=== PATIENT | male | born 1960 | race Caucasian/White ===

== ENCOUNTER 2018-01-05 22:35 | Inpatient (IN) | payer OTHER ==
[~2018-01-05] VITALS: Ht 175.3 cm; Wt 115.0 kg
[~2018-01-05 22:35] MED LIST: ACIP20TA19 PO; ALBU6.7H INH; CLON.2 PO; LOSA25TA31 PO
[2018-01-05 22:38] VITALS: BP 119/67; PULSE 86; RESP 18; TEMP 98.5; O2SAT 97
[2018-01-05] MEDS ORDERED: LOSA25TA PO (23:27)
[2018-01-05] MEDS ORDERED: CLON0.1T PO (23:27)
[2018-01-05] MEDS ORDERED: METF500T PO (23:27)
[2018-01-05] MEDS ORDERED: CYAN1TAB24 PO (23:27)
[2018-01-05] MEDS ORDERED: OMEP10CA PO (23:27)
[2018-01-05] MEDS ORDERED: TRIA1CAP6 PO (23:27)
[2018-01-05] MEDS ORDERED: MULTTAB67 PO (23:27)
--- NOTE | 2018-01-05 23:51 | PD ---
HPI Chief Complaint: Musculoskeletal Complaint Time Seen by Provider: 23:42 Travel History International Travel<30 days: No Contact w/Intl Traveler<30days: No Traveled to known affect area: No History of Present Illness HPI The patient is a 57-year-old male that has been complaining of right hip pain for 4-5 weeks. At 9 PM tonight he flexed his hip slightly and felt a "pop" followed by excruciating pain around the greater trochanter. He comes in tonight with the pain of 8/10, sharp pain and throbbing pain. He denies any fever. PFSH Past Medical History Arthritis: No Asthma: No Autoimmune Disease: No Blood Disorders: No Anxiety: No Depression: No Heart Rhythm Problems: No Cancer: No Cardiovascular Problems: Yes (MURMUR) High Cholesterol: No Chemotherapy: No Chest Pain: No Congestive Heart Failure: No COPD: Yes Cerebrovascular Accident: No Diabetes: Yes (Type 2) Patient Takes Glucophage: Yes (Metformin 01/05/18 at 1200) Endocrine: No Gastrointestinal Disorders: Yes GERD: Yes Glaucoma: No Genitourinary: Yes Headaches: Yes Hepatitis: No Hiatal Hernia: Yes Hypertension: Yes Immune Disorder: No Kidney Stones: Yes Medical other: Yes (GERD, Bryant's syndrome) Musculoskeletal: No Neurologic: Yes Psychiatric: No Reproductive: No Respiratory: Yes (COPD) Migraines: Yes Myocardial Infarction: No Radiation Therapy: No Renal Failure: No Seizures: No Sleep Apnea: No Thyroid Disease: No Ulcer: No ?: Not Past Surgical History Abdominal Surgery: No AICD: No Appendectomy: No Arteriovenous Shunt: No Cardiac Surgery: No Cholecystectomy: No Ear Surgery: No Endocrine Surgery: No Eye Surgery: No Genitourinary Surgery: No Gynecologic Surgery: No Insulin Pump: No Joint Replacement: No Oral Surgery: Yes (ABCESS TOOTH REMOVAL 2002) Pacemaker: No Thoracic Surgery: No Other Surgery: Yes (KIDNEY STONE SX 1989) Social History Alcohol Use: No Tobacco Use: No (QUIT IN OCT) Substance Use: No Allergies-Medications (Allergen,Severity, Reaction): Coded Allergies: meperidine (Verified Allergy, Severe, 01/05/18) Reported Meds & Prescriptions Reported Meds & Active Scripts Active Reported B12 (Cyanocobalamin) 1,000 Mcg Tab 1 Tab PO DAILY Multiple Vitamin 1 Tab 1 Tab PO DAILY Omeprazole 10 Mg Cap 10 Mg PO DAILY Dyrenium (Triamterene) 50 Mg Cap 50 Mg PO DAILY Clonidine (Clonidine HCl) 0.1 Mg Tab 0.1 Mg PO DAILY Losartan (Losartan Potassium) 25 Mg Tab 25 Mg PO DAILY Metformin (Metformin HCl) 500 Mg Tab 500 Mg PO TIDPC Review of Systems Except as stated in HPI: all other systems reviewed are Neg Physical Exam Narrative GENERAL: The patient is alert, oriented 3 in moderate apparent distress with his right hip discomfort. His vital signs are normal. SKIN: Focused skin assessment warm/dry. HEAD: Atraumatic. Normocephalic. EYES: Pupils equal and round. No scleral icterus. No injection or drainage. ENT: No nasal bleeding or discharge. Mucous membranes pink and moist. NECK: Trachea midline. No JVD. CARDIOVASCULAR: Regular rate and rhythm. No murmur appreciated. RESPIRATORY: No accessory muscle use. Clear to auscultation. Breath sounds equal bilaterally. GASTROINTESTINAL: Abdomen soft, non-tender, nondistended. Hepatic and splenic margins not palpable. MUSCULOSKELETAL: No obvious deformities. No clubbing. No cyanosis. No edema. NEUROLOGICAL: Awake and alert. No obvious cranial nerve deficits. Motor grossly within normal limits. Normal speech. PSYCHIATRIC: Appropriate mood and affect; insight and judgment normal. Data Data Last Documented VS Vital Signs Date Time Temp Pulse Resp B/P (MAP) Pulse Ox O2 Delivery O2 Flow Rate FiO2 01/06/18 00:44 92 18 141/68 (92) 94 Room Air 01/05/18 22:[address] Hip W/O Contrast (01/05/18 ) Ketorolac Inj (Toradol Inj) (01/06/18 01:00) Bedside Glucose EDWARD.CSUGAR (01/06/18 01:50) Blood Glucose Goal (Criteria) (01/06/18 01:50) Hypoglycemia 70 Mg/Dl Or < (01/06/18 01:50) Notify Dr: Other (01/06/18 01:50) Dextrose 50% In Keven (Vial) Inj (D50w (Vi (01/06/18 02:00) Glucagon Inj (Glucagon Inj) (01/06/18 02:00) Insulin Aspart Supplemtl Scale (Novolog (01/06/18 08:00) Admit To Inpatient (01/06/18 ) Vital Signs (Adult) Q4H (01/06/18 01:50) Activity Oob With Assistance (01/06/18 01:50) Diet Regular Basic (01/06/18 Breakfast) Sodium Chlor 0.9% 1000 Ml Inj (Ns 1000 M (01/06/18 01:50) Sodium Chloride 0.9% Flush (Ns Flush) (01/06/18 02:00) Sodium Chloride 0.9% Flush (Ns Flush) (01/06/18 09:00) Ondansetron Inj (Zofran Inj) (01/06/18 02:00) Comprehensive Metabolic Panel (01/07/18 06:00) Complete Blood Count With Diff (01/07/18 06:00) Pt Request For Service (01/06/18 01:50) Case Management Consult (01/06/18 01:50) Scd Bilateral/Knee High EDWARD.BID (01/06/18 01:50) Misael Bilateral/Knee High EDWARD.QSHIFT (01/06/18 01:52) Acetaminophen (Tylenol) (01/06/18 02:00) Acetamin-Hydrocod 325-5 Mg (Hudson 5-325 (01/06/18 02:00) Docusate Sodium-Senna (Connie-Colace) (01/06/18 09:00) Magnesium Hydroxide Liq (Milk Of Magnesi (01/06/18 02:00) Sennosides (Senokot) (01/06/18 02:00) Bisacodyl Supp (Dulcolax Supp) (01/06/18 02:00) Lactulose Liq (Lactulose Liq) (01/06/18 02:00) Inpatient Certification (01/06/18 ) Consult Orthopedic (01/06/18 ) Clonidine (Catapres) (01/06/18 09:00) Losartan (Cozaar) (01/06/18 09:00) Multivitamin (Theragran) (01/06/18 09:00) Admit Order (Ed Use Only) (01/06/18 01:52) Morphine Inj (Morphine Inj) (01/06/18 02:00) MDM Medical Decision Making Medical Screen Exam Complete: Yes Emergency Medical Condition: Yes Medical Record Reviewed: Yes Differential Diagnosis avulsion fracture, hip fracture, strain right hip, contusion hip Narrative Course The patient has a pathologic fracture of the right hip. It is painful and he cannot walk. He will be admitted to [facility]. I discussed the patient with Dr. Kat. Arnaud Zavala MD Jan 05, 2018 23:51
[2018-01-06] VITALS (8 sets, daily range): BP systolic 109–144; BP diastolic 58–87; PULSE 81–96; RESP 16–22; TEMP 96.3–98.5; O2SAT 94–98
[2018-01-06] MEDS ORDERED: KETOROLAC TROMETHAMINE 60 MG/2 ML (IM) VIAL IM ONE (01:00)
--- NOTE | 2018-01-06 01:38 | RADRPT ---
EXAM DATE/TIME: 01/06/2018 00:47 [place] COMPARISON: No previous studies available for comparison. INDICATIONS : Trauma. Right hip pain x 1 month. Tonight he felt and heard a "pop" and had excruciating pain since . RADIATION DOSE: 21.54 CTDIvol (mGy) MEDICAL HISTORY : Chronic obstructive pulmonary disease. Gastroesophageal reflux disease. Renal calculi.Hypertension. Hiatal hernia. Diabetes. SURGICAL HISTORY : None. ENCOUNTER: Initial ACUITY: 1 month PAIN SCALE: 8/10 LOCATION: Right hip TECHNIQUE: Volumetric scanning of the hip was performed. Using automated exposure control and adjustment of the mA and/or kV according to patient size, radiation dose was kept as low as reasonably achievable to o btain optimal diagnostic quality images. DICOM format image data is available electronically for rev iew and comparison. FINDINGS: Abnormal appearance to the right iliac wing where there is a pathologic fracture through a dominant l ytic lesion measuring 4.9 x 3.1 cm destroying anterior and posterior cortex of the iliac wing. There is angulation at the inferior fracture line. There is also asymmetric soft tissue thickening of the iliac as an gluteus minimus muscles. The right acetabulum and proximal femur is intact. No fracture or significant degenerative change is seen. The sacrum is grossly intact. No lytic lesions seen in survey images of the left hemipelvis. CONCLUSION: 1. No hip fracture seen. 2. Pathologic fracture of the right iliac wing with associated 4.9 cm lytic lesion involving the late ral iliac wing and with associated adjacent soft tissue swelling. Differential considerations for th e lytic lesion include a metastasis, giant cell tumor, and brown tumor. Lucas Tyler MD on January 06, 2018 at 1:26 Board Certified Radiologist. This report was verified electronically.
[2018-01-06] MEDS ORDERED: SODIUM CHLOR 0.9% 1000 ML INJ 1,000 ML IV SCH (01:50)
[2018-01-06] MEDS ORDERED: ONDANSETRON HCL 4 MG/2 ML VIAL IVP PRN (02:00)
[2018-01-06] MEDS ORDERED: GLUCAGON 1 MG/ML VIAL OTHER PRN (02:00)
[2018-01-06] MEDS ORDERED: LACTULOSE SYRUP 20 GM/30 ML CUP PO PRN (02:00)
[2018-01-06] MEDS ORDERED: ACETAMINOPHEN 325 MG TAB PO PRN (02:00)
[2018-01-06] MEDS ORDERED: DEXTROSE 50% IN WATER 50 ML VIAL(D50) IV PUSH PRN (02:00)
[2018-01-06] MEDS ORDERED: MORPHINE SULFATE 4 MG/ML INJ IV PUSH PRN (02:00)
[2018-01-06] MEDS ORDERED: MAGNESIUM HYDROXIDE SUSP 30 ML CUP PO PRN (02:00)
[2018-01-06] MEDS ORDERED: SENNOSIDES 8.6 MG TAB PO PRN (02:00)
[2018-01-06] MEDS ORDERED: SODIUM CHLORIDE 0.9% FLUSH 10 ML FLUSH IV FLUSH PRN (02:00)
[2018-01-06] MEDS ORDERED: BISACODYL 10 MG SUPP RECTAL PRN (02:00)
[2018-01-06 03:13] LABS: ALBUMIN 2.4 GM/DL (3.4-5.0)
[2018-01-06 03:15] LABS: DIRECT BILIRUBIN ADULT 0.1 MG/DL (0.0-0.2)
[2018-01-06 03:17] LABS: INDIRECT BILIRUBIN 0.1 MG/DL (0.0-0.8); TOTAL BILIRUBIN ADULT 0.2 MG/DL (0.2-1.0); TOTAL PROTEIN 7.7 GM/DL (6.4-8.2)
[2018-01-06] MEDS: INSULIN ASPART SUPPLEMENTAL SCALE SQ SCH ×3 (08:00→21:11)
--- NOTE | 2018-01-06 08:55 | MB ---
cc: Naresh Barker MD DATE: 01/06/2018 REASON FOR CONSULTATION: Right iliac wing fracture. HISTORY OF PRESENT ILLNESS: Brielle is a 57-year-old male who has been complaining of right-sided hip pain for over a month. He states that he has been trying to be more active. He has a history of hypertension and diabetes. He has been walking more. He also took a job recently where he was walking more. He has noticed increasing right-sided hip pain. He has been limping for a few weeks. Last night he was sitting up from bed when he felt immediate pop in the right hip. He had severe pain. He presented to the Emergency Room where x-rays revealed a fracture of the right iliac wing. CT scan revealed probable pathologic fracture. He has known history of cancer. He states that his sister did have ovarian cancer with metastatic disease to her pelvis. He is currently awake and alert on the orthopedic floor. Pain is worse with movement. He has minimal pain at rest. PAST MEDICAL HISTORY: Illnesses: Diabetes, hypertension, history of heart murmur, reflux, COPD. PAST SURGICAL HISTORY: Abscessed tooth removal, kidney stone removal. ALLERGIES: MEPERIDINE. MEDICATIONS: B12 vitamin, omeprazole, clonidine, losartan, metformin. SOCIAL HISTORY: The patient denies alcohol, tobacco or drug use. REVIEW OF SYSTEMS: The patient denies headache, visual changes, neck pain, chest pain, shortness of breath, abdominal pain, nausea, vomiting or recent weight loss, fever, chills, numbness or tingling of extremities or recent weight loss. He complains of right-sided hip pain. The pain is worse with movement. LABORATORY DATA: Patient has an AST of 18 and ALT of 32, alkaline phosphatase of 140, albumin of 2.4. IMAGING STUDIES: A CT scan of the pelvis was reviewed. The patient has a fracture of the anterior iliac wing. There appears to be associated mass with it. PHYSICAL EXAMINATION: GENERAL: The patient is a well-developed, well-nourished, 57-year-old male. He is awake and alert. He is in no acute distress. He is moderately overweight. VITAL SIGNS: Temperature 98.1, pulse 87, respirations 22, blood pressure 120/58, O2 saturation is 96% on room air. HEENT: Head: The patient is normocephalic. Pupils are equal. NECK: Soft, nontender. The trachea is in the midline. ABDOMEN: Soft, nontender, nondistended. EXTREMITIES: Examination of bilateral upper extremities reveals no pain with shoulder, elbow and wrist motion. He has good cap refill in all fingers. Skin is intact. Radial pulses are palpable. Sensation is intact. Examination of left leg reveals no pain with hip, knee or ankle motion. Skin is intact. Dorsalis pedis pulses palpable. Sensation is intact. Straight leg raise is negative. Examination of right leg reveals minimal pain with gentle hip, knee or ankle motion. Skin is intact. Dorsalis pedis pulses palpable. He has pain when trying to lift his leg up off the bed. Dorsalis pedis pulses palpable. Examination of his pelvis reveals tenderness to palpation directly over the iliac wing. Skin is intact. There is no bruising or ecchymosis. IMPRESSION: 1. Diabetes. 2. Hypertension. 3. Right iliac wing fracture which appears to be pathologic in nature. PLAN: Treatment options were discussed with the patient. At this point, I would recommend nonsurgical treatment of the fracture at this time. The patient will need a further workup to evaluate for possible primary versus metastatic carcinoma or sarcoma. At this point, I will order a CT scan with contrast of his chest, abdomen and pelvis to evaluate for other tumors. I will also consult Medical Oncology to further aid in workup of this possible pathologic fracture. The patient is agreeable with this plan. All questions were answered. A mid-level provider in my office, nurse practitioner or PA, may see this patient on a follow-up basis and continue to implement the objective of this plan including: Starting or adjusting medications, injections of muscle, tendon, bursa or joints, cast application, orthotic or brace application, physical therapy, further radiographic studies including x-ray, MRI, CT, ultrasounds or bone scan, vascular studies, neurologic studies, or other specialist consultations, and proceeding with surgical management as appropriate. MD JAVI Paige/SITA , 08:30 AM , 08:54 AM
[2018-01-06] MEDS: SODIUM CHLORIDE 0.9% FLUSH 10 ML FLUSH IV FLUSH SCH ×2 (09:00→21:00)
[2018-01-06] MEDS ORDERED: DIATRIZOATE MEGLUM/DIATRIZOATE SOD 9 ML CUP PO ONE (09:00)
[2018-01-06] MEDS: MULTIVITAMIN TAB PO SCH (10:56)
[2018-01-06] MEDS: LOSARTAN 25 MG TAB PO SCH (10:56)
[2018-01-06] MEDS: cloNIDine HCL 0.1 MG TAB PO SCH (10:56)
[2018-01-06] MEDS: DOCUSATE SODIUM 50 MG/SENNA 8.6 MG TAB PO SCH ×2 (10:56→20:59)
--- NOTE | 2018-01-06 11:16 | HHI.HP ---
[facility] Primary Care Physician Admission Diagnosis Pathologic fracture right iliac wing Diagnoses: Chief Complaint: Right hip pain Travel History International Travel<30 Days: No Contact w/Intl Traveler <30 Da: No Traveled to Known Affected Are: No History of Present Illness This is a 57-year-old male with history of hypertension, type 2 diabetes, COPD presenting with right hip pain for the past 4-5 weeks which worsened last night. Per patient, he has been having right hip pain for more than a month now , has been irritating, to the point that he was limping but he did not do anything with it. Last night, while he was trying to get off the bed, he felt a pop on his right hip followed by excruciating pain hence the patient decided to go to the emergency department. Upon evaluation, the patient was found to have a pathologic right iliac wing fracture with a 4.9 centimeters lesion involving the lateral iliac wing associated with soft tissue swelling. In retrospect, the patient has been losing weight, about 30-40 pounds in the last 2 -3 months but this was accompanied by moderate exercise and diet. Patient also has been having low-grade fever, subjective accompanied by drenching night sweats. He also started having a nonproductive cough, clear if any without any associated hemoptysis but with mild shortness of breath or easy fatigability when doing strenuous exercises. Patient denies any chest pain, palpitations, abdominal pain, nausea, vomiting, hematochezia or melena. He however has noticed intermittent diarrhea and constipation every 3-4 days. Of note, he had a right thyroid nodule, status post biopsy about 2 years ago, allegedly benign. There is no history of leukemia or lymphoma but sister has history of ovarian carcinoma who in August of last year. He used to be a smoker, smoked 2 pack 6 day for about 35 years, he however stopped about 10 years ago. His last colonoscopy was about 2 years ago, allegedly he had polyps that were all benign. He also endorses mild dysuria, hesitancy and nocturia. He was allegedly screened for prostate cancer and was allegedly normal last year. He further denies any headache, blurring of vision, ear pain, sore throat, runny nose, pain anywhere else, rash, or new joint pain other than the hip pain. Review of Systems ROS Limitations: Other (All other pertinent systems were reviewed and are negative.) Past Family Social History Past Medical History Diabetes type 2 Hypertension GERD with possible Bryant's COPD Benign heart murmur Right thyroid nodules status post biopsy Hiatal hernia Past Surgical History Endoscopic had a hernia surgery Tooth removal for abscess in 2002 Kidney stone surgery 1989 Reported Medications B12 (Cyanocobalamin) 1,000 Mcg Tab 1 Tab PO DAILY Multiple Vitamin 1 Tab 1 Tab PO DAILY Omeprazole 10 Mg Cap 10 Mg PO DAILY Dyrenium (Triamterene) 50 Mg Cap 50 Mg PO DAILY Clonidine (Clonidine HCl) 0.1 Mg Tab 0.1 Mg PO DAILY Losartan (Losartan Potassium) 25 Mg Tab 25 Mg PO DAILY Metformin (Metformin HCl) 500 Mg Tab 500 Mg PO TIDPC Allergies: Coded Allergies: meperidine (Verified Allergy, Severe, 01/05/18) Family History Prominent history of diabetes, hypertension and COPD in the family Sister of ovarian cancer metastatic to the bone Social History The patient is , currently non-smoker, stopped smoking 10 years ago but used to smoke 2 packs a day for 35 years No significant alcohol use Physical Exam Vital Signs Vital Signs Date Time Temp Pulse Resp B/P (MAP) Pulse Ox O2 Delivery O2 Flow Rate FiO2 01/06/18 06:19 98.1 87 22 120/58 (78) 96 01/06/18 05:35 01/06/18 04:26 82 18 110/65 (80) 95 Room Air 01/06/18 03:30 18 01/06/18 02:29 92 18 144/80 (101) 97 Room Air 01/06/18 00:44 92 18 141/68 (92) 94 Room Air 01/05/18 23:18 18 01/05/18 22:38 98.5 86 18 119/67 (84) 97 Physical Exam GENERAL: Not in acute distress, well-nourished. HEAD: Atraumatic. Normocephalic. EYES: PERRL, full EOMs, no jaundice, nonicteric, pink conjunctivae without injection, moist mucosa ENT: Nose without bleeding, purulent drainage. NECK: Trachea midline, no mass, thyroid is not palpable. CARDIOVASCULAR: Regular rate and rhythm without murmurs, gallops, or rubs. RESPIRATORY: Clear to auscultation with normal respiratory effort. Breath sounds equal bilaterally. No use of accessory muscles of respiration. GASTROINTESTINAL: Abdomen soft, normal bowel sounds, obese but not distended. No guarding. JONATHAN and exam deferred. MUSCULOSKELETAL: Extremities without clubbing, cyanosis, or edema. Hip tenderness with movement. No calf tenderness. Distal pulses intact, 2+ bilaterally. INTEGUMENTARY: Warm and dry, no rash of generalized distribution. NEUROLOGICAL: Awake, alert, oriented 3. No obvious cranial nerve deficits. Moves all 4 extremities, muscle strength testing 5 over 5. Motor and sensory grossly within normal limits. .Supple neck, no meningeal signs. Grossly negative cerebellar examination. No focal neurologic deficits. PSYCHIATRIC: Normal mood, appropriate affect. Laboratory Laboratory Tests Test 01/06/18 02:40 Total Bilirubin 0.2 Direct Bilirubin 0.1 Indirect Bilirubin 0.1 Aspartate Amino Transf (AST/SGOT) 18 Alanine Aminotransferase (ALT/SGPT) 32 Alkaline Phosphatase 140 Total Protein 7.7 Albumin 2.4 Imaging Last Impressions Lower Extremity CT 01/05/18 0000 Signed Impressions: Service Date/Time: Saturday, January 06, 2018 00:47 - CONCLUSION: 1. No hip fracture seen. 2. Pathologic fracture of the right iliac wing with associated 4.9 cm lytic lesion involving the lateral iliac wing and with associated adjacent soft tissue swelling. Differential considerations for the lytic lesion include a metastasis, giant cell tumor, and brown tumor. Lucas Tyler MD Caprini VTE Risk Assessment Caprini VTE Risk Assessment: Mod/High Risk (score >= 2) Caprini Risk Assessment Model Point Value = 1 Point Value = 2 Point Value = 3 Point Value = 5 Age 41-60 Minor surgery BMI > 25 kg/m2 Swollen legs Varicose veins or History of unexplained or recurrent spontaneous Oral contraceptives or hormone replacement Sepsis (< 1 month) Serious lung disease, including pneumonia (< 1 month) Abnormal pulmonary function Acute myocardial infarction Congestive heart failure (< 1 month) History of inflammatory bowel disease Medical patient at bed rest Age 61-74 Arthroscopic surgery Major open surgery (> 45 min) Laparoscopic surgery (> 45 min) Malignancy Confined to bed (> 72 hours) Immobilizing plaster cast Central venous access Age >= 75 History of VTE Family history of VTE Factor V Leiden Prothrombin [id number] Lupus anticoagulant Anticardiolipin antibodies Elevated serum homocysteine Heparin-induced thrombocytopenia Other congenital or acquired thrombophilia Stroke (< 1 month) Elective arthroplasty Hip, pelvis, or leg fracture Acute spinal cord injury (< 1 month) Prophylaxis Regimen Total Risk Factor Score Risk Level Prophylaxis Regimen 0-1 Low Early ambulation 2 Moderate Order ONE of the following: *Sequential Compression Device (SCD) *Heparin 5000 units SQ BID 3-4 Higher Order ONE of the following medications: *Heparin 5000 units SQ TID *Enoxaparin/Lovenox 40 mg SQ daily (WT < 150 kg, CrCl > 30 mL/min) *Enoxaparin/Lovenox 30 mg SQ daily (WT < 150 kg, CrCl > 10-29 mL/min) *Enoxaparin/Lovenox 30 mg SQ BID (WT < 150 kg, CrCl > 30 mL/min) AND/OR *Sequential Compression Device (SCD) 5 or more Highest Order ONE of the following medications: *Heparin 5000 units SQ TID (Preferred with Epidurals) *Enoxaparin/Lovenox 40 mg SQ daily (WT < 150 kg, CrCl > 30 mL/min) *Enoxaparin/Lovenox 30 mg SQ daily (WT < 150 kg, CrCl > 10-29 mL/min) *Enoxaparin/Lovenox 30 mg SQ BID (WT < 150 kg, CrCl > 30 mL/min) AND *Sequential Compression Device (SCD) Assessment and Plan Assessment and Plan This is a 57-year-old male with history of hypertension, diabetes mellitus and history of COPD presented with a pathologic fracture of the right hip Right hip pathologic fracture-consult orthopedics, per Dr. Barker, nonsurgical management for now. Pain control with bowel regimen, consult physical therapy Rule out malignancy-CT scan of the hip showed iliac wing, 4.9 cm lytic lesion, possible metastatic disease versus primary carcinoma. Patient has B symptoms based on history, rule out lymphoma, check CT scan of the abdomen, pelvis and chest, consult medical oncology, check PSA, check fecal occult blood. He is a previous smoker with [id number] history, stopped smoking 10 years ago. Of note, patient was recently screened for prostate cancer, allegedly negative. Colonoscopy was 2 years ago, had multiple polyps but all were benign. Hypoalbuminemia-check prealbumin, total protein is normal. Check CBC and BMP. Diabetes mellitus-hold oral hypoglycemic agents including metformin for now, patient will likely be receiving contrast, sliding scale insulin. Hypertension-restart clonidine, losartan, Lovenox for DVT prophylaxis. Physician Certification 2 Midnight Certification Type: Admission for Inpatient Services Order for Inpatient Services The services are ordered in accordance with Medicare regulations or non- Medicare payer requirements, as applicable. In the case of services not specified as inpatient-only, they are appropriately provided as inpatient services in accordance with the 2-midnight benchmark. Estimated LOS (days): 2 days is the estimated time the patient will need to remain in the hospital, assuming treatment plan goals are met and no additional complications. Post-Hospital Plan: Home Health Eric Kim MD Jan 06, 2018 11:16
[2018-01-06] MEDS: ACETAMINOPHEN/HYDROcodone 325 MG/5 MG TAB PO PRN ×3 (11:30→20:59)
[2018-01-06 11:50] LABS: CREATININE 1.47 MG/DL (0.60-1.30)
[2018-01-06] MEDS: ENOXAPARIN SODIUM 40 MG/0.4 ML SYRINGE SQ SCH (13:10)
[2018-01-06] MEDS ORDERED: IOHEXOL 350 MG/ML 10 ML VIAL (for RAD DIAG) IVCONTRAST ONE (14:40)
--- NOTE | 2018-01-06 15:24 | RADRPT ---
EXAM DATE/TIME: 01/06/2018 14:17 [facility] COMPARISON: CT HIP RIGHT W/O CONTRAST, January 06, 2018, 0:47. INDICATIONS : Abnormal hip x-ray, evaluate for metastasis. IV CONTRAST: 93 cc Omnipaque 350 (iohexol) IV ; Cumulative dose for multiple exams. ORAL CONTRAST: Prescribed oral contrast ingested. RADIATION DOSE: 19.79 CTDIvol (mGy) ; Combined studies MEDICAL HISTORY : Gastroesophageal reflux disease. Hypertension. Chronic obstructive pulmonary disease.diabetes SURGICAL HISTORY : renal stone removed ENCOUNTER: Initial ACUITY: 1 day PAIN SCALE: 7/10 LOCATION: Right hip TECHNIQUE: Volumetric scanning of the abdomen and pelvis was performed. Using automated exposure control and ad justment of the mA and/or kV according to patient size, radiation dose was kept as low as reasonably achievable to obtain optimal diagnostic quality images. DICOM format image data is available electro nically for review and comparison. FINDINGS: LOWER LUNGS: There are numerous masses seen in the lower lungs bilaterally. LIVER: There is diffuse decreased attenuation to the liver. No focal hepatic lesions are seen. SPLEEN: Normal size without lesion. PANCREAS: Within normal limits. KIDNEYS: There is a large left renal mass seen at the mid and inferior left kidney measuring at least 16.5 cm in length, 11 cm in AP dimension and 10.5 cm in transverse dimension. There is a 1.7 cm right renal c yst. No hydronephrosis is seen. The renal veins appear grossly patent. There is a prominent lymph nod e seen in the left periaortic region measuring 1.8 cm. ADRENAL GLANDS: Within normal limits. VASCULAR: There is no aortic aneurysm. BOWEL/MESENTERY: There is a moderate hiatal hernia. There are scattered colonic diverticula. ABDOMINAL WALL: Within normal limits. RETROPERITONEUM: Again noted is the left periaortic enlarged lymph node measuring 1.8 cm. There do appear to be promin ent varices in the left lower retroperitoneum just above the pelvic inlet region. There does appear t o be decreased density within the left external iliac vein concerning for possible thrombus in this r egion. BLADDER: No wall thickening or mass. REPRODUCTIVE: Within normal limits. INGUINAL: There is no lymphadenopathy or hernia. MUSCULOSKELETAL: There is a pathological fracture with a large lucent lesion seen at the right iliac bone. CONCLUSION: 1. Large left renal mass will certainly representing a large left renal cell carcinoma. There does ap pear to be enlarged lymph node seen in the left retroperitoneum. 2. Numerous masses in the lung bases likely related to metastatic disease. 3. Pathological fracture through a metastatic lesion in the right iliac bone. 4. Venous collaterals in the left lower abdomen. There is questionable decreased density in the left common iliac vein concerning for possible thrombus. 5. Hepatic steatosis. 6. Moderate hiatal hernia. Jose Roberto Rico MD on January 06, 2018 at 15:14 Board Certified Radiologist. This report was verified electronically.
--- NOTE | 2018-01-06 15:28 | RADRPT ---
EXAM DATE/TIME: 01/06/2018 14:17 [facility] COMPARISON: No previous studies available for comparison. INDICATIONS : Abnormal hip x-ray, evaluate for metastasis. IV CONTRAST: 93 cc Omnipaque 350 (iohexol) IV ; Cumulative dose for multiple exams. RADIATION DOSE: 19.79 CTDIvol (mGy) ; Combined studies MEDICAL HISTORY : Gastroesophageal reflux disease. Chronic obstructive pulmonary disease. diabetes, hypertension, renal stone SURGICAL HISTORY : renal stone removed ENCOUNTER: Initial ACUITY: 1 day PAIN SCALE: 0/10 LOCATION: Bilateral chest TECHNIQUE: Volumetric scanning of the chest was performed. Using automated exposure control and adjustment of t he mA and/or kV according to patient size, radiation dose was kept as low as reasonably achievable to obtain optimal diagnostic quality images. DICOM format image data is available electronically for review and comparison. Follow-up recommendations for detected pulmonary nodules are based at a minimum on nodule size and pa tient risk factors according to Fleischner Society Guidelines. FINDINGS: LUNGS: There are numerous masses seen throughout both lungs measuring up to 2 cm thought to represent widesp read metastatic lesions. PLEURA: There is no pleural thickening or pleural effusion. MEDIASTINUM: The heart and great vessels demonstrate no acute abnormality. There is no mediastinal or hilar lymph adenopathy. AXILLAE: Within normal limits. No lymphadenopathy. SKELETAL: Within normal limits for patient age. MISCELLANEOUS: The visualized upper abdominal organs demonstrate no acute abnormality. There is a moderate hiatal he rnia. There is 2.7 cm right thyroid nodule. The left renal mass is again seen. The patient has had a CT of the abdomen dictated on a separate report. CONCLUSION: 1. Numerous lung nodules consistent with widespread metastatic disease. 2. Large left renal mass thought to represent a renal cell carcinoma. 3. Moderate hiatal hernia. 4. 2.7 cm right thyroid nodule. Jose Roberto Rico MD on January 06, 2018 at 15:22 Board Certified Radiologist. This report was verified electronically.
--- NOTE | 2018-01-06 16:31 | MB ---
cc: Elvira Badillo MD DATE: 01/06/2018 CHIEF COMPLAINT: 1. Pathologic fracture of right iliac wing associated with a 4.9 cm lytic lesion involving the lateral iliac wing with associated adjacent soft tissue swelling. 2. Evaluate for possible malignancy. HISTORY OF PRESENT ILLNESS: Mr. Gillette is a 57-year-old gentleman with a history of hypertension, type 2 diabetes mellitus, COPD, who presented to the hospital on 01/06/2018, with a 4-5 week history of worsening right hip pain. He reports that over the past few weeks, his pain has been so bad that he has been limping. Prior to the past several weeks, he had mild pain in that same location. The night prior to admission, when he was trying to get up, he felt a pop in his right hip followed by excruciating pain that did not resolve. He was immediately evaluated in the emergency room where imaging studies revealed a pathologic right iliac wing fracture with a 4.9 cm lytic lesion involving the lateral iliac wing with associated soft tissue swelling. The patient also reports unintentional weight loss, low grade fever and drenching night sweats over the past several months leading up to his hospital stay. He also reports mild shortness of breath and easy fatigue. PAST MEDICAL HISTORY: 1. Diabetes mellitus. 2. Hypertension. 3. GERD with Bryant esophagus. The patient reports that in the past, he has received laser therapy or some sort of GI surgery for the evaluation and management of Bryant's. 4. COPD. 5. Thyroid nodule, status post biopsy, which was benign. 6. Hiatal hernia. PAST SURGICAL HISTORY: 1. Hernia surgery. 2. Tooth removal for abscess in 2002. 3. Kidney stone surgery in 1998. HOME MEDICATIONS: Include: 1. Losartan. 2. Clonidine. 3. Triamterene/hydrochlorothiazide. 4. Omeprazole. 5. Vitamin C. 6. Multivitamin. 7. Vitamin B12. 8. Metformin. 9. Glipizide. ROS: as above in HPI FAMILY HISTORY: Sister of ovarian cancer. No other family history of malignancy. SOCIAL HISTORY: He is . He reports past tobacco abuse, but none currently. No alcohol use. PHYSICAL EXAMINATION: VITAL SIGNS: Temperature 98.5, pulse 90, respiratory rate 18, blood pressure 109/58. GENERAL: Overweight man, in no distress, resting comfortably in bed with at bedside. HEENT: Head normocephalic, atraumatic. On the top of his head, he has approximately 5 mm mole, which he reports has grown over the past 3 months. It appears that there is some bleeding associated with this mole. NECK: Supple with no palpable lymphadenopathy. CARDIOVASCULAR: Regular rate and rhythm. No murmurs. RESPIRATORY: Clear to auscultation bilaterally. ABDOMEN: Soft, nontender, nondistended. Bowel sounds present. EXTREMITIES: With no edema. MUSCULOSKELETAL: Pain with movement of right hip. NEUROLOGIC: Grossly nonfocal. PSYCHIATRIC: Appropriate mood and affect. ASSESSMENT AND PLAN: 1. Right iliac wing lesion associated with a pathologic fracture. CT scan of the chest, abdomen and pelvis to complete staging is pending. Will also order a bone scan as well as a PSA. The patient reports that he is up-to-date with the remainder of his health maintenance. Will need to discuss with interventional radiology ability to perform CT-guided biopsy of this lesion. 2. Right hip pathologic fracture. He has been seen by orthopedic surgery who do not plan to take him to the operating room at this point in time. 3. Bony disease. He will also need to, in the outpatient setting, be further evaluated for bisphosphonate therapy. Inpatient oncology team will continue to follow. MD SIENNA Coburn/MYRTLE , 03:16 PM , 04:30 PM TI
[2018-01-07] MEDS: ACETAMINOPHEN/HYDROcodone 325 MG/5 MG TAB PO PRN ×4 (02:36→20:54)
[2018-01-07 07:43] LABS: AUTOMATED NEUTROPHIL # 5.3 TH/MM3 (1.8-7.7); BASOPHIL % 0.6 % (0.0-2.0); EOSINOPHIL # 0.2 TH/MM3 (0-0.4); EOSINOPHIL % 2.8 % (0.0-4.0); HEMATOCRIT 33.4 % (39.0-51.0); HEMOGLOBIN 10.4 GM/DL (13.0-17.0); LYMPH % 13.9 % (9.0-44.0); MEAN CELL VOLUME 69.2 FL (80.0-100.0); MEAN CORPUSCULAR HEMOGLOBIN 21.6 PG (27.0-34.0); MEAN CORPUSCULAR HGB CONC 31.2 % (32.0-36.0); MONO % 7.4 % (0.0-8.0); MONOCYTE # 0.5 TH/MM3 (0-0.9); NEUT % 75.3 % (16.0-70.0); PLATELET COUNT 444 TH/MM3 (150-450); RED BLOOD COUNT 4.82 MIL/MM3 (4.50-5.90)
[2018-01-07 08:00] VITALS: BP 129/74; PULSE 84; RESP 16; TEMP 97.4; O2SAT 96
[2018-01-07] MEDS: INSULIN ASPART SUPPLEMENTAL SCALE SQ SCH ×4 (08:00→20:53)
[2018-01-07] MEDS: DOCUSATE SODIUM 50 MG/SENNA 8.6 MG TAB PO SCH ×2 (08:07→20:53)
[2018-01-07] MEDS: MULTIVITAMIN TAB PO SCH (08:07)
[2018-01-07] MEDS: cloNIDine HCL 0.1 MG TAB PO SCH (08:07)
[2018-01-07] MEDS: LOSARTAN 25 MG TAB PO SCH (08:07)
[2018-01-07 08:09] LABS: ALBUMIN 2.9 GM/DL (3.4-5.0); ALT (GPT) 30 U/L (12-78); AST (GOT) 12 U/L (15-37); BICARBONATE 26.3 MEQ/L (21.0-32.0); BLOOD UREA NITROGEN 19 MG/DL (7-18); CALCIUM 10.5 MG/DL (8.5-10.1); CHLORIDE 100 MEQ/L (98-107); CREATININE 1.42 MG/DL (0.60-1.30); GLOMERULAR FILTRATION RATE 51 ML/MIN (>89); GLUCOSE,RANDOM 231 MG/DL (74-106); SODIUM (NA) 136 MEQ/L (136-145)
[2018-01-07 08:11] LABS: ALKALINE PHOSPHATASE 166 U/L (45-117); TOTAL BILIRUBIN ADULT 0.4 MG/DL (0.2-1.0); TOTAL PROTEIN 8.9 GM/DL (6.4-8.2)
[2018-01-07] MEDS: SODIUM CHLORIDE 0.9% FLUSH 10 ML FLUSH IV FLUSH SCH ×2 (08:46→20:55)
--- NOTE | 2018-01-07 09:02 | PD.ORT.PN ---
Subjective Subjective Remarks Sitting in chair. Moderate pain to right hip Objective Vitals Vital Signs Date Time Temp Pulse Resp B/P (MAP) Pulse Ox O2 Delivery O2 Flow Rate FiO2 01/06/18 23:56 98.0 81 16 120/67 (84) 01/06/18 20:51 96.3 86 18 140/87 (104) 98 01/06/18 16:00 98.0 96 18 123/66 (85) 94 01/06/18 12:00 98.5 90 18 109/58 (75) 96 I/O 01/06/18 01/06/18 01/06/18 01/07/18 01/07/18 01/07/18 07:00 15:00 23:00 07:00 15:00 23:00 Intake Total 300 ml Output Total 500 ml Balance 300 ml -500 ml Intake IV Total 300 ml Output Urine Total 500 ml # Voids 1 Result Diagram: 01/07/18 0616 01/07/18 0616 Imaging Last [address] 01/06/18 0000 Signed Impressions: Service Date/Time: Saturday, January 06, 2018 14:17 - CONCLUSION: 1. Numerous lung nodules consistent with widespread metastatic disease. 2. Large left renal mass thought to represent a renal cell carcinoma. 3. Moderate hiatal hernia. 4. 2.7 cm right thyroid nodule. Jose Roberto Rico MD Abdomen/Pelvis CT 01/06/18 0000 Signed Impressions: Service Date/Time: Saturday, January 06, 2018 14:17 - CONCLUSION: 1. Large left renal mass will certainly representing a large left renal cell carcinoma. There does appear to be enlarged lymph node seen in the left retroperitoneum. 2. Numerous masses in the lung bases likely related to metastatic disease. 3. Pathological fracture through a metastatic lesion in the right iliac bone. 4. Venous collaterals in the left lower abdomen. There is questionable decreased density in the left common iliac vein concerning for possible thrombus. 5. Hepatic steatosis. 6. Moderate hiatal hernia. Jose Roberto Rico MD Lower Extremity CT 01/05/18 0000 Signed Impressions: Service Date/Time: Saturday, January 06, 2018 00:47 - CONCLUSION: 1. No hip fracture seen. 2. Pathologic fracture of the right iliac wing with associated 4.9 cm lytic lesion involving the lateral iliac wing and with associated adjacent soft tissue swelling. Differential considerations for the lytic lesion include a metastasis, giant cell tumor, and brown tumor. Lucas Tyler MD Objective Remarks Examination of the right lower extremity reveals moderate tenderness to palpation over the iliac wing. He has moderate pain with active motion of the hip with minimal pain with passive range of motion of hip. Distally he has intact sensation with good capillary refills. Assessment & Plan Assessment and Plan Pathologic fracture to right iliac wing Weightbearing as tolerated right lower extremity. Avoid active leg lifts or abduction Oncology for pathologic workup Surendra Roach Jr. Jan 07, 2018 09:02
--- NOTE | 2018-01-07 10:59 | HHI.PR ---
Subjective Remarks Ongoing workup for pathological fracture with mass. Further masses discovered on CAT scan imaging. There is a left renal mass, bilateral lung nodules, the original iliac bone findings with associated soft mass, and retroperitoneal nodularity. Suspicion for renal cell carcinoma based on imaging. Regular PSA is within normal limits. Further PSA testing is pending. Bone scan is pending. Patient may need a biopsy. Objective Vital Signs Date Time Temp Pulse Resp B/P (MAP) Pulse Ox O2 Delivery O2 Flow Rate FiO2 01/07/18 08:00 97.4 84 16 129/74 (92) 96 01/06/18 23:56 98.0 81 16 120/67 (84) 01/06/18 20:51 96.3 86 18 140/87 (104) 98 01/06/18 16:00 98.0 96 18 123/66 (85) 94 01/06/18 12:00 98.5 90 18 109/58 (75) 96 I/O 01/06/18 01/06/18 01/06/18 01/07/18 01/07/18 01/07/18 06:59 14:59 22:59 06:59 14:59 22:59 Intake Total 300 ml Output Total 500 ml Balance 300 ml -500 ml Intake IV Total 300 ml Output Urine Total 500 ml # Voids 1 Result Diagram: 01/07/18 0616 01/07/18 0616 Objective Remarks GENERAL: NAD, A&Ox3 HEAD: Normocephalic. NECK: Supple, trachea midline. No lymphadenopathy. EYES: No scleral icterus. No injection or drainage. CARDIOVASCULAR: Regular rate and rhythm without murmurs, gallops, or rubs. RESPIRATORY: Breath sounds equal bilaterally. No accessory muscle use. GASTROINTESTINAL: Abdomen soft, non-tender, nondistended. MUSCULOSKELETAL: No cyanosis, or edema. SKIN: Warm and dry. NEURO: No focal neurological deficitis. A/P Problem List: (1) Fracture of right iliac crest ICD Code: S32.301A - Unspecified fracture of right ilium, initial encounter for closed fracture (2) Pathologic fracture ICD Code: M84.40XA - Pathological fracture, unspecified site, initial encounter for fracture (3) Lung mass ICD Code: R91.8 - Other nonspecific abnormal finding of lung field (4) Renal mass ICD Code: N28.89 - Other specified disorders of kidney and ureter Assessment and Plan 57-year-old male with history of hypertension, diabetes mellitus and history of COPD presented with a pathologic fracture of the right hip Right hip pathologic fracture No surgical intervention needed With her following Continue pain control Continue physical therapy Right iliac crest mass Right renal mass Lung masses bilaterally Retroperitoneal lymphadenopathy Suspected metastatic cancer Further workup needed Bone scan pending Oncology following Hypoalbuminemia Likely related to cancer Follow Diabetes mellitus Insulin sliding scale Diabetic diet Follow blood sugars Hypertension Continue: clonidine, losartan, DVT prophylaxis Lovenox Roge Reyes MD Jan 07, 2018 10:59
--- NOTE | 2018-01-07 11:00 | PD.ONC.PN ---
Subjective Subjective Remarks Afebrile overnight. Patient resting in bed. still having pain in right hip. worried about the possibility of cancer. Objective Data Date Time Temp Pulse Resp B/P (MAP) Pulse Ox O2 Delivery O2 Flow Rate FiO2 01/07/18 08:00 97.4 84 16 129/74 (92) 96 01/06/18 23:56 98.0 81 16 120/67 (84) 01/06/18 20:51 96.3 86 18 140/87 (104) 98 01/06/18 16:00 98.0 96 18 123/66 (85) 94 01/06/18 12:00 98.5 90 18 109/58 (75) 96 Result Diagram: 01/07/1816 01/07/18615 Laboratory Results Laboratory Tests Test 01/06/18 11:10 01/06/18 13:28 01/07/18 06:16 Blood Urea Nitrogen 22 MG/DL 19 MG/DL Creatinine 1.47 MG/DL 1.42 MG/DL Estimat Glomerular Filtration Rate 49 ML/MIN 51 ML/MIN BUN/Creatinine Ratio 15 RATIO Prostate Specific Antigen 1.43 NG/ML White Blood Count 7.0 TH/MM3 Red Blood Count 4.82 MIL/MM3 Hemoglobin 10.4 GM/DL Hematocrit 33.4 % Mean Corpuscular Volume 69.2 FL Mean Corpuscular Hemoglobin 21.6 PG Mean Corpuscular Hemoglobin Concent 31.2 % Red Cell Distribution Width 19.0 % Platelet Count 444 TH/MM3 Mean Platelet Volume 8.0 FL Neutrophils (%) (Auto) 75.3 % Lymphocytes (%) (Auto) 13.9 % Monocytes (%) (Auto) 7.4 % Eosinophils (%) (Auto) 2.8 % Basophils (%) (Auto) 0.6 % Neutrophils # (Auto) 5.3 TH/MM3 Lymphocytes # (Auto) 1.0 TH/MM3 Monocytes # (Auto) 0.5 TH/MM3 Eosinophils # (Auto) 0.2 TH/MM3 Basophils # (Auto) 0.0 TH/MM3 CBC Comment DIFF FINAL Differential Comment Random Glucose 231 MG/DL Total Protein 8.9 GM/DL Albumin 2.9 GM/DL Calcium Level 10.5 MG/DL Alkaline Phosphatase 166 U/L Aspartate Amino Transf (AST/SGOT) 12 U/L Alanine Aminotransferase (ALT/SGPT) 30 U/L Total Bilirubin 0.4 MG/DL Sodium Level 136 MEQ/L Potassium Level 3.8 MEQ/L Chloride Level 100 MEQ/L Carbon Dioxide Level 26.3 MEQ/L Anion Gap 10 MEQ/L Administered Medications Medications (Trade) Dose Ordered Sig/Yaid Route PRN Reason Start Time Stop Time Status Last Admin Dose Admin Insulin Aspart (NovoLOG SUPPLEMENTAL SCALE) 1 ACHS SLIDING SCALE SQ 01/06/18 08:00 01/07/18 08:00 Sodium Chloride (NS Flush) 2 ml BID IV FLUSH 01/06/18 09:00 01/07/18 08:46 Acetaminophen/ Hydrocodone Bitart (Kinney 5-325 Mg) 1 tab Q4H PRN PO PAIN SCALE 3 TO 5 01/06/18 02:00 01/07/18 08:07 Morphine Sulfate (Morphine Inj) 2 mg Q3H PRN IV PUSH Pain 6-10 01/06/18 02:00 01/06/18 06:35 Senna/Docusate Sodium (Connie-Colace) 1 tab BID PO 01/06/18 09:00 01/07/18 08:07 Clonidine (Catapres) 0.1 mg DAILY PO 01/06/18 09:00 01/07/18 08:07 Losartan Potassium (Cozaar) 25 mg DAILY PO 01/06/18 09:00 01/07/18 08:07 Multivitamins (Theragran) 1 tab DAILY PO 01/06/18 09:00 01/07/18 08:07 Enoxaparin Sodium (Lovenox Inj) 40 mg Q24H SQ 01/06/18 12:00 01/06/18 13:10 Objective Remarks GENERAL: Pleasant, anxious middle aged male, sitting up in bed. SKIN: Warm and dry. HEAD: Normocephalic. EYES: No injection or drainage. NECK: Supple, trachea midline. CARDIOVASCULAR: Regular rate and rhythm RESPIRATORY: Breath sounds equal bilaterally. No accessory muscle use. GASTROINTESTINAL: Abdomen soft, non-tender, nondistended. EXTREMITIES: No cyanosis NEUROLOGICAL: No obvious focal deficit. Awake, alert, and oriented x3. Assessment/Plan Assessment 57y/o male admitted with worsening right hip pain, found to have pathologic fracture, oncology consulted for possible malignancy. history of hypertension, type 2 diabetes mellitus, COPD, GERD with Bryant esophagus Thyroid nodule, status post biopsy, which was benign. Plan 1. Right iliac wing lesion associated with a pathologic fracture: --CT C/A/P: multiple lung masses, large left renal mass, enlarged lymph node in left retroperitoneum. --bone scan pending. --will need biopsy--consult invasive radiology to see if they could biopsy one of the lung masses or the retroperitoneal LN 2. question of thrombus in left common iliac vein. will order ultrasound of bilateral lower extremities to look for additional thrombus. patient is certainly at high risk for clot formation if he has malignancy. Currently on DVT prophylaxis with Lovenox. Attending Statement The exam, history, and the medical decision-making described in the above note were completed with the assistance of the mid-level provider. I reviewed and agree with the findings presented. I attest that I had a [id number] encounter with the patient on the same day, and personally performed and documented my assessment and findings in the medical record. Findings suspicious for metastatic cancer. Biopsy pending. Rachel Palafox Jan 07, 2018 11:00 Elvira Badillo MD January 08, 2018 09:00
[2018-01-07 12:00] VITALS: BP 138/79; PULSE 90; RESP 16; TEMP 97.5; O2SAT 94
--- NOTE | 2018-01-07 12:04 | RADRPT ---
EXAM DATE/TIME: 01/07/2018 11:16 [facility] COMPARISON: No previous studies available for comparison. INDICATIONS : Thrombosis. MEDICAL HISTORY : Bryant's esophagus. diabetic. htn. thyroid nodule. pylonoidal cyst. SURGICAL HISTORY : Bryant's esophagus repair. kidney stones removed. coxxyx removed. facial surgery. ENCOUNTER: Initial ACUITY: 1 day PAIN SCORE: 6/10 LOCATION: Bilateral leg. TECHNIQUE: Venous ultrasound of the left and right leg was performed from the inguinal ligament to the proximal calf. Real-time, color Doppler and spectral tracing, compression and augmentation techniques were us ed. FINDINGS: RIGHT LEG: There is normal compressibility of the deep venous system from the inguinal region to the proximal ca lf. No echogenic clot is seen in the lumen of the common femoral, femoral, popliteal, and posterior tibial veins. There is a normal response of the venous system to proximal and distal augmentation an d respiration. LEFT LEG: There is normal compressibility of the deep venous system from the inguinal region to the proximal ca lf. No echogenic clot is seen in the lumen of the common femoral, femoral, popliteal, and posterior tibial veins. There is a normal response of the venous system to proximal and distal augmentation an d respiration. CONCLUSION: Negative venous ultrasound study. Surendra Higgins MD on January 07, 2018 at 12:00 Board Certified Radiologist. This report was verified electronically.
[2018-01-07] MEDS: ENOXAPARIN SODIUM 40 MG/0.4 ML SYRINGE SQ SCH (13:00)
--- NOTE | 2018-01-07 14:52 | RADRPT ---
EXAM DATE/TIME: 01/07/2018 13:13 [facility] COMPARISON: CT ABDOMEN & PELVIS W CONTRAST, January 06, 2018, 14:17. CT THORAX W CONTRAST, January 06, 2018, 14:17. PRIOR BONE SCANS: INDICATIONS : Metastatic lesion in right iliac bone. Right hip pain for 4 weeks. Large mass found in left kidney. M ultiple masses found in lungs. DOSE: 30.1 mCi Tc99m MDP IV MEDICAL HISTORY : Diabetes mellitus type 2. Hypertension. Chronic obstructive pulmonary disease. SURGICAL HISTORY : None. ENCOUNTER: Initial ACUITY: 1 month PAIN SCALE: 6/10 LOCATION: Right Hip. TECHNIQUE: Three hours post intravenous administration of radiotracer, whole body bone scan imaging was performe d. FINDINGS: There is some mild uptake seen along the inferior margin of the right iliac lytic lesion, only seen o n the frontal view. There is focal mild increased uptake seen in the anterior right 7th rib; a small sclerotic area and a soft tissue opacity seen on CT in this same area. Otherwise, whole-body scan i s negative for focal areas of increased or decreased uptake. CONCLUSION: 1. Small focal area of increased uptake anterior right 7th rib with both a sclerotic and soft tissue nodule seen in the same area on recent CT scan. 2. Mild uptake along the inferior anterior margin of the osteolytic lesion in the right iliac bone. 3. No other osteoblastic lesions. Please note that metastatic lesions from renal cell carcinoma freq uently do not demonstrate increased diphosphonate uptake. Lucas Tyler MD on January 07, 2018 at 14:46 Board Certified Radiologist. This report was verified electronically.
[2018-01-07 16:00] VITALS: BP 111/55; PULSE 88; RESP 18; TEMP 98.2; O2SAT 92
[2018-01-07 18:30] LABS: INTERNATIONAL NORMALIZED RATIO 1.1 RATIO
[2018-01-07 19:29] VITALS: BP 137/73; PULSE 91; RESP 18; TEMP 98.9; O2SAT 98
[2018-01-07] MEDS: ZOLPIDEM TARTRATE 5 MG TAB PO PRN (20:53)
[2018-01-07 23:47] VITALS: BP 134/63; PULSE 88; RESP 18; TEMP 97.5; O2SAT 95
[2018-01-08] VITALS (9 sets, daily range): BP systolic 108–143; BP diastolic 56–73; PULSE 88–103; RESP 16–19; TEMP 97.3–98.6; O2SAT 91–96
[2018-01-08 03:25] LABS: PSA, FREE 0.2 ng/mL
[2018-01-08 06:24] LABS: AUTOMATED NEUTROPHIL # 3.7 TH/MM3 (1.8-7.7); BASOPHIL % 0.9 % (0.0-2.0); EOSINOPHIL # 0.2 TH/MM3 (0-0.4); EOSINOPHIL % 3.7 % (0.0-4.0); HEMATOCRIT 29.8 % (39.0-51.0); HEMOGLOBIN 9.4 GM/DL (13.0-17.0); LYMPH % 14.3 % (9.0-44.0); LYMPHOCYTE # 0.7 TH/MM3 (1.0-4.8); MEAN CELL VOLUME 69.5 FL (80.0-100.0); MEAN CORPUSCULAR HEMOGLOBIN 21.9 PG (27.0-34.0); MEAN CORPUSCULAR HGB CONC 31.4 % (32.0-36.0); MEAN PLATELET VOLUME 7.8 FL (7.0-11.0); MONO % 9.5 % (0.0-8.0); MONOCYTE # 0.5 TH/MM3 (0-0.9); NEUT % 71.6 % (16.0-70.0); PLATELET COUNT 380 TH/MM3 (150-450); RED BLOOD COUNT 4.29 MIL/MM3 (4.50-5.90); RED CELL DISTRIBUTION WIDTH 18.7 % (11.6-17.2); WHITE BLOOD COUNT 5.2 TH/MM3 (4.0-11.0)
[2018-01-08 06:37] LABS: INTERNATIONAL NORMALIZED RATIO 1.1 RATIO; PROTHROMBIN TIME - PATIENT 10.9 SEC (9.8-11.6)
[2018-01-08 06:42] LABS: ALBUMIN 2.5 GM/DL (3.4-5.0); BICARBONATE 29.7 MEQ/L (21.0-32.0); BLOOD UREA NITROGEN 18 MG/DL (7-18); CALCIUM 10.2 MG/DL (8.5-10.1); CHLORIDE 103 MEQ/L (98-107); CREATININE 1.31 MG/DL (0.60-1.30); GLOMERULAR FILTRATION RATE 56 ML/MIN (>89); GLUCOSE,RANDOM 161 MG/DL (74-106); SODIUM (NA) 140 MEQ/L (136-145)
[2018-01-08 06:58] LABS: ALKALINE PHOSPHATASE 139 U/L (45-117); ALT (GPT) 21 U/L (12-78); AST (GOT) 11 U/L (15-37); TOTAL BILIRUBIN ADULT 0.4 MG/DL (0.2-1.0); TOTAL PROTEIN 7.6 GM/DL (6.4-8.2)
[2018-01-08] MEDS ORDERED: MIDAZOLAM HCL 5 MG/5 ML VIAL ONE (07:48)
[2018-01-08] MEDS ORDERED: fentaNYL CITRATE 250 MCG/5 ML AMP ONE (07:48)
[2018-01-08] MEDS: ACETAMINOPHEN/HYDROcodone 325 MG/5 MG TAB PO PRN ×3 (07:50→19:53)
[2018-01-08] MEDS: SODIUM CHLORIDE 0.9% FLUSH 10 ML FLUSH IV FLUSH SCH ×2 (07:55→19:54)
[2018-01-08] MEDS: INSULIN ASPART SUPPLEMENTAL SCALE SQ SCH ×4 (08:00→21:58)
[2018-01-08] MEDS: MULTIVITAMIN TAB PO SCH (09:00)
[2018-01-08] MEDS: LOSARTAN 25 MG TAB PO SCH (09:00)
[2018-01-08] MEDS: cloNIDine HCL 0.1 MG TAB PO SCH (09:00)
[2018-01-08] MEDS: DOCUSATE SODIUM 50 MG/SENNA 8.6 MG TAB PO SCH ×2 (09:00→19:53)
--- NOTE | 2018-01-08 09:02 | PD.RAD ---
Post CT Procedure Prog Note Pre Procedure Diagnosis: (1) Bone mass (2) Fracture of right iliac crest Post Procedure Diagnosis: (1) Bone mass Procedure Date: January 08, 2018 Supervising Radiologist: Jose Roberto Valdivia Estimated blood loss: 5cc Anesthesia: Local, Conscious Sedation Plan of Activity Patient to Unit: ROPU Patient Condition: Good See PACS Report for procedural detail/treatment Biopsy Imaging Guidance: CT Side: Right Biopsy Procedure: Bone, Pelvic Mass Site: right iliac bone soft tissue mass. Specimen: Core Biopsy Plan to ROPU then to floor. Jose Roberto Valdivia MD January 08, 2018 09:02
--- NOTE | 2018-01-08 09:16 | RADRPT ---
EXAM DATE/TIME: 01/08/2018 08:38 [facility] COMPARISON: BONE SCAN (WHOLE BODY), January 07, 2018, 13:13. INDICATIONS : Right iliac lesion. SEDATION TIME: 30 minutes BIOPSY SITE: Right MEDICATION(S): 1.) 2 mg midazolam (Versed) IV 2.) 100 mcg fentanyl (Sublimaze) IV DEVICE(S): 1.) 18 gauge BARD MEDICAL HISTORY : Hypertension. Chronic obstructive pulmonary disease. Cardiovascular disease. Bryant's esophagus, selene betic SURGICAL HISTORY : gastric surgery ENCOUNTER: Initial ACUITY: 1 day PAIN SCORE: 0/10 LOCATION: Right A total of four core specimen(s) were obtained and sent to the laboratory for pathologic evaluation. PROCEDURE: 1. CT guided bone deep biopsy. 2. Conscious sedation with continuous EKG and oximetry monitoring. 3. EKG and oximetry remained stable throughout the procedure. Prior to the procedure informed consent was obtained. Any appropriate prior imaging studies were rev iewed. Using automated exposure control and adjustment of the mA and/or kV according to patient size, radiat ion dose was kept as low as reasonably achievable to obtain optimal diagnostic quality images. DICOM format image data is available electronically for review and comparison. The site was prepped in a sterile fashion. Full sterile technique was used, including cap, mask, pee rile gloves and gown and a large sterile sheet. Hand hygiene and 2% chlorhexidine and/or betadine/al cohol prep was utilized per protocol for cutaneous antisepsis. The skin and subcutaneous tissues wer e infiltrated with local anesthetic solution. With CT guidance of a soft tissue mass destroying the anterior right iliac bone was localized. Biopsy was performed using the prescribed needle as above. Adequate hemostasis was obtained with compressi on at the puncture site. Follow-up CT scan reveals no hemorrhage or acute abnormality. The patient tolerated the procedure well and there were no complications. The patient was returned to the Radiology Outpatient Unit in stable condition. CONCLUSION: Uncomplicated CT guided biopsy soft tissue mass destroying the right iliac bone. Jose Roberto Valdivia MD on January 08, 2018 at 9:13 Board Certified Radiologist. This report was verified electronically.
[2018-01-08] MEDS ORDERED: LIDOCAINE HCL 1% 10 ML VIAL OTHER ONE (09:18)
--- NOTE | 2018-01-08 18:02 | HHI.PR ---
Subjective Remarks Patient is status post biopsy today. Bone scan results manage CT findings. Patient is continuing to work with PT but not yet very functional in regards to his ambulation. Objective Vital Signs Date Time Temp Pulse Resp B/P (MAP) Pulse Ox O2 Delivery O2 Flow Rate FiO2 01/08/18 16:00 98.5 103 19 143/72 (95) 95 01/08/18 10:50 98.6 88 17 136/63 (87) 95 01/08/18 10:20 97.3 90 17 108/56 (73) 94 01/08/18 09:50 95 16 128/69 (88) 94 01/08/18 09:20 93 18 118/70 (86) 94 01/08/18 09:05 98.3 101 16 117/73 (88) 91 01/08/18 08:00 98.3 95 19 137/64 (88) 96 01/08/18 03:19 97.7 93 18 126/69 (88) 96 01/07/18 23:47 97.5 88 18 134/63 (86) 95 01/07/18 19:29 98.9 91 18 137/73 (94) 98 I/O 01/07/18 01/07/18 01/07/18 01/08/18 01/08/18 01/08/18 07:00 15:00 23:00 07:00 15:00 23:00 Intake Total 600 ml 0 ml 500 ml Output Total 400 ml Balance 600 ml -400 ml 500 ml Intake Oral 600 ml 0 ml 500 ml Output Urine Total 400 ml # Voids 6 1 5 # Bowel Movements 0 Result Diagram: 01/08/18 0455 01/08/18 0455 Objective Remarks GENERAL: NAD, A&Ox3 HEAD: Normocephalic. NECK: Supple, trachea midline. No lymphadenopathy. EYES: No scleral icterus. No injection or drainage. CARDIOVASCULAR: Regular rate and rhythm without murmurs, gallops, or rubs. RESPIRATORY: Breath sounds equal bilaterally. No accessory muscle use. GASTROINTESTINAL: Abdomen soft, non-tender, nondistended. MUSCULOSKELETAL: No cyanosis, or edema. SKIN: Warm and dry. NEURO: No focal neurological deficitis. A/P Problem List: (1) Fracture of right iliac crest ICD Code: S32.301A - Unspecified fracture of right ilium, initial encounter for closed fracture (2) Pathologic fracture ICD Code: M84.40XA - Pathological fracture, unspecified site, initial encounter for fracture (3) Lung mass ICD Code: R91.8 - Other nonspecific abnormal finding of lung field (4) Renal mass ICD Code: N28.89 - Other specified disorders of kidney and ureter Assessment and Plan 57-year-old male with history of hypertension, diabetes mellitus and history of COPD presented with a pathologic fracture of the right hip Biopsy completed today. Continue to work with PT. Plan to discharge when patient is functional in regards to ambulating with a walker. Right hip pathologic fracture No surgical intervention needed With her following Continue pain control Continue physical therapy Right iliac crest mass Right renal mass Lung masses bilaterally Retroperitoneal lymphadenopathy Suspected metastatic cancer Further workup needed Bone scan completed and shows findings seen on CT Biopsy completed, outpatient follow-up for this Oncology following Hypoalbuminemia Likely related to cancer Follow Diabetes mellitus Insulin sliding scale Diabetic diet Follow blood sugars Hypertension Continue: clonidine, losartan, DVT prophylaxis Lovenox Roge Reyes MD January 08, 2018 18:02
--- NOTE | 2018-01-08 23:59 | PD.ONC.PN ---
Subjective Subjective Remarks Resting comfortably in beside chair. Objective Data Date Time Temp Pulse Resp B/P (MAP) Pulse Ox O2 Delivery O2 Flow Rate FiO2 01/08/18 20:13 98.1 93 19 124/56 (78) 95 01/08/18 16:00 98.5 103 19 143/72 (95) 95 01/08/18 10:50 98.6 88 17 136/63 (87) 95 01/08/18 10:20 97.3 90 17 108/56 (73) 94 01/08/18 09:50 95 16 128/69 (88) 94 01/08/18 09:20 93 18 118/70 (86) 94 01/08/18 09:05 98.3 101 16 117/73 (88) 91 01/08/18 08:00 98.3 95 19 137/64 (88) 96 01/08/18 03:19 97.7 93 18 126/69 (88) 96 Result Diagram: 01/08/18 0455 01/08/18 0455 Laboratory Results Laboratory Tests Test 01/08/18 04:55 White Blood Count 5.2 TH/MM3 Red Blood Count 4.29 MIL/MM3 Hemoglobin 9.4 GM/DL Hematocrit 29.8 % Mean Corpuscular Volume 69.5 FL Mean Corpuscular Hemoglobin 21.9 PG Mean Corpuscular Hemoglobin Concent 31.4 % Red Cell Distribution Width 18.7 % Platelet Count 380 TH/MM3 Mean Platelet Volume 7.8 FL Neutrophils (%) (Auto) 71.6 % Lymphocytes (%) (Auto) 14.3 % Monocytes (%) (Auto) 9.5 % Eosinophils (%) (Auto) 3.7 % Basophils (%) (Auto) 0.9 % Neutrophils # (Auto) 3.7 TH/MM3 Lymphocytes # (Auto) 0.7 TH/MM3 Monocytes # (Auto) 0.5 TH/MM3 Eosinophils # (Auto) 0.2 TH/MM3 Basophils # (Auto) 0.0 TH/MM3 CBC Comment DIFF FINAL Differential Comment Prothrombin Time 10.9 SEC Prothromb Time International Ratio 1.1 RATIO Activated Partial Thromboplast Time 27.3 SEC Blood Urea Nitrogen 18 MG/DL Creatinine 1.31 MG/DL Random Glucose 161 MG/DL Total Protein 7.6 GM/DL Albumin 2.5 GM/DL Calcium Level 10.2 MG/DL Alkaline Phosphatase 139 U/L Aspartate Amino Transf (AST/SGOT) 11 U/L Alanine Aminotransferase (ALT/SGPT) 21 U/L Total Bilirubin 0.4 MG/DL Sodium Level 140 MEQ/L Potassium Level 4.0 MEQ/L Chloride Level 103 MEQ/L Carbon Dioxide Level 29.7 MEQ/L Anion Gap 7 MEQ/L Estimat Glomerular Filtration Rate 56 ML/MIN Imaging Studies Last 24 hours Impressions Bone Biopsy CT 01/08/18 0000 Signed Impressions: Service Date/Time: Monday, January 08, 2018 08:38 - CONCLUSION: Uncomplicated CT guided biopsy soft tissue mass destroying the right iliac bone. Jose Roberto Valdivia MD Administered Medications Medications (Trade) Dose Ordered Sig/Yadi Route PRN Reason Start Time Stop Time Status Last Admin Dose Admin Insulin Aspart (NovoLOG SUPPLEMENTAL SCALE) 1 ACHS SLIDING SCALE SQ 01/06/18 08:00 01/08/18 21:58 Sodium Chloride (NS Flush) 2 ml BID IV FLUSH 01/06/18 09:00 01/08/18 19:54 Acetaminophen/ Hydrocodone Bitart (Ajo 5-325 Mg) 1 tab Q4H PRN PO PAIN SCALE 3 TO 5 01/06/18 02:00 01/08/18 19:53 Morphine Sulfate (Morphine Inj) 2 mg Q3H PRN IV PUSH Pain 6-10 01/06/18 02:00 01/06/18 06:35 Senna/Docusate Sodium (Connie-Colace) 1 tab BID PO 01/06/18 09:00 01/08/18 19:53 Clonidine (Catapres) 0.1 mg DAILY PO 01/06/18 09:00 01/07/18 08:07 Losartan Potassium (Cozaar) 25 mg DAILY PO 01/06/18 09:00 01/07/18 08:07 Multivitamins (Theragran) 1 tab DAILY PO 01/06/18 09:00 01/07/18 08:07 Enoxaparin Sodium (Lovenox Inj) 40 mg Q24H SQ 01/06/18 12:00 Future Hold 01/07/18 13:00 Zolpidem Tartrate (Ambien) 5 mg HS PRN PO SLEEP 01/07/18 15:00 01/07/18 20:53 Objective Remarks GENERAL: Well-nourished, well-developed patient. SKIN: Warm and dry. HEAD: Normocephalic. EYES: No scleral icterus. No injection or drainage. NECK: Supple, trachea midline. No JVD or lymphadenopathy. LYMPHATIC: No adenopathy. CARDIOVASCULAR: Regular rate and rhythm without murmurs. RESPIRATORY: Breath sounds equal bilaterally. No accessory muscle use. GASTROINTESTINAL: Abdomen soft, non-tender, nondistended. EXTREMITIES: No cyanosis, or edema. MUSCULOSKELETAL: Adequate muscle tone. NEUROLOGICAL: No obvious focal deficit. Awake, alert, and oriented x3. PSYCHIATRIC: Appropriate mood and affect; insight and judgment normal. Assessment/Plan Assessment 57y/o male admitted with worsening right hip pain, found to have pathologic fracture, oncology consulted for possible malignancy. history of hypertension, type 2 diabetes mellitus, COPD, GERD with Bryant esophagus Thyroid nodule, status post biopsy, which was benign. Plan 1. Right iliac wing lesion associated with a pathologic fracture: --CT C/A/P: multiple lung masses, large left renal mass, enlarged lymph node in left retroperitoneum. --bone scan pending. --s/p biopsy with results pending. Elvira Badillo MD January 08, 2018 23:59
[2018-01-09 00:40] VITALS: BP 123/61; PULSE 89; RESP 18; TEMP 97.9; O2SAT 96
[2018-01-09] MEDS: ACETAMINOPHEN/HYDROcodone 325 MG/5 MG TAB PO PRN ×2 (01:51→08:41)
[2018-01-09 07:03] LABS: AUTOMATED NEUTROPHIL # 3.9 TH/MM3 (1.8-7.7); BASOPHIL # 0.1 TH/MM3 (0-0.2); EOSINOPHIL # 0.2 TH/MM3 (0-0.4); EOSINOPHIL % 2.8 % (0.0-4.0); HEMATOCRIT 28.9 % (39.0-51.0); HEMOGLOBIN 8.9 GM/DL (13.0-17.0); LYMPH % 14.7 % (9.0-44.0); LYMPHOCYTE # 0.8 TH/MM3 (1.0-4.8); MEAN CELL VOLUME 69.3 FL (80.0-100.0); MEAN CORPUSCULAR HEMOGLOBIN 21.4 PG (27.0-34.0); MEAN CORPUSCULAR HGB CONC 30.9 % (32.0-36.0); MEAN PLATELET VOLUME 7.7 FL (7.0-11.0); MONO % 10.8 % (0.0-8.0); MONOCYTE # 0.6 TH/MM3 (0-0.9); NEUT % 70.7 % (16.0-70.0); PLATELET COUNT 417 TH/MM3 (150-450); RED BLOOD COUNT 4.17 MIL/MM3 (4.50-5.90); RED CELL DISTRIBUTION WIDTH 18.5 % (11.6-17.2); WHITE BLOOD COUNT 5.6 TH/MM3 (4.0-11.0)
[2018-01-09 07:25] LABS: ALBUMIN 2.3 GM/DL (3.4-5.0); AST (GOT) 10 U/L (15-37); BICARBONATE 27.6 MEQ/L (21.0-32.0); BLOOD UREA NITROGEN 22 MG/DL (7-18); CHLORIDE 102 MEQ/L (98-107); CREATININE 1.43 MG/DL (0.60-1.30); GLOMERULAR FILTRATION RATE 51 ML/MIN (>89); GLUCOSE,RANDOM 152 MG/DL (74-106); SODIUM (NA) 138 MEQ/L (136-145)
[2018-01-09 07:26] LABS: ALT (GPT) 20 U/L (12-78)
[2018-01-09 07:29] LABS: ALKALINE PHOSPHATASE 136 U/L (45-117); TOTAL BILIRUBIN ADULT 0.4 MG/DL (0.2-1.0); TOTAL PROTEIN 7.4 GM/DL (6.4-8.2)
[2018-01-09 08:00] VITALS: BP 126/64; PULSE 94; RESP 16; TEMP 98.3; O2SAT 96
[2018-01-09] MEDS: INSULIN ASPART SUPPLEMENTAL SCALE SQ SCH ×4 (08:00→21:26)
[2018-01-09] MEDS: LOSARTAN 25 MG TAB PO SCH (08:40)
[2018-01-09] MEDS: MULTIVITAMIN TAB PO SCH (08:40)
[2018-01-09] MEDS: cloNIDine HCL 0.1 MG TAB PO SCH (08:40)
[2018-01-09] MEDS: DOCUSATE SODIUM 50 MG/SENNA 8.6 MG TAB PO SCH ×2 (08:41→21:25)
[2018-01-09] MEDS: SODIUM CHLORIDE 0.9% FLUSH 10 ML FLUSH IV FLUSH SCH ×2 (08:47→21:26)
[2018-01-09] MEDS ORDERED: MORPHINE SULFATE 4 MG/ML INJ IV PUSH PRN (10:15)
--- NOTE | 2018-01-09 10:17 | HHI.PR ---
Subjective Remarks Follow up bone biopsy. Patient states he having throbbing pain in the left hip where the bone biopsy was, does not think the pain medication is helping much. He is complaining of dysuria, frequency and incontinence. He denies any chest pain. Objective Vitals Vital Signs Date Time Temp Pulse Resp B/P (MAP) Pulse Ox O2 Delivery O2 Flow Rate FiO2 01/09/18 08:00 98.3 94 16 126/64 (84) 96 01/09/18 00:40 97.9 89 18 123/61 (81) 96 01/08/18 20:13 98.1 93 19 124/56 (78) 95 01/08/18 16:00 98.5 103 19 143/72 (95) 95 01/08/18 10:50 98.6 88 17 136/63 (87) 95 01/08/18 10:20 97.3 90 17 108/56 (73) 94 I/O 01/08/18 01/08/18 01/08/18 01/09/18 01/09/18 01/09/18 07:00 15:00 23:00 07:00 15:00 23:00 Intake Total 0 ml 480 ml 480 ml Output Total 400 ml Balance -400 ml 480 ml 480 ml Intake Oral 0 ml 480 ml 480 ml Output Urine Total 400 ml # Voids 1 5 5 # Bowel Movements 0 0 Result Diagram: 01/09/18 0443 01/09/18 0443 Objective Remarks General: Patient feels week and tired. SKIN: Warm and dry. CARDIOVASCULAR: Regular rate and rhythm. RESPIRATORY: No accessory muscle use. Clear to auscultation. Breath sounds equal bilaterally. MUSCULOSKELETAL: Right hip pain. NEUROLOGICAL: Awake and alert. No obvious cranial nerve deficits. Motor grossly within normal limits. Five out of 5 muscle strength in the arms and legs. Normal speech. Urinary Catheter: No Vascular Central Line Catheter: No A/P Assessment and Plan 57-year-old male with history of hypertension, diabetes mellitus and history of COPD presented with a pathologic fracture of the right hip Biopsy completed 01/08. Continue to work with PT. Plan to discharge when patient is functional in regards to ambulating with a walker. Right hip pathologic fracture, No surgical intervention needed -Ortho following -01/09 Changed pain control to Percocet PO with morphine IV breakthrough -Continue physical therapy daily, patient does not want SNF would rather have home health Right iliac crest mass Right renal mass Lung masses bilaterally Retroperitoneal lymphadenopathy Suspected metastatic cancer -Further workup needed -Bone scan completed and shows findings seen on CT -Biopsy completed, outpatient follow-up for this -Oncology following 5/2 Dysuria, frequency, possible UTI, may be related to renal mass -UA ordered, resulted and showed large leukocyte esterase and positive nitrates, Rocephin IV ordered, urine culture pending -Kidney ultrasound ordered, reviewed and shows no hydronephrosis Hypoalbuminemia -Likely related to cancer -Cont to follow Follow Diabetes mellitus - Accu checks with Insulin sliding scale -Cont Diabetic diet Hypertension, stable -Continue home clonidine, losartan, DVT prophylaxis: LoveViktoria Petersen January 09, 2018 10:17
--- NOTE | 2018-01-09 11:49 | RADRPT ---
EXAM DATE/TIME: 01/09/2018 10:40 [facility] COMPARISON: CT ABDOMEN & PELVIS W CONTRAST, January 06, 2018, 14:17. INDICATIONS : Increased BUN/Creatinine. MEDICAL HISTORY : Hypertension. Chronic obstructive pulmonary disease. Bryant's esophagus. diabetes. hiatal hernia. benign heart murmur. SURGICAL HISTORY : Gastric surgery. Coccyx/pilonidal cyst removal. ENCOUNTER: Initial ACUITY: 1 day PAIN SCORE: 6/10 LOCATION: Bilateral flank MEASUREMENTS: RIGHT KIDNEY: 13.8 x 6.0 x 5.8 cm LEFT KIDNEY: 12.9 x 4.8 x 4.5 cm FINDINGS: RIGHT KIDNEY: Renal cortex is normal in thickness and echotexture. No hydronephrosis, stone, or mass. The there i s a a small cyst measuring 1.2 cm along the mid pole. LEFT KIDNEY: Large solid mass destroying the upper pole and midpole of the right kidney measuring at least 14 cm x 7.8 cm. This correlates with the CT scan. No definite hydronephrosis. BLADDER: Within normal limits given the degree of distension. CONCLUSION: 1. Large abnormal left-sided kidney mass. This is most likely renal cell carcinoma. 2. Small right renal cyst. 3. No evidence of hydronephrosis. Shan Houston MD on January 09, 2018 at 11:45 Board Certified Radiologist. This report was verified electronically.
[2018-01-09 11:57] LABS: BACTERIA, URINE MANY /hpf; BILIRUBIN, URINE NEG (NEG); BLOOD, URINE SMALL (NEG); GLUCOSE,URINE 150 mg/dL (NEG); KETONE, URINE TRACE mg/dL (NEG); NITRITE,URINE POS (NEG); PH, URINE 5.5 (5.0-8.5); SQUAMOUS EPITHELIAL CELL URINE 1 /hpf (0-5); URINE COLOR YELLOW (YELLW/STRAW); URINE LEUKOCYTE ESTERASE LARGE (NEG)
[2018-01-09 12:00] VITALS: BP 127/66; PULSE 85; RESP 16; TEMP 97.8; O2SAT 95
[2018-01-09] MEDS: oxyCODONE/ACETAMINOPHEN 10 MG/325 MG TAB PO PRN ×3 (13:02→21:25)
[2018-01-09 16:00] VITALS: BP 126/60; PULSE 86; RESP 16; TEMP 97.9; O2SAT 97
[2018-01-09] MEDS: cefTRIAXone INJ 1,000 MG in SODIUM CHLORIDE 0.9% INJ 100 ML IV SCH (16:41)
[2018-01-09 20:00] VITALS: BP 113/56; PULSE 87; RESP 18; TEMP 98.1; O2SAT 95
[2018-01-09] MEDS: ZOLPIDEM TARTRATE 5 MG TAB PO PRN (21:25)
[2018-01-10 00:01] VITALS: BP 101/54; PULSE 89; RESP 18; TEMP 97.5; O2SAT 95
[2018-01-10 08:00] VITALS: BP 124/58; PULSE 88; RESP 18; TEMP 98; O2SAT 95
[2018-01-10] MEDS: INSULIN ASPART SUPPLEMENTAL SCALE SQ SCH ×4 (08:00→22:10)
[2018-01-10 08:36] LABS: AUTOMATED NEUTROPHIL # 3.9 TH/MM3 (1.8-7.7); BASOPHIL % 0.8 % (0.0-2.0); EOSINOPHIL # 0.2 TH/MM3 (0-0.4); EOSINOPHIL % 3.9 % (0.0-4.0); HEMATOCRIT 28.6 % (39.0-51.0); LYMPH % 13.6 % (9.0-44.0); LYMPHOCYTE # 0.7 TH/MM3 (1.0-4.8); MEAN CELL VOLUME 69.1 FL (80.0-100.0); MEAN CORPUSCULAR HEMOGLOBIN 21.7 PG (27.0-34.0); MEAN CORPUSCULAR HGB CONC 31.4 % (32.0-36.0); MEAN PLATELET VOLUME 7.6 FL (7.0-11.0); MONO % 10.7 % (0.0-8.0); MONOCYTE # 0.6 TH/MM3 (0-0.9); PLATELET COUNT 393 TH/MM3 (150-450); RED BLOOD COUNT 4.13 MIL/MM3 (4.50-5.90); RED CELL DISTRIBUTION WIDTH 18.8 % (11.6-17.2); WHITE BLOOD COUNT 5.5 TH/MM3 (4.0-11.0)
[2018-01-10] MEDS ORDERED: WALKER WHEELS/F1 MIS (08:37)
--- NOTE | 2018-01-10 08:38 | HHI.FF ---
Face to Face Verification Diagnosis: (1) Fracture of right iliac wing (2) Bone mass (3) Lung mass Physical Therapy Order: Evaluate and Treat, Improve ambulation, Strength and gait training Home Health Nursing Order: Signs/symptoms of disease process Medication education-adverse effect Nursing assessment with vital signs I have seen patient Brielle Gillette on 01/10/18. My clinical findings support the need for the requested home health care services because: Ltd mobility - disease progression Deconditioned w/ increased weakness Limited ability to care for self High risk of falls I certify that my clinical findings support that this patient is homebound because: Post-op weakness Unsteady gait/balance Unsafe to leave home unassisted Unable to use public transportation Viktoria Salvador January 10, 2018 08:38
--- NOTE | 2018-01-10 09:01 | PD.ONC.PN ---
Subjective Subjective Remarks Resting comfortably in bed in no distress. Discussed results of biopsy that he has metastatic clear cell renal cell carcinoma. He reports that he slept well last; however he is still having difficulty with pain control. Objective Data Date Time Temp Pulse Resp B/P (MAP) Pulse Ox O2 Delivery O2 Flow Rate FiO2 01/10/18 07:46 Room Air 01/10/18 00:01 97.5 89 18 101/54 (70) 95 01/09/18 21:30 Room Air 01/09/18 20:00 98.1 87 18 113/56 (75) 95 01/09/18 16:00 97.9 86 16 126/60 (82) 97 01/09/18 12:00 97.8 85 16 127/66 (86) 95 Result Diagram: 01/10/18 0735 01/09/18 0443 Laboratory Results Laboratory Tests Test 01/09/18 11:10 01/10/18 07:35 Urine Color YELLOW Urine Turbidity HAZY Urine pH 5.5 Urine Specific Sunburst 1.018 Urine Protein 30 mg/dL Urine Glucose (UA) 150 mg/dL Urine Ketones TRACE mg/dL Urine Occult Blood SMALL Urine Nitrite POS Urine Bilirubin NEG Urine Urobilinogen LESS THAN 2.0 MG/DL Urine Leukocyte Esterase LARGE Urine RBC 9 /hpf Urine WBC 47 /hpf Urine Squamous Epithelial Cells 1 /hpf Urine Bacteria MANY /hpf Microscopic Urinalysis Comment CULTURE INDICATED White Blood Count 5.5 TH/MM3 Red Blood Count 4.13 MIL/MM3 Hemoglobin 9.0 GM/DL Hematocrit 28.6 % Mean Corpuscular Volume 69.1 FL Mean Corpuscular Hemoglobin 21.7 PG Mean Corpuscular Hemoglobin Concent 31.4 % Red Cell Distribution Width 18.8 % Platelet Count 393 TH/MM3 Mean Platelet Volume 7.6 FL Neutrophils (%) (Auto) 71.0 % Lymphocytes (%) (Auto) 13.6 % Monocytes (%) (Auto) 10.7 % Eosinophils (%) (Auto) 3.9 % Basophils (%) (Auto) 0.8 % Neutrophils # (Auto) 3.9 TH/MM3 Lymphocytes # (Auto) 0.7 TH/MM3 Monocytes # (Auto) 0.6 TH/MM3 Eosinophils # (Auto) 0.2 TH/MM3 Basophils # (Auto) 0.0 TH/MM3 CBC Comment DIFF FINAL Differential Comment Culture Results Microbiology Date/Time Source Procedure Growth Status 01/09/18 11:10 Urine Clean Catch Urine Culture Pending Received Administered Medications Medications (Trade) Dose Ordered Sig/Yadi Route PRN Reason Start Time Stop Time Status Last Admin Dose Admin Insulin Aspart (NovoLOG SUPPLEMENTAL SCALE) 1 ACHS SLIDING SCALE SQ 01/06/18 08:00 01/09/18 21:26 Sodium Chloride (NS Flush) 2 ml BID IV FLUSH 01/06/18 09:00 01/09/18 21:26 Senna/Docusate Sodium (Connie-Colace) 1 tab BID PO 01/06/18 09:00 01/09/18 21:25 Clonidine (Catapres) 0.1 mg DAILY PO 01/06/18 09:00 01/09/18 08:40 Losartan Potassium (Cozaar) 25 mg DAILY PO 01/06/18 09:00 01/09/18 08:40 Multivitamins (Theragran) 1 tab DAILY PO 01/06/18 09:00 01/09/18 08:40 Enoxaparin Sodium (Lovenox Inj) 40 mg Q24H SQ 01/06/18 12:00 Future Hold 01/07/18 13:00 Zolpidem Tartrate (Ambien) 5 mg HS PRN PO SLEEP 01/07/18 15:00 01/09/18 21:25 Oxycodone/ Acetaminophen (Percocet 10-325 Mg) 1 tab Q4H PRN PO pain 6-10 01/09/18 10:15 01/09/18 21:25 Ceftriaxone Sodium 1000 mg/ Sodium Chloride 100 ml @ 200 mls/hr Q24H IV 01/09/18 16:00 01/09/18 16:41 Objective Remarks GENERAL: Well-nourished, well-developed patient. HEAD: Normocephalic. EYES: No scleral icterus. No injection or drainage. LYMPHATIC: No adenopathy. RESPIRATORY: No accessory muscle use. GASTROINTESTINAL: Abdomen protuberant EXTREMITIES: No edema. MUSCULOSKELETAL: Adequate muscle tone. NEUROLOGICAL: No obvious focal deficit. Awake, alert, and oriented x3. PSYCHIATRIC: Appropriate mood and affect; insight and judgment normal. Assessment/Plan Assessment 57y/o male admitted with worsening right hip pain, found to have pathologic fracture, oncology consulted for possible malignancy. history of hypertension, type 2 diabetes mellitus, COPD, GERD with Bryant esophagus Thyroid nodule, status post biopsy, which was benign. Plan 1. Metastatic clear cell renal cell carcinoma --CT C/A/P: multiple lung masses, large left renal mass, enlarged lymph node in left retroperitoneum. --bone biopsy returned as clear cell renal cell carcinoma. Discussed treatment of stage 4 renal cell carcinoma. Discussed treatment with nivolumab and ipilimumab per [facility] 12/2017. Patient will discuss with . --Will place consult for urology for consideration of resection of primary. This has been shown to have improved outcomes in patient treated with immune therapy. This can also help to reduce symptoms from primary. 2. Right iliac wing lesion associated with a pathologic fracture: ortho team treating with non operative management. Pain control per primary team 3. anemia: will check vitamin B12, folate, iron profile, ferritin. Elvira Badillo MD January 10, 2018 09:01
[2018-01-10] MEDS: cloNIDine HCL 0.1 MG TAB PO SCH (09:27)
[2018-01-10] MEDS: MULTIVITAMIN TAB PO SCH (09:27)
[2018-01-10] MEDS: DOCUSATE SODIUM 50 MG/SENNA 8.6 MG TAB PO SCH ×2 (09:27→19:16)
[2018-01-10] MEDS: LOSARTAN 25 MG TAB PO SCH (09:27)
[2018-01-10] MEDS: SODIUM CHLORIDE 0.9% FLUSH 10 ML FLUSH IV FLUSH SCH ×2 (09:29→21:00)
[2018-01-10] MEDS: oxyCODONE/ACETAMINOPHEN 5 MG/325 MG TAB PO PRN ×3 (09:29→23:54)
--- NOTE | 2018-01-10 11:05 | PD.ORT.PN ---
Subjective Subjective Remarks Sitting in chair. Moderate pain to right hip Objective Vitals Vital Signs Date Time Temp Pulse Resp B/P (MAP) Pulse Ox O2 Delivery O2 Flow Rate FiO2 01/10/18 08:00 98.0 88 18 124/58 (80) 95 01/10/18 07:46 Room Air 01/10/18 00:01 97.5 89 18 101/54 (70) 95 01/09/18 21:30 Room Air 01/09/18 20:00 98.1 87 18 113/56 (75) 95 01/09/18 16:00 97.9 86 16 126/60 (82) 97 01/09/18 12:00 97.8 85 16 127/66 (86) 95 I/O 01/09/18 01/09/18 01/09/18 01/10/18 01/10/18 01/10/18 07:00 15:00 23:00 07:00 15:00 23:00 Intake Total 480 ml 600 ml 100 ml Balance 480 ml 600 ml 100 ml Intake Oral 480 ml 600 ml IV Total 100 ml # Voids 5 3 1 # Bowel Movements 0 0 Result Diagram: 01/10/18 0735 01/09/18 0443 Imaging Last [address] 01/06/18 0000 Signed Impressions: Service Date/Time: Saturday, January 06, 2018 14:17 - CONCLUSION: 1. Numerous lung nodules consistent with widespread metastatic disease. 2. Large left renal mass thought to represent a renal cell carcinoma. 3. Moderate hiatal hernia. 4. 2.7 cm right thyroid nodule. Jose Roberto Rico MD Abdomen/Pelvis CT 01/06/18 0000 Signed Impressions: Service Date/Time: Saturday, January 06, 2018 14:17 - CONCLUSION: 1. Large left renal mass will certainly representing a large left renal cell carcinoma. There does appear to be enlarged lymph node seen in the left retroperitoneum. 2. Numerous masses in the lung bases likely related to metastatic disease. 3. Pathological fracture through a metastatic lesion in the right iliac bone. 4. Venous collaterals in the left lower abdomen. There is questionable decreased density in the left common iliac vein concerning for possible thrombus. 5. Hepatic steatosis. 6. Moderate hiatal hernia. Jose Roberto Rioc MD Lower Extremity CT 01/05/18 0000 Signed Impressions: Service Date/Time: Saturday, January 06, 2018 00:47 - CONCLUSION: 1. No hip fracture seen. 2. Pathologic fracture of the right iliac wing with associated 4.9 cm lytic lesion involving the lateral iliac wing and with associated adjacent soft tissue swelling. Differential considerations for the lytic lesion include a metastasis, giant cell tumor, and brown tumor. Lucas Tyler MD Objective Remarks Examination of the right lower extremity reveals moderate tenderness to palpation over the iliac wing. He has moderate pain with active motion of the hip with minimal pain with passive range of motion of hip. Distally he has intact sensation with good capillary refills. Assessment & Plan Assessment and Plan Pathologic fracture to right iliac wing Weightbearing as tolerated right lower extremity. Avoid active leg lifts or abduction Oncology for pathologic workup Repeat x-rays in 2-3 weeks Surendra Roach Jr. January 10, 2018 11:05
[2018-01-10 12:00] VITALS: BP 120/61; PULSE 92; RESP 18; TEMP 97.4; O2SAT 94
--- NOTE | 2018-01-10 12:39 | PD.CONS ---
HPI Service Urology Consult Requested By Dr Badillo Reason for Consult Metastatic RCC Primary Care Physician No Primary Care Physician Diagnosis: History of Present Illness 57y.o M with large left renal mass, mets to lungs, LN and bone. Stage 4 RCC. 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 COPD Benign heart murmur Right thyroid nodules status post biopsy Hiatal hernia Past Surgical History Endoscopic had a hernia surgery Tooth removal for abscess in 2002 Kidney stone surgery 1989 Allergies: Coded Allergies: meperidine (Verified Allergy, Severe, 01/05/18) Family History Prominent history of diabetes, hypertension and COPD in the family Sister of ovarian cancer metastatic to the bone Social History The patient is , currently non-smoker, stopped smoking 10 years ago but used to smoke 2 packs a day for 35 years No significant alcohol use Physical Exam Vital Signs Date Time Temp Pulse Resp B/P (MAP) Pulse Ox O2 Delivery O2 Flow Rate FiO2 01/10/18 12:00 97.4 92 18 120/61 (80) 94 01/10/18 08:00 98.0 88 18 124/58 (80) 95 01/10/18 07:46 Room Air 01/10/18 00:01 97.5 89 18 101/54 (70) 95 01/09/18 21:30 Room Air 01/09/18 20:00 98.1 87 18 113/56 (75) 95 01/09/18 16:00 97.9 86 16 126/60 (82) 97 Physical Exam GENERAL: This is a well-nourished, well-developed patient, in no apparent distress. SKIN: No rashes, ecchymoses or lesions. Cool and dry. CARDIOVASCULAR: Regular rate and rhythm without murmurs, gallops, or rubs. RESPIRATORY: Clear to auscultation. Breath sounds equal bilaterally. No wheezes , rales, or rhonchi. GASTROINTESTINAL: Abdomen soft, non-tender, nondistended. GENITOURINARY:Bladder not distended. No CVAT MUSCULOSKELETAL: Extremities without clubbing, cyanosis, or edema. . NEUROLOGICAL: Awake and alert. . Lab results reviewed: Yes Laboratory Tests Test 01/10/18 07:35 White Blood Count 5.5 Red Blood Count 4.13 Hemoglobin 9.0 Hematocrit 28.6 Mean Corpuscular Volume 69.1 Mean Corpuscular Hemoglobin 21.7 Mean Corpuscular Hemoglobin Concent 31.4 Red Cell Distribution Width 18.8 Platelet Count 393 Mean Platelet Volume 7.6 Neutrophils (%) (Auto) 71.0 Lymphocytes (%) (Auto) 13.6 Monocytes (%) (Auto) 10.7 Eosinophils (%) (Auto) 3.9 Basophils (%) (Auto) 0.8 Neutrophils # (Auto) 3.9 Lymphocytes # (Auto) 0.7 Monocytes # (Auto) 0.6 Eosinophils # (Auto) 0.2 Basophils # (Auto) 0.0 CBC Comment DIFF FINAL Differential Comment Date/Time Source Procedure Growth Status 01/09/18 11:10 Urine Clean Catch Urine Culture - Preliminary Gram Negative Ab Resulted Result Diagram: 01/10/18 0735 01/09/18 0443 Personally reviewed images: Yes Imaging Last Impressions Renal Ultrasound 01/09/18 0000 Signed Impressions: Service Date/Time: Tuesday, January 09, 2018 10:40 - CONCLUSION: 1. Large abnormal left-sided kidney mass. This is most likely renal cell carcinoma. 2. Small right renal cyst. 3. No evidence of hydronephrosis. Shan Houston MD Bone Biopsy CT 01/08/18 0000 Signed Impressions: Service Date/Time: Monday, January 08, 2018 08:38 - CONCLUSION: Uncomplicated CT guided biopsy soft tissue mass destroying the right iliac bone. Jose Roberto Valdivia MD Lower Extremity Ultrasound 01/07/18 0000 Signed Impressions: Service Date/Time: Sunday, January 07, 2018 11:16 - CONCLUSION: Negative venous ultrasound study. Surendra Higgins MD Bone Scan Nuclear Medicine 01/07/18 0000 Signed Impressions: Service Date/Time: Sunday, January 07, 2018 13:13 - CONCLUSION: 1. Small focal area of increased uptake anterior right 7th rib with both a sclerotic and soft tissue nodule seen in the same area on recent CT scan. 2. Mild uptake along the inferior anterior margin of the osteolytic lesion in the right iliac bone. 3. No other osteoblastic lesions. Please note that metastatic lesions from renal cell carcinoma frequently do not demonstrate increased diphosphonate uptake. Lucas Tyler MD Chest CT 01/06/18 0000 Signed Impressions: Service Date/Time: Saturday, January 06, 2018 14:17 - CONCLUSION: 1. Numerous lung nodules consistent with widespread metastatic disease. 2. Large left renal mass thought to represent a renal cell carcinoma. 3. Moderate hiatal hernia. 4. 2.7 cm right thyroid nodule. Jose Roberto Rico MD Abdomen/Pelvis CT 01/06/18 0000 Signed Impressions: Service Date/Time: Saturday, January 06, 2018 14:17 - CONCLUSION: 1. Large left renal mass will certainly representing a large left renal cell carcinoma. There does appear to be enlarged lymph node seen in the left retroperitoneum. 2. Numerous masses in the lung bases likely related to metastatic disease. 3. Pathological fracture through a metastatic lesion in the right iliac bone. 4. Venous collaterals in the left lower abdomen. There is questionable decreased density in the left common iliac vein concerning for possible thrombus. 5. Hepatic steatosis. 6. Moderate hiatal hernia. Jose Roberto Rico MD Lower Extremity CT 01/05/18 0000 Signed Impressions: Service Date/Time: Saturday, January 06, 2018 00:47 - CONCLUSION: 1. No hip fracture seen. 2. Pathologic fracture of the right iliac wing with associated 4.9 cm lytic lesion involving the lateral iliac wing and with associated adjacent soft tissue swelling. Differential considerations for the lytic lesion include a metastasis, giant cell tumor, and brown tumor. Lucas Tyler MD Assessment and Plan Assessment and Plan 57y.o M with stage 4 metastatic RCC. 16cm left renal mass with lung, retroperitoneal LN and bone mets Aslo has Gm- rods on UC Continue care as per primary team Oncology to initiate treatment No Acute intervention needed now Pt has extensive metastatic disease and surgery may not significantly reflect his disease progression and treatment He can still f/u as an outpt to discuss his options with after discharge Discussed Condition With Dr Jez BOO attending who agrees with this plan Neftali Patricia January 10, 2018 12:38
--- NOTE | 2018-01-10 12:42 | HHI.PR ---
Subjective Remarks Patient is just finishing lunch, sitting up on the side of the bed. He has a very positive attitude about starting treatment. Urology consult is pending for possible nephrectomy. Patient states he has noticed less dysuria and frequency since starting the antibiotics. Denies any chest pain. Objective Vitals Vital Signs Date Time Temp Pulse Resp B/P (MAP) Pulse Ox O2 Delivery O2 Flow Rate FiO2 01/10/18 12:00 97.4 92 18 120/61 (80) 94 01/10/18 08:00 98.0 88 18 124/58 (80) 95 01/10/18 07:46 Room Air 01/10/18 00:01 97.5 89 18 101/54 (70) 95 01/09/18 21:30 Room Air 01/09/18 20:00 98.1 87 18 113/56 (75) 95 01/09/18 16:00 97.9 86 16 126/60 (82) 97 I/O 01/09/18 01/09/18 01/09/18 01/10/18 01/10/18 01/10/18 07:00 15:00 23:00 07:00 15:00 23:00 Intake Total 480 ml 600 ml 100 ml Balance 480 ml 600 ml 100 ml Intake Oral 480 ml 600 ml IV Total 100 ml # Voids 5 3 1 # Bowel Movements 0 0 Result Diagram: 01/10/18 0735 01/09/18 0443 Objective Remarks General: Patient feels week and tired. SKIN: Warm and dry. CARDIOVASCULAR: Regular rate and rhythm. RESPIRATORY: No accessory muscle use. Clear to auscultation. Breath sounds equal bilaterally. MUSCULOSKELETAL: Right hip pain. NEUROLOGICAL: Awake and alert. No obvious cranial nerve deficits. Motor grossly within normal limits. Five out of 5 muscle strength in the arms and legs. Normal speech. A/P Assessment and Plan 57-year-old male with history of hypertension, diabetes mellitus and history of COPD presented with a pathologic fracture of the right hip Biopsy completed 01/08. Continue to work with PT. Plan to discharge when patient is functional in regards to ambulating with a walker. Right hip pathologic fracture, No surgical intervention needed -Ortho following -01/09 Changed pain control to Percocet PO with morphine IV breakthrough -Continue physical therapy daily, patient does not want SNF would rather have home health Right iliac crest mass Right renal mass Lung masses bilaterally Retroperitoneal lymphadenopathy Suspected metastatic cancer -Further workup needed -Bone scan completed and shows findings seen on CT -Biopsy completed, outpatient follow-up for this -Oncology following -/ Urology consulted by oncology for possible nephrectomy / Dysuria, frequency, possible UTI, may be related to renal mass -UA ordered, resulted and showed large leukocyte esterase and positive nitrates, Rocephin IV ordered, urine culture pending -Kidney ultrasound ordered, reviewed and shows no hydronephrosis -01/10 culture growing gram negative jan, likely e coli, cont IV Rocephin Hypoalbuminemia -Likely related to cancer -Cont to follow Follow Diabetes mellitus - Accu checks with Insulin sliding scale -Cont Diabetic diet Hypertension, stable -Continue home clonidine, losartan, DVT prophylaxis: Lovenox Discharge Planning once cleared by oncology, and [facility] set up Viktoria Salvador January 10, 2018 12:42
[2018-01-10 13:30] LABS: IRON (FE) 25 MCG/DL (65-175)
[2018-01-10 13:56] LABS: % SATURATION IRON PROFILE 7.5 % (20-50); FERRITIN 90 NG/ML (26-388); TOTAL IRON BINDING CAPACITY 333 MCG/DL (250-450)
[2018-01-10 14:00] LABS: FOLATE GREATER THAN 20.0 NG/ML (3.1-17.5)
[2018-01-10] MEDS: cefTRIAXone INJ 1,000 MG in SODIUM CHLORIDE 0.9% INJ 100 ML IV SCH (15:02)
[2018-01-10 16:00] VITALS: BP 121/62; PULSE 85; RESP 18; TEMP 97.9; O2SAT 96
[2018-01-10] MEDS: oxyCODONE/ACETAMINOPHEN 10 MG/325 MG TAB PO PRN (19:17)
[2018-01-10 20:00] VITALS: BP 116/58; PULSE 89; RESP 18; TEMP 98.2; O2SAT 96
[2018-01-10] MEDS: ZOLPIDEM TARTRATE 5 MG TAB PO PRN (23:54)
[2018-01-11 00:01] VITALS: BP 123/60; PULSE 78; RESP 17; TEMP 97.8; O2SAT 97
[2018-01-11 04:00] VITALS: BP 126/68; PULSE 78; RESP 18; TEMP 98.2; O2SAT 98
[2018-01-11 07:02] LABS: AUTOMATED NEUTROPHIL # 3.4 TH/MM3 (1.8-7.7); BASOPHIL # 0.1 TH/MM3 (0-0.2); BASOPHIL % 1.3 % (0.0-2.0); EOSINOPHIL # 0.2 TH/MM3 (0-0.4); HEMATOCRIT 29.7 % (39.0-51.0); HEMOGLOBIN 9.1 GM/DL (13.0-17.0); LYMPH % 17.7 % (9.0-44.0); LYMPHOCYTE # 0.9 TH/MM3 (1.0-4.8); MEAN CELL VOLUME 70.2 FL (80.0-100.0); MEAN CORPUSCULAR HEMOGLOBIN 21.6 PG (27.0-34.0); MEAN CORPUSCULAR HGB CONC 30.8 % (32.0-36.0); MEAN PLATELET VOLUME 7.9 FL (7.0-11.0); MONO % 9.9 % (0.0-8.0); MONOCYTE # 0.5 TH/MM3 (0-0.9); NEUT % 67.1 % (16.0-70.0); PLATELET COUNT 422 TH/MM3 (150-450); RED BLOOD COUNT 4.23 MIL/MM3 (4.50-5.90); RED CELL DISTRIBUTION WIDTH 19.1 % (11.6-17.2); WHITE BLOOD COUNT 5.1 TH/MM3 (4.0-11.0)
[2018-01-11 07:17] LABS: BICARBONATE 30.6 MEQ/L (21.0-32.0); CALCIUM 10.7 MG/DL (8.5-10.1); CREATININE 1.31 MG/DL (0.60-1.30)
[2018-01-11 08:00] VITALS: BP 127/67; PULSE 90; RESP 18; TEMP 97.7; O2SAT 97
[2018-01-11] MEDS: INSULIN ASPART SUPPLEMENTAL SCALE SQ SCH ×4 (08:00→21:08)
[2018-01-11] MEDS: DOCUSATE SODIUM 50 MG/SENNA 8.6 MG TAB PO SCH ×2 (08:23→21:08)
[2018-01-11] MEDS: MULTIVITAMIN TAB PO SCH (08:24)
[2018-01-11] MEDS: oxyCODONE/ACETAMINOPHEN 10 MG/325 MG TAB PO PRN ×2 (08:24→14:06)
[2018-01-11] MEDS: LOSARTAN 25 MG TAB PO SCH (08:24)
[2018-01-11] MEDS: cloNIDine HCL 0.1 MG TAB PO SCH (08:24)
[2018-01-11] MEDS: SODIUM CHLORIDE 0.9% FLUSH 10 ML FLUSH IV FLUSH SCH ×2 (08:26→21:08)
[2018-01-11 12:00] VITALS: BP 129/58; PULSE 87; RESP 18; TEMP 97.8; O2SAT 98
[2018-01-11] MEDS: cefTRIAXone INJ 1,000 MG in SODIUM CHLORIDE 0.9% INJ 100 ML IV SCH (14:07)
--- NOTE | 2018-01-11 14:16 | HHI.PR ---
Subjective Remarks Clear cell carcinoma with suspected renal origin has resulted on pathology. Nephrectomy is not planned. Initiation of treatment pending. Objective Vital Signs Date Time Temp Pulse Resp B/P (MAP) Pulse Ox O2 Delivery O2 Flow Rate FiO2 01/11/18 08:00 97.7 90 18 127/67 (87) 97 01/11/18 04:00 98.2 78 18 126/68 (87) 98 01/11/18 00:01 97.8 78 17 123/60 (81) 97 01/10/18 22:10 Room Air 01/10/18 20:00 98.2 89 18 116/58 (77) 96 01/10/18 16:00 97.9 85 18 121/62 (81) 96 I/O 01/10/18 01/10/18 01/10/18 01/11/18 01/11/18 01/11/18 06:59 14:59 22:59 06:59 14:59 22:59 Intake Total 840 ml 500 ml Balance 840 ml 500 ml Intake Oral 840 ml 500 ml # Voids 3 2 # Bowel Movements 1 Result Diagram: 01/11/18 0414 01/11/18 0414 Objective Remarks GENERAL: NAD, A&Ox3 HEAD: Normocephalic. NECK: Supple, trachea midline. No lymphadenopathy. EYES: No scleral icterus. No injection or drainage. CARDIOVASCULAR: Regular rate and rhythm without murmurs, gallops, or rubs. RESPIRATORY: Breath sounds equal bilaterally. No accessory muscle use. GASTROINTESTINAL: Abdomen soft, non-tender, nondistended. MUSCULOSKELETAL: No cyanosis, or edema. SKIN: Warm and dry. NEURO: No focal neurological deficitis. A/P Problem List: (1) Fracture of right iliac crest ICD Code: S32.301A - Unspecified fracture of right ilium, initial encounter for closed fracture (2) Pathologic fracture ICD Code: M84.40XA - Pathological fracture, unspecified site, initial encounter for fracture (3) Lung mass ICD Code: R91.8 - Other nonspecific abnormal finding of lung field (4) Renal mass ICD Code: N28.89 - Other specified disorders of kidney and ureter Assessment and Plan 57-year-old male with history of hypertension, diabetes mellitus and history of COPD presented with a pathologic fracture of the right hip Continue working with PT and walker. Oncology following. Initiation of treatment to clear cell carcinoma pending. Right hip pathologic fracture No surgical intervention needed With her following Continue pain control Continue physical therapy Clear cell carcinoma right iliac crest mass Right renal mass Lung masses bilaterally Retroperitoneal lymphadenopathy Suspected metastatic cancer Further workup needed Bone scan completed and shows findings seen on CT Biopsy completed, outpatient follow-up for this Oncology following Hypoalbuminemia Likely related to cancer Follow Diabetes mellitus Insulin sliding scale Diabetic diet Follow blood sugars Hypertension Continue: clonidine, losartan, DVT prophylaxis Lovenox Problem Qualifiers (1) Fracture of right iliac crest: Qualified Codes: S32.301A - Unspecified fracture of right ilium, initial encounter for closed fracture Roge Reyes MD January 11, 2018 14:16
[2018-01-11 16:00] VITALS: BP 128/66; PULSE 93; RESP 18; TEMP 97.8; O2SAT 95
--- NOTE | 2018-01-11 17:12 | PD.ONC.PN ---
Subjective Subjective Remarks Resting comfortably in bedside. Objective Data Date Time Temp Pulse Resp B/P (MAP) Pulse Ox O2 Delivery O2 Flow Rate FiO2 01/11/18 08:00 97.7 90 18 127/67 (87) 97 01/11/18 04:00 98.2 78 18 126/68 (87) 98 01/11/18 00:01 97.8 78 17 123/60 (81) 97 01/10/18 22:10 Room Air 01/10/18 20:00 98.2 89 18 116/58 (77) 96 01/11/18 01/11/18 01/11/18 07:00 15:00 23:00 Intake Total 500 ml Balance 500 ml Result Diagram: 01/11/18 0414 01/11/18 0414 Laboratory Results Laboratory Tests Test 01/11/18 04:14 White Blood Count 5.1 TH/MM3 Red Blood Count 4.23 MIL/MM3 Hemoglobin 9.1 GM/DL Hematocrit 29.7 % Mean Corpuscular Volume 70.2 FL Mean Corpuscular Hemoglobin 21.6 PG Mean Corpuscular Hemoglobin Concent 30.8 % Red Cell Distribution Width 19.1 % Platelet Count 422 TH/MM3 Mean Platelet Volume 7.9 FL Neutrophils (%) (Auto) 67.1 % Lymphocytes (%) (Auto) 17.7 % Monocytes (%) (Auto) 9.9 % Eosinophils (%) (Auto) 4.0 % Basophils (%) (Auto) 1.3 % Neutrophils # (Auto) 3.4 TH/MM3 Lymphocytes # (Auto) 0.9 TH/MM3 Monocytes # (Auto) 0.5 TH/MM3 Eosinophils # (Auto) 0.2 TH/MM3 Basophils # (Auto) 0.1 TH/MM3 CBC Comment DIFF FINAL Differential Comment Blood Urea Nitrogen 23 MG/DL Creatinine 1.31 MG/DL Random Glucose 150 MG/DL Calcium Level 10.7 MG/DL Sodium Level 139 MEQ/L Potassium Level 3.9 MEQ/L Chloride Level 100 MEQ/L Carbon Dioxide Level 30.6 MEQ/L Anion Gap 8 MEQ/L Estimat Glomerular Filtration Rate 56 ML/MIN Culture Results Microbiology Date/Time Source Procedure Growth Status 01/10/18 19:00 Stool Stool Stool Occult Blood (GLORIA) - Final HEMOCCULT NEGATIVE Complete 01/09/18 11:10 Urine Clean Catch Urine Culture - Final Escherichia Coli Complete Administered Medications Medications (Trade) Dose Ordered Sig/Yadi Route PRN Reason Start Time Stop Time Status Last Admin Dose Admin Insulin Aspart (NovoLOG SUPPLEMENTAL SCALE) 1 ACHS SLIDING SCALE SQ 01/06/18 08:00 01/10/18 22:10 Sodium Chloride (NS Flush) 2 ml BID IV FLUSH 01/06/18 09:00 01/11/18 08:26 Senna/Docusate Sodium (Connie-Colace) 1 tab BID PO 01/06/18 09:00 01/11/18 08:23 Magnesium Hydroxide (Milk Of Magnesia Liq) 30 ml Q12H PRN PO Mild constipation 01/06/18 02:00 01/10/18 09:27 Sennosides (Senokot) 17.2 mg Q12H PRN PO Moderate constipation 01/06/18 02:00 01/10/18 09:27 Lactulose (Lactulose Liq) 30 ml DAILY PRN PO SEVERE CONSITIPATION/ IF PO 01/06/18 02:00 01/10/18 09:27 Clonidine (Catapres) 0.1 mg DAILY PO 01/06/18 09:00 01/11/18 08:24 Losartan Potassium (Cozaar) 25 mg DAILY PO 01/06/18 09:00 01/11/18 08:24 Multivitamins (Theragran) 1 tab DAILY PO 01/06/18 09:00 01/11/18 08:24 Enoxaparin Sodium (Lovenox Inj) 40 mg Q24H SQ 01/06/18 12:00 Future Hold 01/07/18 13:00 Zolpidem Tartrate (Ambien) 5 mg HS PRN PO SLEEP 01/07/18 15:00 01/10/18 23:54 Oxycodone/ Acetaminophen (Percocet 5-325 Mg) 1 tab Q4H PRN PO pain 1-5 01/09/18 10:15 01/10/18 23:54 Oxycodone/ Acetaminophen (Percocet 10-325 Mg) 1 tab Q4H PRN PO pain 6-10 01/09/18 10:15 01/11/18 14:06 Ceftriaxone Sodium 1000 mg/ Sodium Chloride 100 ml @ 200 mls/hr Q24H IV 01/09/18 16:00 5/4/18 14:07 Objective Remarks GENERAL: Well-nourished, well-developed patient. SKIN: Warm and dry. HEAD: Normocephalic. EYES: No scleral icterus. No injection or drainage. RESPIRATORY: No accessory muscle use. GASTROINTESTINAL: Abdomen soft, non-tender, nondistended. EXTREMITIES: No cyanosis, or edema. MUSCULOSKELETAL: Adequate muscle tone. NEUROLOGICAL: No obvious focal deficit. Awake, alert, and oriented x3. PSYCHIATRIC: Appropriate mood and affect; insight and judgment normal. Assessment/Plan Assessment 57y/o male admitted with worsening right hip pain, found to have pathologic fracture, oncology consulted for possible malignancy. history of hypertension, type 2 diabetes mellitus, COPD, GERD with Bryant esophagus Thyroid nodule, status post biopsy, which was benign. Plan 1. Metastatic clear cell renal cell carcinoma --CT C/A/P: multiple lung masses, large left renal mass, enlarged lymph node in left retroperitoneum. --bone biopsy returned as clear cell renal cell carcinoma. Discussed treatment of stage 4 renal cell carcinoma. Discussed treatment with nivolumab and ipilimumab per [facility] 12/2017. Will initiate in outpatient setting upon hospital discharge. --urology recommends no surgical intervention. 2. Right iliac wing lesion associated with a pathologic fracture: ortho team treating with non operative management. Pain control per primary team 3. anemia: Stable, vitamin stores replete Elvira Badillo MD January 11, 2018 17:12
[2018-01-11 20:00] VITALS: BP 122/59; PULSE 92; RESP 17; TEMP 98.2; O2SAT 94
[2018-01-11] MEDS: ZOLPIDEM TARTRATE 5 MG TAB PO PRN (21:08)
[2018-01-12] MEDS: oxyCODONE/ACETAMINOPHEN 5 MG/325 MG TAB PO PRN ×4 (02:47→21:01)
[2018-01-12 04:00] VITALS: BP 123/59; PULSE 80; RESP 16; TEMP 98.3; O2SAT 94
[2018-01-12 07:03] LABS: AUTOMATED NEUTROPHIL # 3.5 TH/MM3 (1.8-7.7); BASOPHIL % 0.8 % (0.0-2.0); EOSINOPHIL # 0.2 TH/MM3 (0-0.4); EOSINOPHIL % 3.8 % (0.0-4.0); HEMATOCRIT 27.2 % (39.0-51.0); HEMOGLOBIN 8.5 GM/DL (13.0-17.0); LYMPH % 16.6 % (9.0-44.0); LYMPHOCYTE # 0.8 TH/MM3 (1.0-4.8); MEAN CELL VOLUME 68.4 FL (80.0-100.0); MEAN CORPUSCULAR HEMOGLOBIN 21.3 PG (27.0-34.0); MEAN CORPUSCULAR HGB CONC 31.2 % (32.0-36.0); MEAN PLATELET VOLUME 7.5 FL (7.0-11.0); MONO % 11.1 % (0.0-8.0); MONOCYTE # 0.6 TH/MM3 (0-0.9); NEUT % 67.7 % (16.0-70.0); PLATELET COUNT 389 TH/MM3 (150-450); RED BLOOD COUNT 3.98 MIL/MM3 (4.50-5.90); RED CELL DISTRIBUTION WIDTH 18.7 % (11.6-17.2); WHITE BLOOD COUNT 5.1 TH/MM3 (4.0-11.0)
[2018-01-12 07:34] LABS: INTERNATIONAL NORMALIZED RATIO 1.1 RATIO; PROTHROMBIN TIME - PATIENT 10.9 SEC (9.8-11.6)
[2018-01-12 07:37] LABS: ALBUMIN 2.3 GM/DL (3.4-5.0); ALT (GPT) 16 U/L (12-78); AST (GOT) 13 U/L (15-37); BICARBONATE 29.7 MEQ/L (21.0-32.0); BLOOD UREA NITROGEN 23 MG/DL (7-18); CHLORIDE 102 MEQ/L (98-107); CREATININE 1.43 MG/DL (0.60-1.30); GLOMERULAR FILTRATION RATE 51 ML/MIN (>89); GLUCOSE,RANDOM 166 MG/DL (74-106); SODIUM (NA) 138 MEQ/L (136-145)
[2018-01-12 07:39] LABS: ALKALINE PHOSPHATASE 126 U/L (45-117); TOTAL BILIRUBIN ADULT 0.3 MG/DL (0.2-1.0); TOTAL PROTEIN 7.2 GM/DL (6.4-8.2)
[2018-01-12] MEDS: INSULIN ASPART SUPPLEMENTAL SCALE SQ SCH ×4 (07:57→21:06)
[2018-01-12] MEDS: LOSARTAN 25 MG TAB PO SCH (07:57)
[2018-01-12] MEDS: MULTIVITAMIN TAB PO SCH (07:57)
[2018-01-12] MEDS: cloNIDine HCL 0.1 MG TAB PO SCH (07:57)
[2018-01-12] MEDS: DOCUSATE SODIUM 50 MG/SENNA 8.6 MG TAB PO SCH ×2 (07:57→21:00)
[2018-01-12] MEDS: SODIUM CHLORIDE 0.9% FLUSH 10 ML FLUSH IV FLUSH SCH ×2 (07:58→21:01)
[2018-01-12 08:00] VITALS: BP 130/63; PULSE 84; RESP 19; TEMP 99; O2SAT 95
--- NOTE | 2018-01-12 09:41 | HHI.PR ---
Subjective Remarks Plan to start treatment as an outpatient. Situation discussed with family. His home is not yet ready for his return. She needs somewhere to sleep in summer to sit. Family is trying to remedy this over the weekend. Objective Vital Signs Date Time Temp Pulse Resp B/P (MAP) Pulse Ox O2 Delivery O2 Flow Rate FiO2 01/12/18 09:23 Room Air 01/12/18 08:00 99.0 84 19 130/63 (85) 95 01/12/18 04:00 98.3 80 16 123/59 (80) 94 01/11/18 20:00 98.2 92 17 122/59 (80) 94 01/11/18 19:01 Room Air 01/11/18 16:00 97.8 93 18 128/66 (86) 95 01/11/18 12:00 97.8 87 18 129/58 (81) 98 I/O 01/11/18 01/11/18 01/11/18 01/12/18 01/12/18 01/12/18 07:00 15:00 23:00 07:00 15:00 23:00 Intake Total 500 ml 600 ml Balance 500 ml 600 ml Intake Oral 500 ml 600 ml # Voids 2 4 3 # Bowel Movements 1 Result Diagram: 01/12/1861801/12/18 06 Objective Remarks GENERAL: NAD, A&Ox3 HEAD: Normocephalic. NECK: Supple, trachea midline. No lymphadenopathy. EYES: No scleral icterus. No injection or drainage. CARDIOVASCULAR: Regular rate and rhythm without murmurs, gallops, or rubs. RESPIRATORY: Breath sounds equal bilaterally. No accessory muscle use. GASTROINTESTINAL: Abdomen soft, non-tender, nondistended. MUSCULOSKELETAL: No cyanosis, or edema. SKIN: Warm and dry. NEURO: No focal neurological deficitis. A/P Problem List: (1) Fracture of right iliac crest ICD Code: S32.301A - Unspecified fracture of right ilium, initial encounter for closed fracture (2) Pathologic fracture ICD Code: M84.40XA - Pathological fracture, unspecified site, initial encounter for fracture (3) Lung mass ICD Code: R91.8 - Other nonspecific abnormal finding of lung field (4) Renal mass ICD Code: N28.89 - Other specified disorders of kidney and ureter Assessment and Plan 57-year-old male with history of hypertension, diabetes mellitus and history of COPD presented with a pathologic fracture of the right hip Continue working with PT in the hospital. Line for treatment of clear cell carcinoma as an outpatient. Discharge planning in process. Patient's home is not yet ready for his return. Will discharge from patient's home situation is safe. Right hip pathologic fracture No surgical intervention needed With her following Continue pain control Continue physical therapy Clear cell carcinoma right iliac crest mass Right renal mass Lung masses bilaterally Retroperitoneal lymphadenopathy Suspected metastatic cancer Further workup needed Bone scan completed and shows findings seen on CT Biopsy completed, outpatient follow-up for this Oncology following Hypoalbuminemia Likely related to cancer Follow Diabetes mellitus Insulin sliding scale Diabetic diet Follow blood sugars Hypertension Continue: clonidine, losartan, DVT prophylaxis Lovenox Problem Qualifiers (1) Fracture of right iliac crest: Qualified Codes: S32.301A - Unspecified fracture of right ilium, initial encounter for closed fracture Roge Reyes MD January 12, 2018 09:41
[2018-01-12 12:00] VITALS: BP 114/65; PULSE 87; RESP 19; TEMP 97.6; O2SAT 94
[2018-01-12 16:00] VITALS: BP 138/64; PULSE 87; RESP 19; TEMP 98; O2SAT 97
[2018-01-12] MEDS: cefTRIAXone INJ 1,000 MG in SODIUM CHLORIDE 0.9% INJ 100 ML IV SCH (17:27)
[2018-01-12 20:00] VITALS: BP 141/75; PULSE 95; RESP 17; TEMP 98.8; O2SAT 96
[2018-01-12] MEDS: ZOLPIDEM TARTRATE 5 MG TAB PO PRN (21:01)
[2018-01-13 00:01] VITALS: BP 106/52; PULSE 80; RESP 17; TEMP 98.3; O2SAT 95
[2018-01-13 05:37] LABS: AUTOMATED NEUTROPHIL # 3.8 TH/MM3 (1.8-7.7); BASOPHIL # 0.1 TH/MM3 (0-0.2); EOSINOPHIL # 0.2 TH/MM3 (0-0.4); EOSINOPHIL % 3.6 % (0.0-4.0); HEMATOCRIT 29.2 % (39.0-51.0); LYMPH % 15.5 % (9.0-44.0); LYMPHOCYTE # 0.8 TH/MM3 (1.0-4.8); MEAN CELL VOLUME 69.1 FL (80.0-100.0); MEAN CORPUSCULAR HEMOGLOBIN 21.2 PG (27.0-34.0); MEAN CORPUSCULAR HGB CONC 30.7 % (32.0-36.0); MEAN PLATELET VOLUME 7.6 FL (7.0-11.0); MONO % 10.2 % (0.0-8.0); MONOCYTE # 0.6 TH/MM3 (0-0.9); NEUT % 69.7 % (16.0-70.0); PLATELET COUNT 423 TH/MM3 (150-450); RED BLOOD COUNT 4.23 MIL/MM3 (4.50-5.90); RED CELL DISTRIBUTION WIDTH 18.9 % (11.6-17.2); WHITE BLOOD COUNT 5.4 TH/MM3 (4.0-11.0)
[2018-01-13 05:59] LABS: ALBUMIN 2.4 GM/DL (3.4-5.0); AST (GOT) 15 U/L (15-37); BICARBONATE 30.7 MEQ/L (21.0-32.0); BLOOD UREA NITROGEN 23 MG/DL (7-18); CALCIUM 10.2 MG/DL (8.5-10.1); CHLORIDE 102 MEQ/L (98-107); CREATININE 1.35 MG/DL (0.60-1.30); GLOMERULAR FILTRATION RATE 54 ML/MIN (>89); GLUCOSE,RANDOM 167 MG/DL (74-106); SODIUM (NA) 139 MEQ/L (136-145)
[2018-01-13 06:01] LABS: ALKALINE PHOSPHATASE 133 U/L (45-117); ALT (GPT) 18 U/L (12-78); TOTAL BILIRUBIN ADULT 0.3 MG/DL (0.2-1.0); TOTAL PROTEIN 7.5 GM/DL (6.4-8.2)
[2018-01-13] MEDS: oxyCODONE/ACETAMINOPHEN 5 MG/325 MG TAB PO PRN ×2 (07:48→17:35)
[2018-01-13] MEDS: INSULIN ASPART SUPPLEMENTAL SCALE SQ SCH ×4 (07:48→21:00)
[2018-01-13] MEDS: SODIUM CHLORIDE 0.9% FLUSH 10 ML FLUSH IV FLUSH SCH ×2 (07:48→22:17)
[2018-01-13] MEDS: cloNIDine HCL 0.1 MG TAB PO SCH (07:49)
[2018-01-13] MEDS: DOCUSATE SODIUM 50 MG/SENNA 8.6 MG TAB PO SCH ×2 (07:49→22:16)
[2018-01-13] MEDS: LOSARTAN 25 MG TAB PO SCH (07:49)
[2018-01-13] MEDS: MULTIVITAMIN TAB PO SCH (07:49)
[2018-01-13 08:00] VITALS: BP 145/74; PULSE 99; RESP 18; TEMP 97.3; O2SAT 96
[2018-01-13] MEDS ORDERED: DOCU100C15 PO (09:30)
[2018-01-13] MEDS ORDERED: OXYC1TAB63 PO (09:30)
--- NOTE | 2018-01-13 09:39 | HHI.DS ---
Discharge Summary Admission Date Jan 06, 2018 at 01:54 Discharge Date: January 14, 2018 Admitting Diagnosis Pathologic fracture right iliac wing (1) Fracture of right iliac crest ICD Code: S32.301A - Unspecified fracture of right ilium, initial encounter for closed fracture Diagnosis: Principal (2) Fracture of right iliac wing ICD Code: S32.301A - Unspecified fracture of right ilium, initial encounter for closed fracture Diagnosis: Principal (3) Bone mass ICD Code: M89.9 - Disorder of bone, unspecified Diagnosis: Principal (4) Renal mass ICD Code: N28.89 - Other specified disorders of kidney and ureter Diagnosis: Principal (5) Pathologic fracture ICD Code: M84.40XA - Pathological fracture, unspecified site, initial encounter for fracture Diagnosis: Principal (6) Lung mass ICD Code: R91.8 - Other nonspecific abnormal finding of lung field Diagnosis: Principal Procedures Bone/Mass Biopsy Brief History - From Admission This is a 57-year-old male with history of hypertension, type 2 diabetes, COPD presenting with right hip pain for the past 4-5 weeks which worsened last night. Per patient, he has been having right hip pain for more than a month now , has been irritating, to the point that he was limping but he did not do anything with it. Last night, while he was trying to get off the bed, he felt a pop on his right hip followed by excruciating pain hence the patient decided to go to the emergency department. Upon evaluation, the patient was found to have a pathologic right iliac wing fracture with a 4.9 centimeters lesion involving the lateral iliac wing associated with soft tissue swelling. In retrospect, the patient has been losing weight, about 30-40 pounds in the last 2 -3 months but this was accompanied by moderate exercise and diet. Patient also has been having low-grade fever, subjective accompanied by drenching night sweats. He also started having a nonproductive cough, clear if any without any associated hemoptysis but with mild shortness of breath or easy fatigability when doing strenuous exercises. Patient denies any chest pain, palpitations, abdominal pain, nausea, vomiting, hematochezia or melena. He however has noticed intermittent diarrhea and constipation every 3-4 days. Of note, he had a right thyroid nodule, status post biopsy about 2 years ago, allegedly benign. There is no history of leukemia or lymphoma but sister has history of ovarian carcinoma who in August of last year. He used to be a smoker, smoked 2 pack 6 day for about 35 years, he however stopped about 10 years ago. His last colonoscopy was about 2 years ago, allegedly he had polyps that were all benign. He also endorses mild dysuria, hesitancy and nocturia. He was allegedly screened for prostate cancer and was allegedly normal last year. He further denies any headache, blurring of vision, ear pain, sore throat, runny nose, pain anywhere else, rash, or new joint pain other than the hip pain. CBC/BMP: 01/13/18 0437 01/13/18 0437 Significant Findings Laboratory Tests Test 01/10/18 12:27 01/11/18 04:14 01/12/18 06:19 01/13/18 04:37 Haptoglobin 338 MG/DL (30-200) Iron Level 25 MCG/DL (65-175) Percent Iron Saturation 7.5 % (20-50) Vitamin B12 Level 1176 PG/ML (193-986) Folate GREATER THAN 20.0 NG/ML Red Blood Count 4.23 MIL/MM3 (4.50-5.90) 3.98 MIL/MM3 (4.50-5.90) 4.23 MIL/MM3 (4.50-5.90) Hemoglobin 9.1 GM/DL (13.0-17.0) 8.5 GM/DL (13.0-17.0) 9.0 GM/DL (13.0-17.0) Hematocrit 29.7 % (39.0-51.0) 27.2 % (39.0-51.0) 29.2 % (39.0-51.0) Mean Corpuscular Volume 70.2 FL (80.0-100.0) 68.4 FL (80.0-100.0) 69.1 FL (80.0-100.0) Mean Corpuscular Hemoglobin 21.6 PG (27.0-34.0) 21.3 PG (27.0-34.0) 21.2 PG (27.0-34.0) Mean Corpuscular Hemoglobin Concent 30.8 % (32.0-36.0) 31.2 % (32.0-36.0) 30.7 % (32.0-36.0) Red Cell Distribution Width 19.1 % (11.6-17.2) 18.7 % (11.6-17.2) 18.9 % (11.6-17.2) Monocytes (%) (Auto) 9.9 % (0.0-8.0) 11.1 % (0.0-8.0) 10.2 % (0.0-8.0) Lymphocytes # (Auto) 0.9 TH/MM3 (1.0-4.8) 0.8 TH/MM3 (1.0-4.8) 0.8 TH/MM3 (1.0-4.8) Blood Urea Nitrogen 23 MG/DL (7-18) 23 MG/DL (7-18) 23 MG/DL (7-18) Creatinine 1.31 MG/DL (0.60-1.30) 1.43 MG/DL (0.60-1.30) 1.35 MG/DL (0.60-1.30) Random Glucose 150 MG/DL (74-106) 166 MG/DL (74-106) 167 MG/DL (74-106) Calcium Level 10.7 MG/DL (8.5-10.1) 10.2 MG/DL (8.5-10.1) Estimat Glomerular Filtration Rate 56 ML/MIN (>89) 51 ML/MIN (>89) 54 ML/MIN (>89) Albumin 2.3 GM/DL (3.4-5.0) 2.4 GM/DL (3.4-5.0) Alkaline Phosphatase 126 U/L (45-117) 133 U/L (45-117) Aspartate Amino Transf (AST/SGOT) 13 U/L (15-37) PE at Discharge General: Patient feels week and tired. SKIN: Warm and dry. CARDIOVASCULAR: Regular rate and rhythm. RESPIRATORY: No accessory muscle use. Clear to auscultation. Breath sounds equal bilaterally. MUSCULOSKELETAL: Right hip pain. NEUROLOGICAL: Awake and alert. No obvious cranial nerve deficits. Motor grossly within normal limits. Five out of 5 muscle strength in the arms and legs. Normal speech. Hospital Course Mr. Gillette is a 57-year-old male. He was admitted secondary to pathological hip fracture in his right iliac crest. Further workup of this showed a mass at the right iliac crest, retroperitoneal lymphadenopathy, nodularity of the lungs , and a renal mass at the left. Biopsy was taken at the iliac crest mass. 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 Overall findings would represent a renal cancer with metastasis. Urology was consulted for possible nephrectomy but nephrectomy is not recommended at this time due to the extent of the mass. Chemotherapy is planned but will occur as an outpatient. Family has been prepping the patient's residence for his return to home to make that place safe to use a walker. Preparation should be completed by tonight and patient is medically clear and stable for discharge home first thing in the morning tomorrow. Pt Condition on Discharge: Stable Discharge Disposition: Discharge Home Discharge Time: <= 30 minutes Discharge Instructions DIET: Follow Instructions for: As Tolerated, No Restrictions Activities you can perform: Regular-No Restrictions Follow up Referrals: Oncology/Hematology - 1 Week with Elvira Badillo MD PCP Follow-up - 2 Weeks New Medications: Docusate Sodium (Docusate Sodium) 100 Mg Cap 100 MG PO BID PRN for CONSTIPATION, #60 CAP 0 Refills Walker with Front Wheels (Walker with Front Wheels) 1 Mis Mis EA .XX DIRECTED, #1 0 Refills Oxycodone HCl/Acetaminophen (Oxycodone-Acetaminophen 5-325) 5 Mg-325 Mg Tablet 1 TAB PO Q6HR PRN for Pain, #80 TAB Continued Medications: Clonidine (Clonidine) 0.1 Mg Tab 0.1 MG PO DAILY for Blood Pressure Management, #60 TAB 0 Refills Cyanocobalamin (B12) 1,000 Mcg Tab 1 TAB PO DAILY Losartan (Losartan) 25 Mg Tab 25 MG PO DAILY for Blood Pressure Management, #30 TAB 0 Refills Metformin (Metformin) 500 Mg Tab 500 MG PO TIDPC for Blood Sugar Management, #90 TAB 0 Refills Multiple Vitamin (Multiple Vitamin) 1 Tab 1 TAB PO DAILY for Nutritional Supplement, TAB 0 Refills Omeprazole (Omeprazole) 10 Mg Cap 10 MG PO DAILY, #30 CAP 0 Refills Triamterene (Dyrenium) 50 Mg Cap 50 MG PO DAILY for Edema, #30 CAP 0 Refills Roge Reyes MD January 13, 2018 09:39
[2018-01-13 12:00] VITALS: BP 116/62; PULSE 81; RESP 18; TEMP 98.3; O2SAT 96
[2018-01-13] MEDS: cefTRIAXone INJ 1,000 MG in SODIUM CHLORIDE 0.9% INJ 100 ML IV SCH (16:30)
[2018-01-13 16:36] VITALS: BP 130/63; PULSE 84; RESP 17; TEMP 98.5; O2SAT 97
[2018-01-13 20:00] VITALS: BP 112/65; PULSE 88; RESP 21; TEMP 98.1; O2SAT 96
[2018-01-13] MEDS: oxyCODONE/ACETAMINOPHEN 10 MG/325 MG TAB PO PRN (22:17)
[2018-01-14] VITALS: BP 123/66; PULSE 86; RESP 20; TEMP 97.6; O2SAT 94
[2018-01-14 08:02] VITALS: BP 114/59; PULSE 90; RESP 18; TEMP 97.5; O2SAT 100
[2018-01-14] MEDS: LOSARTAN 25 MG TAB PO SCH (08:34)
[2018-01-14] MEDS: DOCUSATE SODIUM 50 MG/SENNA 8.6 MG TAB PO SCH (08:34)
[2018-01-14] MEDS: MULTIVITAMIN TAB PO SCH (08:34)
[2018-01-14] MEDS: cloNIDine HCL 0.1 MG TAB PO SCH (08:34)
[2018-01-14] MEDS: SODIUM CHLORIDE 0.9% FLUSH 10 ML FLUSH IV FLUSH SCH (08:35)
[2018-01-14] MEDS: oxyCODONE/ACETAMINOPHEN 10 MG/325 MG TAB PO PRN (08:40)
[2018-01-14] MEDS: INSULIN ASPART SUPPLEMENTAL SCALE SQ SCH (08:40)
--- NOTE | 2018-01-14 09:29 | HHI.PR ---
Subjective Remarks Follow-up pathologic fracture and diabetes mellitus. States he is doing okay. He was not discharged yesterday because family had to rearrange the house to accommodate him. He has history of diabetes on metformin and glimepiride. Advised to restart glimepiride but hold off on metformin secondary to kidney dysfunction possibly stage 3. He was told by his primary care physician that he might need to be on insulin. Discussed with nursing and daughter Objective Vitals Vital Signs Date Time Temp Pulse Resp B/P (MAP) Pulse Ox O2 Delivery O2 Flow Rate FiO2 01/14/18 08:02 97.5 90 18 114/59 (77) 100 01/14/18 00:00 97.6 86 20 123/66 (85) 94 01/13/18 23:25 18 01/13/18 23:20 Room Air 01/13/18 20:00 98.1 88 21 112/65 (81) 96 01/13/18 18:38 18 01/13/18 16:36 98.5 84 17 130/63 (85) 97 01/13/18 12:00 98.3 81 18 116/62 (80) 96 I/O 01/13/18 01/13/18 01/13/18 01/14/18 01/14/18 01/14/18 07:00 15:00 23:00 07:00 15:00 23:00 Intake Total 900 ml 650 ml Balance 900 ml 650 ml Intake Oral 900 ml 650 ml # Voids 2 3 # Bowel Movements 1 1 Result Diagram: 01/13/18 0437 01/13/18 0437 Imaging Last Impressions Renal Ultrasound 01/09/18 0000 Signed Impressions: Service Date/Time: Tuesday, January 09, 2018 10:40 - CONCLUSION: 1. Large abnormal left-sided kidney mass. This is most likely renal cell carcinoma. 2. Small right renal cyst. 3. No evidence of hydronephrosis. Shan Houston MD Bone Biopsy CT 01/08/18 0000 Signed Impressions: Service Date/Time: Monday, January 08, 2018 08:38 - CONCLUSION: Uncomplicated CT guided biopsy soft tissue mass destroying the right iliac bone. Jose Roberto Valdivia MD Lower Extremity Ultrasound 01/07/18 0000 Signed Impressions: Service Date/Time: Sunday, January 07, 2018 11:16 - CONCLUSION: Negative venous ultrasound study. Surendra Higgins MD Bone Scan Nuclear Medicine 01/07/18 0000 Signed Impressions: Service Date/Time: Sunday, January 07, 2018 13:13 - CONCLUSION: 1. Small focal area of increased uptake anterior right 7th rib with both a sclerotic and soft tissue nodule seen in the same area on recent CT scan. 2. Mild uptake along the inferior anterior margin of the osteolytic lesion in the right iliac bone. 3. No other osteoblastic lesions. Please note that metastatic lesions from renal cell carcinoma frequently do not demonstrate increased diphosphonate uptake. Lucas Tyler MD Chest CT 01/06/18 0000 Signed Impressions: Service Date/Time: Saturday, January 06, 2018 14:17 - CONCLUSION: 1. Numerous lung nodules consistent with widespread metastatic disease. 2. Large left renal mass thought to represent a renal cell carcinoma. 3. Moderate hiatal hernia. 4. 2.7 cm right thyroid nodule. Jose Roberto Rico MD Abdomen/Pelvis CT 01/06/18 0000 Signed Impressions: Service Date/Time: Saturday, January 06, 2018 14:17 - CONCLUSION: 1. Large left renal mass will certainly representing a large left renal cell carcinoma. There does appear to be enlarged lymph node seen in the left retroperitoneum. 2. Numerous masses in the lung bases likely related to metastatic disease. 3. Pathological fracture through a metastatic lesion in the right iliac bone. 4. Venous collaterals in the left lower abdomen. There is questionable decreased density in the left common iliac vein concerning for possible thrombus. 5. Hepatic steatosis. 6. Moderate hiatal hernia. Jose Roberto Rico MD Lower Extremity CT 01/05/18 0000 Signed Impressions: Service Date/Time: Saturday, January 06, 2018 00:47 - CONCLUSION: 1. No hip fracture seen. 2. Pathologic fracture of the right iliac wing with associated 4.9 cm lytic lesion involving the lateral iliac wing and with associated adjacent soft tissue swelling. Differential considerations for the lytic lesion include a metastasis, giant cell tumor, and brown tumor. Lucas Tyler MD Objective Remarks GENERAL: NAD, A&Ox3 HEAD: Normocephalic. NECK: Supple, trachea midline. No lymphadenopathy. EYES: No scleral icterus. No injection or drainage. CARDIOVASCULAR: Regular rate and rhythm without murmurs, gallops, or rubs. RESPIRATORY: Breath sounds equal bilaterally. No accessory muscle use. GASTROINTESTINAL: Abdomen soft, non-tender, nondistended. MUSCULOSKELETAL: No cyanosis but with bilateral lower extremity pitting edema which is mild and according to the patient happens when his legs are lowered SKIN: Warm and dry. NEURO: No focal neurological deficits. Procedures Bone/Mass Biopsy A/P Problem List: (1) Fracture of right iliac crest ICD Code: S32.301A - Unspecified fracture of right ilium, initial encounter for closed fracture (2) Fracture of right iliac wing ICD Code: S32.301A - Unspecified fracture of right ilium, initial encounter for closed fracture (3) Bone mass ICD Code: M89.9 - Disorder of bone, unspecified (4) Renal mass ICD Code: N28.89 - Other specified disorders of kidney and ureter (5) Pathologic fracture ICD Code: M84.40XA - Pathological fracture, unspecified site, initial encounter for fracture (6) Lung mass ICD Code: R91.8 - Other nonspecific abnormal finding of lung field Assessment and Plan 57-year-old male with history of hypertension, diabetes mellitus and history of COPD presented with a pathologic fracture of the right hip Right hip pathologic fracture No surgical intervention needed Continue pain control with Percocet counseled regarding narcotics Continue physical therapy Clear cell carcinoma right iliac crest mass Right renal mass Lung masses bilaterally Retroperitoneal lymphadenopathy Suspected metastatic cancer Bone scan completed and shows findings seen on CT Biopsy completed, outpatient follow-up for this Oncology following Hypoalbuminemia Likely related to cancer Follow Diabetes mellitus Insulin sliding scale Diabetic diet Follow blood sugars restart glimepiride. Hold metformin secondary to kidney dysfunction. May need insulin in the near future Hypertension Continue: clonidine, losartan, DVT prophylaxis Lovenox Discharge Planning Stable for discharge Problem Qualifiers (1) Fracture of right iliac crest: Qualified Codes: S32.301A - Unspecified fracture of right ilium, initial encounter for closed fracture (2) Fracture of right iliac wing: Qualified Codes: S32.301A - Unspecified fracture of right ilium, initial encounter for closed fracture Leonardo Rodriguez MD January 14, 2018 09:28
[2018-01-14] MEDS ORDERED: ENOX40P SQ (09:35)
--- NOTE | 2018-01-14 09:39 | HHI.DS ---
Discharge Summary Admission Date Jan 06, 2018 at 01:54 Discharge Date: January 14, 2018 Admitting Diagnosis Pathologic fracture right iliac wing (1) Fracture of right iliac crest ICD Code: S32.301A - Unspecified fracture of right ilium, initial encounter for closed fracture Diagnosis: Principal (2) Fracture of right iliac wing ICD Code: S32.301A - Unspecified fracture of right ilium, initial encounter for closed fracture Diagnosis: Principal (3) Bone mass ICD Code: M89.9 - Disorder of bone, unspecified Diagnosis: Principal (4) Renal mass ICD Code: N28.89 - Other specified disorders of kidney and ureter Diagnosis: Principal (5) Pathologic fracture ICD Code: M84.40XA - Pathological fracture, unspecified site, initial encounter for fracture Diagnosis: Principal (6) Lung mass ICD Code: R91.8 - Other nonspecific abnormal finding of lung field Diagnosis: Principal Procedures Bone/Mass Biopsy Brief History - From Admission This is a 57-year-old male with history of hypertension, type 2 diabetes, COPD presenting with right hip pain for the past 4-5 weeks which worsened last night. Per patient, he has been having right hip pain for more than a month now , has been irritating, to the point that he was limping but he did not do anything with it. Last night, while he was trying to get off the bed, he felt a pop on his right hip followed by excruciating pain hence the patient decided to go to the emergency department. Upon evaluation, the patient was found to have a pathologic right iliac wing fracture with a 4.9 centimeters lesion involving the lateral iliac wing associated with soft tissue swelling. In retrospect, the patient has been losing weight, about 30-40 pounds in the last 2 -3 months but this was accompanied by moderate exercise and diet. Patient also has been having low-grade fever, subjective accompanied by drenching night sweats. He also started having a nonproductive cough, clear if any without any associated hemoptysis but with mild shortness of breath or easy fatigability when doing strenuous exercises. Patient denies any chest pain, palpitations, abdominal pain, nausea, vomiting, hematochezia or melena. He however has noticed intermittent diarrhea and constipation every 3-4 days. Of note, he had a right thyroid nodule, status post biopsy about 2 years ago, allegedly benign. There is no history of leukemia or lymphoma but sister has history of ovarian carcinoma who in August of last year. He used to be a smoker, smoked 2 pack 6 day for about 35 years, he however stopped about 10 years ago. His last colonoscopy was about 2 years ago, allegedly he had polyps that were all benign. He also endorses mild dysuria, hesitancy and nocturia. He was allegedly screened for prostate cancer and was allegedly normal last year. He further denies any headache, blurring of vision, ear pain, sore throat, runny nose, pain anywhere else, rash, or new joint pain other than the hip pain. CBC/BMP: 01/13/18 0437 01/13/18 0437 Significant Findings Laboratory Tests Test 01/12/18 06:19 01/13/18 04:37 Red Blood Count 3.98 MIL/MM3 (4.50-5.90) 4.23 MIL/MM3 (4.50-5.90) Hemoglobin 8.5 GM/DL (13.0-17.0) 9.0 GM/DL (13.0-17.0) Hematocrit 27.2 % (39.0-51.0) 29.2 % (39.0-51.0) Mean Corpuscular Volume 68.4 FL (80.0-100.0) 69.1 FL (80.0-100.0) Mean Corpuscular Hemoglobin 21.3 PG (27.0-34.0) 21.2 PG (27.0-34.0) Mean Corpuscular Hemoglobin Concent 31.2 % (32.0-36.0) 30.7 % (32.0-36.0) Red Cell Distribution Width 18.7 % (11.6-17.2) 18.9 % (11.6-17.2) Monocytes (%) (Auto) 11.1 % (0.0-8.0) 10.2 % (0.0-8.0) Lymphocytes # (Auto) 0.8 TH/MM3 (1.0-4.8) 0.8 TH/MM3 (1.0-4.8) Blood Urea Nitrogen 23 MG/DL (7-18) 23 MG/DL (7-18) Creatinine 1.43 MG/DL (0.60-1.30) 1.35 MG/DL (0.60-1.30) Random Glucose 166 MG/DL (74-106) 167 MG/DL (74-106) Albumin 2.3 GM/DL (3.4-5.0) 2.4 GM/DL (3.4-5.0) Alkaline Phosphatase 126 U/L (45-117) 133 U/L (45-117) Aspartate Amino Transf (AST/SGOT) 13 U/L (15-37) Estimat Glomerular Filtration Rate 51 ML/MIN (>89) 54 ML/MIN (>89) Calcium Level 10.2 MG/DL (8.5-10.1) Imaging Last Impressions Renal Ultrasound 01/09/18 0000 Signed Impressions: Service Date/Time: Tuesday, January 09, 2018 10:40 - CONCLUSION: 1. Large abnormal left-sided kidney mass. This is most likely renal cell carcinoma. 2. Small right renal cyst. 3. No evidence of hydronephrosis. Shan Houston MD Bone Biopsy CT 01/08/18 0000 Signed Impressions: Service Date/Time: Monday, January 08, 2018 08:38 - CONCLUSION: Uncomplicated CT guided biopsy soft tissue mass destroying the right iliac bone. Jose Roberto Valdivia MD Lower Extremity Ultrasound 01/07/18 0000 Signed Impressions: Service Date/Time: Sunday, January 07, 2018 11:16 - CONCLUSION: Negative venous ultrasound study. Surendra Higgins MD Bone Scan Nuclear Medicine 01/07/18 0000 Signed Impressions: Service Date/Time: Sunday, January 07, 2018 13:13 - CONCLUSION: 1. Small focal area of increased uptake anterior right 7th rib with both a sclerotic and soft tissue nodule seen in the same area on recent CT scan. 2. Mild uptake along the inferior anterior margin of the osteolytic lesion in the right iliac bone. 3. No other osteoblastic lesions. Please note that metastatic lesions from renal cell carcinoma frequently do not demonstrate increased diphosphonate uptake. Lucas Tyler MD Chest CT 01/06/18 0000 Signed Impressions: Service Date/Time: Saturday, January 06, 2018 14:17 - CONCLUSION: 1. Numerous lung nodules consistent with widespread metastatic disease. 2. Large left renal mass thought to represent a renal cell carcinoma. 3. Moderate hiatal hernia. 4. 2.7 cm right thyroid nodule. Jose Roberto Rico MD Abdomen/Pelvis CT 01/06/18 0000 Signed Impressions: Service Date/Time: Saturday, January 06, 2018 14:17 - CONCLUSION: 1. Large left renal mass will certainly representing a large left renal cell carcinoma. There does appear to be enlarged lymph node seen in the left retroperitoneum. 2. Numerous masses in the lung bases likely related to metastatic disease. 3. Pathological fracture through a metastatic lesion in the right iliac bone. 4. Venous collaterals in the left lower abdomen. There is questionable decreased density in the left common iliac vein concerning for possible thrombus. 5. Hepatic steatosis. 6. Moderate hiatal hernia. Jose Roberto Rico MD Lower Extremity CT 01/05/18 0000 Signed Impressions: Service Date/Time: Saturday, January 06, 2018 00:47 - CONCLUSION: 1. No hip fracture seen. 2. Pathologic fracture of the right iliac wing with associated 4.9 cm lytic lesion involving the lateral iliac wing and with associated adjacent soft tissue swelling. Differential considerations for the lytic lesion include a metastasis, giant cell tumor, and brown tumor. Lucas Tyler MD PE at Discharge GENERAL: NAD, A&Ox3 HEAD: Normocephalic. NECK: Supple, trachea midline. No lymphadenopathy. EYES: No scleral icterus. No injection or drainage. CARDIOVASCULAR: Regular rate and rhythm without murmurs, gallops, or rubs. RESPIRATORY: Breath sounds equal bilaterally. No accessory muscle use. GASTROINTESTINAL: Abdomen soft, non-tender, nondistended. MUSCULOSKELETAL: No cyanosis but with bilateral lower extremity pitting edema which is mild and according to the patient happens when his legs are lowered SKIN: Warm and dry. NEURO: No focal neurological deficits. Hospital Course Also advised to Mr. Gillette is a 57-year-old male. He was admitted secondary to pathological hip fracture in his right iliac crest. Further workup of this showed a mass at the right iliac crest, retroperitoneal lymphadenopathy, nodularity of the lungs, and a renal mass at the left. Biopsy was taken at the iliac crest mass. 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 Overall findings would represent a renal cancer with metastasis. Urology was consulted for possible nephrectomy but nephrectomy is not recommended at this time due to the extent of the mass. Chemotherapy is planned but will occur as an outpatient. Family has been prepping the patient' s residence for his return to home to make that place safe to use a walker. Also has kidney dysfunction likely chronic stage III. Avoid nephrotoxins and hold triamterene for now. Hold off with metformin and continue glimepiride for his diabetes. Pt Condition on Discharge: Stable Discharge Disposition: Disch w/ Home Health Serv Discharge Time: > 30 minutes Discharge Instructions DIET: Follow Instructions for: As Tolerated, No Restrictions, Diabetic Diet Activities you can perform: Regular-No Restrictions Follow up Referrals: Oncology/Hematology - 1 Week with Elvira Badillo MD PCP Follow-up - 2 Weeks New Orders: COMP MET PROF (CMP) - 1 Week New Medications: Docusate Sodium (Docusate Sodium) 100 Mg Cap 100 MG PO BID PRN for CONSTIPATION, #60 CAP 0 Refills Walker with Front Wheels (Walker with Front Wheels) 1 Mis Mis EA .XX DIRECTED, #1 0 Refills Enoxaparin Inj (Lovenox Inj) 40 Mg/0.4 Ml Syr 40 MG SQ Q24H for Prevent Blood Clot, #30 INJECTION Oxycodone HCl/Acetaminophen (Oxycodone-Acetaminophen 5-325) 5 Mg-325 Mg Tablet 1 TAB PO Q6HR PRN for Pain, #80 TAB Continued Medications: Clonidine (Clonidine) 0.1 Mg Tab 0.1 MG PO DAILY for Blood Pressure Management, #60 TAB 0 Refills Cyanocobalamin (B12) 1,000 Mcg Tab 1 TAB PO DAILY Losartan (Losartan) 25 Mg Tab 25 MG PO DAILY for Blood Pressure Management, #30 TAB 0 Refills Multiple Vitamin (Multiple Vitamin) 1 Tab 1 TAB PO DAILY for Nutritional Supplement, TAB 0 Refills Omeprazole (Omeprazole) 10 Mg Cap 10 MG PO DAILY, #30 CAP 0 Refills Discontinued Medications: Metformin (Metformin) 500 Mg Tab 500 MG PO TIDPC for Blood Sugar Management, #90 TAB 0 Refills Triamterene (Dyrenium) 50 Mg Cap 50 MG PO DAILY for Edema, #30 CAP 0 Refills Leonardo Rodriguez MD January 14, 2018 09:39
== END 2018-01-14 11:08 | disposition home or self-care (01) | DRG 674 ==
LOC: PHED 22:35 → PHEDA 01-06 01:54 → N06A 01-06 05:59
PROVIDERS: ADMIT Internal Medicine; ATTEND Internal Medicine
PROC: 0QB23ZX Excision of Right Pelvic Bone, Percutaneous Approach, Diagnostic (ICD-10-PCS; principal; 2018-01-08)
DX: C64.2 Malignant neoplasm of left kidney, except renal pelvis (principal); M84.454A Pathological fracture, pelvis, initial encounter for fracture; C79.51 Secondary malignant neoplasm of bone; C78.00 Secondary malignant neoplasm of unspecified lung; N18.3 Chronic kidney disease, stage 3 (moderate); E11.22 Type 2 diabetes mellitus with diabetic chronic kidney disease; N39.0 Urinary tract infection, site not specified; E88.09 Other disorders of plasma-protein metabolism, not elsewhere classified; B96.20 Unspecified Escherichia coli [E. coli] as the cause of diseases classified elsewhere; D64.9 Anemia, unspecified; J44.9 Chronic obstructive pulmonary disease, unspecified; K21.9 Gastro-esophageal reflux disease without esophagitis; I12.9 Hypertensive chronic kidney disease with stage 1 through stage 4 chronic kidney disease, or unspecified chronic kidney disease; K22.70 Barrett's esophagus without dysplasia; R63.4 Abnormal weight loss; R01.0 Benign and innocent cardiac murmurs; R59.0 Localized enlarged lymph nodes; R19.7 Diarrhea, unspecified; K59.00 Constipation, unspecified; R91.8 Other nonspecific abnormal finding of lung field; Z87.891 Personal history of nicotine dependence; Z87.442 Personal history of urinary calculi; Z79.84 Long term (current) use of oral hypoglycemic drugs
CPT/HCPCS: 20220; 71260; 73700; 74177; 76775; 76937; 77012; 78306; 80048; 80053; 80076; 81001; 82272; 82565; 82607; 82728; 82746; 82948; 83010; 83540; 83550; 83615; 84153; 84154; 84520; 85025; 85384; 85610; 85730; 87077; 87086; 87186; 88305; 88307; 88341; 88342; 93970; 96372; 99152; 99153; A9503; J0696; J1650; J1815; J1885; J2250; J2270; J3010; J7030; Q9963; Q9967

== ENCOUNTER 2018-01-25 13:29 | Emergency (ER) | END 2018-01-25 16:55 | disposition home or self-care (01) | DX: C64.9 Malignant neoplasm of unspecified kidney, except renal pelvis (principal); C79.9 Secondary malignant neoplasm of unspecified site | CPT/HCPCS: 80048; 81001; 85025; 99283; J7030 ==

== ENCOUNTER 2018-01-29 06:05 | Day surgery (SDC) | payer OTHER ==
[~2018-01-29] VITALS: Ht 175.3 cm; Wt 116.4 kg
[~2018-01-29 06:05] MED LIST changes: -ACIP20TA19 PO; -ALBU6.7H INH; +BENA25CA4 PO; +CITA20TA4 PO; -CLON.2 PO; +CLON0.2T PO; +CYAN1TAB24 PO; +DOCU100C15 PO; +GLIM4TAB PO; +LOSA100T PO; -LOSA25TA31 PO; +MULTTAB67 PO; +OXYC1TAB63 PO; +TRIA37.53 PO; +WALKER WHEELS/F1 MIS
[2018-01-29 06:48] VITALS: BP 148/79; PULSE 96; RESP 20; TEMP 98; O2SAT 94
[2018-01-29] MEDS ORDERED: DAILTAB43 (06:58)
[2018-01-29] MEDS ORDERED: OMEP20TA93 PO (06:58)
[2018-01-29] MEDS ORDERED: MELA5 PO (06:58)
[2018-01-29] MEDS ORDERED: TYLE325T PO (06:58)
[2018-01-29] MEDS ORDERED: VANCOMYCIN 1000 MG/NS 250 ML - implanted port/tunneled catheter IV SCH ×2 (07:00)
[2018-01-29] MEDS ORDERED: ceFAZolin 2 GM PREMIX 50 ML - implanted port/tunneled catheter insertion IV SCH (07:00)
[2018-01-29] MEDS ORDERED: CHLORHEXIDINE GLUCONATE 2 % 1 PACK (2 CLOTHS) TOPICAL SCH (07:00)
[2018-01-29] MEDS ORDERED: POVIDONE IODINE 5% (ANTISEPSIS KIT) 4 APPLICATIONS EACH NARE SCH (07:00)
[2018-01-29] MEDS ORDERED: SODIUM CHLORIDE 0.9% 1000 ML IV SCH (07:00)
[2018-01-29] MEDS ORDERED: MUPIROCIN 2% OINT 1 APPLIC/GM SYR EACH NARE SCH (07:00)
[2018-01-29 07:32] LABS: INTERNATIONAL NORMALIZED RATIO 1.1 RATIO; PROTHROMBIN TIME - PATIENT 11.2 SEC (9.8-11.6)
[2018-01-29] MEDS ORDERED: fentaNYL CITRATE 250 MCG/5 ML AMP ONE (07:50)
[2018-01-29] MEDS ORDERED: MIDAZOLAM HCL 5 MG/5 ML VIAL ONE (07:50)
[2018-01-29] MEDS ORDERED: LIDOCAINE 1%/EPINEPHrine 1:100,000 SOLN 30 ML VIAL ONE (08:07)
[2018-01-29 09:00] VITALS: BP 148/84; PULSE 103; RESP 18; TEMP 98.3; O2SAT 91
--- NOTE | 2018-01-29 09:02 | RADRPT ---
EXAM DATE/TIME: 01/29/2018 08:17 [place] COMPARISON: No previous studies available for comparison. INDICATIONS : Patient with renal cancer.Needs infusaport for chemotherapy. MEDICAL HISTORY : 1. renal cancer. 2.COPD 3.DM 4. GERD 5. HTN 6. kidney stones 7. hiatal hernia SURGICAL HISTORY : 1. Kidney stones removed 2. oral surgery 3. Gastric surgery.Barretts esophagus 4. renal bx ENCOUNTER: Initial ACUITY: 1 month PAIN SCORE: 5/10 LOCATION: rt hip FLUORO TIME: 0.1 minute IMAGE SERIES: 1 SEDATION TIME: 30 minutes ACCESS: Right internal jugular vein Prophylactic antibiotics were administered with appropriate pre-procedure timing. Vancomycin within 2 hours of procedure, Ancef (or alternative) within 1 hour of procedure. DEVICE: 1. 8 Greek single lumen BioFlo port PROCEDURE : 1. Continuous pulse oximetry and EKG monitoring. 2. Intravenous conscious sedation. 3. Ultrasound guidance for venous access. 4. Fluoroscopic guided implantable central venous port placement. The patient was placed supine. The neck was prepped in sterile fashion. Full sterile technique was u sed, including cap, mask, sterile gloves and gown, and a large sterile sheet. Hand hygiene and 2% ch lorhexidine Betadine was utilized per protocol for cutaneous antisepsis with appropriate dry time for site. Sterile gel and sterile probe cover were utilized for ultrasound guidance. The skin and sub cutaneous tissues were infiltrated with local anesthetic solution. Under direct ultrasound guidance, central venous access was accomplished in the targeted vessel. The ultrasound images depicting access guidance were stored and saved to PACS for permanent record. A s ubcutaneous pocket was created using blunt dissection. The port was introduced to the pocket. The c atheter tubing was fed through a subcutaneous tunnel to the venotomy site. The catheter tubing was c ut to a suitable length and then was introduced through a valved Peel-Away sheath and positioned with catheter tubing tip at the cavo-atrial junction level. The pocket incision was closed with subcutic ular Vicryl suture. Steri-Strips were applied. The port was flushed and locked with heparin solutio n per protocol. Sterile dressing was applied to the site. The patient tolerated the procedure well. Conscious sedation was performed with the prescribed dosages and duration as above in the presence of an independent trained radiology nurse to assist in the monitoring of the patient. EKG and oximetry remained stable throughout the procedure. The patient tolerated the procedure well and there were no complications. The patient was sent to post anesthesia recovery in stable condition. CONCLUSION: Uncomplicated ultrasound and fluoroscopic guided implanted central venous port catheter placement as described in detail above. An 8 Greek Power port was placed. Bonifacio Ramsey MD on January 29, 2018 at 8:59 Board Certified Radiologist. This report was verified electronically.
[2018-01-29 09:15] VITALS: BP 144/77; PULSE 98; RESP 17; O2SAT 92
[2018-01-29 09:45] VITALS: BP 124/72; PULSE 100; RESP 18; O2SAT 94
[2018-01-29 10:15] VITALS: BP 132/74; PULSE 97; RESP 17; O2SAT 95
[2018-01-29 10:45] VITALS: BP 138/75; PULSE 101; RESP 18; O2SAT 94
== END 2018-01-29 11:07 | disposition home or self-care (01) ==
LOC: HROP 06:05 → HRIP 06:06 → HROP 11:07
PROVIDERS: ATTEND Internal Medicine
DX: Z45.2 Encounter for adjustment and management of vascular access device (principal); C64.9 Malignant neoplasm of unspecified kidney, except renal pelvis; I10 Essential (primary) hypertension; E11.9 Type 2 diabetes mellitus without complications; J44.9 Chronic obstructive pulmonary disease, unspecified; Z87.442 Personal history of urinary calculi
CPT/HCPCS: 36561; 76937; 77001; 85610; 85730; 99152; 99153; C1788; J0690; J1642; J2250; J3010; J3370; J7030; J7050

== ENCOUNTER 2018-07-25 16:43 | Inpatient (IN) ==
--- NOTE | 2018-07-25 17:24 | P.HP ---
History of Present Illness Primary Care Physician: UNKNOWN Chief Complaint: Direct admission by his Primary foreclosure specialist History of Present Illness: This is a pleasant 58 y/o Male with Hypertension, DM II, COPD, GERD, benign heart murmur, Right thyroid nodules status post biopsy, with Stage IV Metastatic Renal Cell Carcinoma, Metastatic to the Lung retroperitoneum Bone and Brain. Doctor Elvira Badillo Notes: He had previously been followed while in the inpatient hospital stay he was hospitalized from January 06, 2018 through January [id number]. He initially presented to the hospital with a 4-5 week history of worsening right hip pain. This hip pain is been present for several weeks however over the past several days leading up to admission it had been progressively worsening. Imaging studies in the emergency room revealed a pathologic right iliac wing fracture with a 4.9 cm lytic lesion involving the lateral iliac wing with associated soft tissue swelling. He also has unintentional weight loss low-grade fever and drenching night sweats. CT scan of the chest with numerous lung nodules consistent with widespread metastatic disease large left renal mass thought to represent renal cell carcinoma moderate hiatal hernia and a 2.[address] scan of the abdomen and pelvis showed a large left renal mass enlarged lymph node in the left retroperitoneum numerous masses in the lung bases likely related to metastatic disease pathologic fracture through metastatic lesion in the right iliac bone.. He underwent biopsy of the right ilium lesion which showed metastatic clear cell renal carcinoma. Recent results of MRI brain with 3 small intraparenchymal located within the right frontal lobe right temporal lobe and left temporal lobe. Cutaneous nodule involving the right parietal soft tissues. This extends from the outer cortex of the calvarium superficially forming an exophytic soft tissue. Cutaneous metastasis cannot be excluded. Patient reports that he has been to see the chief lifestyle officer. Biopsy of lesions on head returned as renal cell carcinoma. On this opportunity send by his Primary maintenance specialist due to that the patient is dehydrated not eating or drinking properly, probable infection, asked for CT abdomen and Pelvis and laboratory stat and direct admission performed. started on IV fluids, probable infection to rule out , palliative care consult. Inpatient Certification: I certify that the inpatient services were ordered in accordance with Medicare regulations governing the order. This includes certification that hospital inpatient services are reasonable and necessary and in the case of services not specified as inpatient-only under 42 CFR 419.22(n), that they are appropriately provided as inpatient services in accordance to with the 2-midnight benchmark under 43 CFR 412.3(e) Review of Systems All other systems reviewed negative except as stated in HPI [facility] - Medical History Medical History: Medical History (Last Updated 07/25/18 @ 17:27 by Diogenes Barajas MD) Diabetes Diabetes mellitus, type II H/O nephrolithotomy with removal of calculi Hypertension - Family History Family History: Family History (Last Updated 07/25/18 @ 18:34 by Diogenes Barajas MD) Mother Family history of cancer Medications and Allergies Allergies Allergy/AdvReac Type Severity Reaction Status Date / Time meperidine Allergy Severe Verified 01/25/18 15:11 Exam Narrative: GENERAL: This is a well-nourished, well-developed patient, in no apparent distress. CARDIOVASCULAR: Regular rate and rhythm without murmurs, gallops, or rubs. RESPIRATORY: Clear to auscultation. Breath sounds equal bilaterally. No wheezes , rales, or rhonchi. GASTROINTESTINAL: Abdomen soft, non-tender, nondistended. Normal active bowel sounds MUSCULOSKELETAL: Extremities without clubbing, cyanosis, or edema. NEURO: Alert & Oriented x4 to person, place, time, situation. Moves all ext x4 Caprini VTE Risk Assessment Caprini VTE Risk Assessment: Moderate/High Risk (score >= 2) Caprini Risk Assessment Model: Point Value = 1 Point Value = 2 Point Value = 3 Point Value = 5 Age 41-60 Minor surgery BMI > 25 kg/m2 Swollen legs Varicose veins or History of unexplained or recurrent spontaneous Oral contraceptives or hormone replacement Sepsis (< 1 month) Serious lung disease, including pneumonia (< 1 month) Abnormal pulmonary function Acute myocardial infarction Congestive heart failure (< 1 month) History of inflammatory bowel disease Medical patient at bed rest Age 61-74 Arthroscopic surgery Major open surgery (> 45 min) Laparoscopic surgery (> 45 min) Malignancy Confined to bed (> 72 hours) Immobilizing plaster cast Central venous access Age >= 75 History of VTE Family history of VTE Factor V Leiden Prothrombin [id number] Lupus anticoagulant Anticardiolipin antibodies Elevated serum homocysteine Heparin-induced thrombocytopenia Other congenital or acquired thrombophilia Stroke (< 1 month) Elective arthroplasty Hip, pelvis, or leg fracture Acute spinal cord injury (< 1 month) Prophylaxis Regimen: Total Risk Factor Score Risk Level Prophylaxis Regimen 0-1 Low Early ambulation 2 Moderate Order ONE of the following: *Sequential Compression Device (SCD) *Heparin 5000 units SQ BID 3-4 Higher Order ONE of the following medications: *Heparin 5000 units SQ TID *Enoxaparin/Lovenox 40 mg SQ daily (WT < 150 kg, CrCl > 30 mL/min) *Enoxaparin/Lovenox 30 mg SQ daily (WT < 150 kg, CrCl > 10-29 mL/min) *Enoxaparin/Lovenox 30 mg SQ BID (WT < 150 kg, CrCl > 30 mL/min) AND/OR *Sequential Compression Device (SCD) 5 or more Highest Order ONE of the following medications: *Heparin 5000 units SQ TID (Preferred with Epidurals) *Enoxaparin/Lovenox 40 mg SQ daily (WT < 150 kg, CrCl > 30 mL/min) *Enoxaparin/Lovenox 30 mg SQ daily (WT < 150 kg, CrCl > 10-29 mL/min) *Enoxaparin/Lovenox 30 mg SQ BID (WT < 150 kg, CrCl > 30 mL/min) AND *Sequential Compression Device (SCD) Assessment and Plan - Plan 1. Metastatic Renal Cell Carcinoma to the Lung, Retroperitoneum, Bone and Brain , followed by his Primary maintenance specialist Doctor Elvira Badillo the patient is not been eating properly was asked for direct admission asked for Laboratory, to include, TSH, Blood cultures, CBC, CMP, hemoglobin A1C, Lipid panel, lactic acid, Urinalysis and urine culture if indicated, Sn[place], CT abdomen and Pelvis, CT chest, consult oncology patient not eating or drinking started on IV fluids. 2. Hypertension continue Home medicines 3. COPD continue Bronchodilator, Mucolytic incentive spirometry 4. DM II continue sliding scale 5. GERD on GI prophylaxis 6. Anemia on chronic disease Oncology following. Lovenox for DVT prophylaxis. Discussed with patient and Nurse, his present. Nurse Present. On this opportunity send by his Primary maintenance specialist due to that the patient is dehydrated not eating or drinking properly, probable infection, asked for CT abdomen and Pelvis and laboratory stat and direct admission performed. started on IV fluids, probable infection to rule out , palliative care consult. IV fluids. following laboratory. Code Status: Full code. Discussed Condition With: Dr. Elvira Badillo Discharge Planning: Once cleared by specialist.
[2018-07-25] MEDS ORDERED: Bisacodyl 10 MG Supp RECTAL PRN (17:34)
[2018-07-25] MEDS ORDERED: Acetaminophen 325 MG Tablet PO PRN (17:34)
[2018-07-25] MEDS ORDERED: Sodium Chloride 0.9% 2 ML Flush PRN IV.FLUSH (17:44)
[2018-07-25] MEDS: Heparin - SQ 10,000 UNITS/ML Vial SQ SCH (18:35)
[2018-07-25] MEDS ORDERED: Dextrose 50% in Water 50 ML Vial IV.PUSH PRN (18:50)
[2018-07-25 20:43] LABS: Alanine Aminotransferase 46 U/L (12-78)
[2018-07-25 20:45] LABS: Alkaline Phosphatase 166 U/L (45-117); Total Protein 7.8 g/dL (6.4-8.2)
[2018-07-25] MEDS: Insulin NovoLOG Aspart Correctional Sugar Inj SQ SCH (20:45)
[2018-07-25] MEDS: Sodium Chloride 0.9% 2 ML Flush BID IV.FLUSH SCH (20:47)
[2018-07-25] MEDS: Senna/Docusate Sodium 8.6/50 MG Tablet PO SCH (20:49)
[2018-07-25] MEDS: guaiFENesin 600 MG ER Tablet PO SCH (20:50)
[2018-07-25 21:22] LABS: Albumin 2.4 g/dL (3.4-5.0); Anion Gap 10 meq/L (5-15); Aspartate Aminotransferase 45 U/L (15-37); Blood Urea Nitrogen 15 mg/dL (7-18); Calcium 8.5 mg/dL (8.5-10.1); Carbon Dioxide 26.1 meq/L (21.0-32.0); Chloride 104 meq/L (98-107); Glomerular Filtration Rate 69 mL/min (>89); Glucose,Random 110 mg/dL (74-106); Potassium 3.6 meq/L (3.5-5.1); Sodium 140 meq/L (136-145)
[2018-07-25 22:34] LABS: Creatine Kinase 127 U/L (39-308)
[2018-07-25] MEDS: Sod Chloride 0.9% Inj 1,000 ML IV.CONT SCH (23:40)
[2018-07-25 23:50] LABS: Baso % (Auto) 0.5 % (0.0-2.0); Eos # (Auto) 0.2 th/mm3 (0.0-0.4); Eos % (Auto) 5.1 % (0.0-4.0); Hematocrit 39.3 % (39.0-51.0); Hemoglobin 12.6 gm/dL (13.0-17.0); Lymph # (Auto) 1.1 th/mm3 (1.0-4.8); Lymph % (Auto) 22.7 % (9.0-44.0); Mean Corpuscular Hemoglobin 24.9 pg (27.0-34.0); Mean Corpuscular Volume 77.9 fL (80.0-100.0); Mean Platelet Volume 7.1 fL (7.0-11.0); Mono # (Auto) 0.5 th/mm3 (0.0-0.9); Mono % (Auto) 11.3 % (0.0-8.0); Neut # (Auto) 2.8 th/mm3 (1.8-7.7); Neut % (Auto) 60.4 % (16.0-70.0); Platelet Count 219 th/mm3 (150-450); Red Blood Count 5.04 mil/mm3 (4.50-5.90); Red Cell Distribution Width 25.1 % (11.6-17.2); White Blood Count 4.6 th/mm3 (4.0-11.0)
[2018-07-26 00:22] LABS: Ovalocytes 1+; Platelet Estimate Normal (Normal); Platelet Morphology Normal (Normal)
[2018-07-26 00:24] LABS: Spherocytes Occ
[2018-07-26] MEDS: Insulin NovoLOG Aspart Correctional Sugar Inj SQ SCH ×5 (03:11→22:17)
[2018-07-26] MEDS: Sod Chloride 0.9% Inj 1,000 ML IV.CONT SCH ×2 (03:13→13:24)
[2018-07-26] MEDS ORDERED: Cathflo Activase Inj 2 MG Vial I-CATHETER ONE (04:29)
[2018-07-26] MEDS: Heparin - SQ 10,000 UNITS/ML Vial SQ SCH ×2 (05:14→17:20)
--- NOTE | 2018-07-26 08:38 | P.PN ---
Subjective Interval history: This is a pleasant 58 y/o Male with Hypertension, DM II, COPD, GERD, benign heart murmur, Right thyroid nodules status post biopsy, with Stage IV Metastatic Renal Cell Carcinoma, Metastatic to the Lung retroperitoneum Bone and Brain. Doctor Elvira Badillo Notes: He had previously been followed while in the inpatient hospital stay he was hospitalized from January 06, 2018 through January [id number]. He initially presented to the hospital with a 4-5 week history of worsening right hip pain. This hip pain is been present for several weeks however over the past several days leading up to admission it had been progressively worsening. Imaging studies in the emergency room revealed a pathologic right iliac wing fracture with a 4.9 cm lytic lesion involving the lateral iliac wing with associated soft tissue swelling. He also has unintentional weight loss low-grade fever and drenching night sweats. CT scan of the chest with numerous lung nodules consistent with widespread metastatic disease large left renal mass thought to represent renal cell carcinoma moderate hiatal hernia and a 2.[address] scan of the abdomen and pelvis showed a large left renal mass enlarged lymph node in the left retroperitoneum numerous masses in the lung bases likely related to metastatic disease pathologic fracture through metastatic lesion in the right iliac bone.. He underwent biopsy of the right ilium lesion which showed metastatic clear cell renal carcinoma. Recent results of MRI brain with 3 small intraparenchymal located within the right frontal lobe right temporal lobe and left temporal lobe. Cutaneous nodule involving the right parietal soft tissues. This extends from the outer cortex of the calvarium superficially forming an exophytic soft tissue. Cutaneous metastasis cannot be excluded. Patient reports that he has been to see the dispensary clerk. Biopsy of lesions on head returned as renal cell carcinoma. On this opportunity send by his Primary duplication specialist due to that the patient is dehydrated not eating or drinking properly, probable infection, asked for CT abdomen and Pelvis and laboratory stat and direct admission performed. started on IV fluids, probable infection to rule out , palliative care consult. 07/26: Stable in his bedroom discussed with nurse Miss Dominguez and with his he had a loose stool asked for Imodium this medicine was given in the past by his Primary duplication specialist, at this time continue IV fluids and replace electrolytes. Physical Exam Vital signs: Vital Signs 07/25/18 18:11 07/25/18 20:00 07/25/18 20:22 Temperature 97.5 F L 97.2 F L Pulse Rate 91 H 97 H 88 Respiratory Rate 18 18 19 Blood Pressure 158/98 H 155/83 H Pulse Oximetry 90 L 96 07/26/18 00:00 07/26/18 01:06 07/26/18 03:51 Temperature 97.5 F L 97.9 F Pulse Rate 97 H 92 H 110 H Respiratory Rate 18 19 Blood Pressure 159/87 H 121/75 Pulse Oximetry 92 L 95 07/26/18 07:50 Temperature Pulse Rate 110 H Respiratory Rate 19 Blood Pressure Pulse Oximetry Intake & Output 07/25/18 07/26/18 07/26/18 18:59 06:59 18:59 Intake Total 240 / 240 Output Total 0 / 0 Balance 240 / 240 Weight 128.4 kg Intake: Oral 240 / 240 Output: Urine 0 / 0 Other: Date of Last Bowel Movement 07/24/18 07/24/18 Narrative: GENERAL: This is a well-nourished, well-developed patient, in no apparent distress. dry mucous membranes CARDIOVASCULAR: Regular rate and rhythm without murmurs, gallops, or rubs. RESPIRATORY: Clear to auscultation. Breath sounds equal bilaterally. No wheezes , rales, or rhonchi. GASTROINTESTINAL: Abdomen soft, non-tender, nondistended. Normal active bowel sounds MUSCULOSKELETAL: Extremities without clubbing, cyanosis, or edema. NEURO: Alert & Oriented x4 to person, place, time, situation. Moves all ext x4 Results - Labs CBC & Chem 7: 07/26/18 07:57 07/26/18 07:57 Laboratory Results - last 24 hr 07/25/18 07/25/18 07/25/18 19:46 19:47 19:47 WBC RBC Hgb Hct MCV MCH MCHC RDW Plt Count MPV Prelim Diff (Auto) Neut % (Auto) Lymph % (Auto) Pepin % (Auto) Eos % (Auto) Baso % (Auto) Neut # (Auto) Lymph # (Auto) Pepin # (Auto) Eos # (Auto) Baso # (Auto) WBC Differential Diff Scan Differential Comment Platelet Estimate Platelet Morphology Spherocytes Ovalocytes Sodium 140 Potassium 3.6 Chloride 104 Carbon Dioxide 26.1 Anion Gap 10 BUN 15 Creatinine 1.10 Estimated GFR 69 L POC Glucose 126 H Random Glucose 110 H Calcium 8.5 Total Bilirubin 0.6 AST 45 H ALT 46 Alkaline Phosphatase 166 H Total Creatine Kinase 127 Troponin I Less than 0.02 L Total Protein 7.8 Albumin 2.4 L Vitamin B12 Greater than 2000 H TSH 3.580 07/25/18 07/26/18 23:02 03:07 WBC 4.6 RBC 5.04 Hgb 12.6 L D Hct 39.3 MCV 77.9 L MCH 24.9 L MCHC 32.0 RDW 25.1 H Plt Count 219 MPV 7.1 Prelim Diff (Auto) Slide review pending Neut % (Auto) 60.4 Lymph % (Auto) 22.7 Pepin % (Auto) 11.3 H Eos % (Auto) 5.1 H Baso % (Auto) 0.5 Neut # (Auto) 2.8 Lymph # (Auto) 1.1 Pepin # (Auto) 0.5 Eos # (Auto) 0.2 Baso # (Auto) 0.0 WBC Differential . Diff Scan Auto diff confirmed Differential Comment . Platelet Estimate Normal Platelet Morphology Normal Spherocytes Occ H Ovalocytes 1+ H Sodium Potassium Chloride Carbon Dioxide Anion Gap BUN Creatinine Estimated GFR POC Glucose 131 H Random Glucose Calcium Total Bilirubin AST ALT Alkaline Phosphatase Total Creatine Kinase Troponin I Total Protein Albumin Vitamin B12 TSH - Procedures None Assessment and Plan - Plan 1. Metastatic Renal Cell Carcinoma to the Lung, Retroperitoneum, Bone and Brain , followed by his Primary duplication specialist Doctor Elvira Badillo the patient is not been eating properly was asked for direct admission asked for Laboratory, to include, TSH, Blood cultures, CBC, CMP, hemoglobin A1C, Lipid panel, lactic acid, Urinalysis and urine culture if indicated, Hazmat Tanker Driver, CT abdomen and Pelvis, CT chest, consult oncology patient not eating or drinking started on IV fluids. 2. Hypertension controlled. 3. COPD continue Bronchodilator, Mucolytic incentive spirometry 4. DM II continue sliding scale 5. GERD on GI prophylaxis 6. Anemia on chronic disease Oncology following. 7. UTI on Ceftriaxone. Lovenox for DVT prophylaxis. Code Status: Full code. Discussed Condition With: Patient, Nurse Miss Dominguez and his . Discharge Planning: Once cleared by specialist.
[2018-07-26 08:43] LABS: Bacteria,Urine Many /hpf; Bilirubin,Urine Negative (Negative); Clarity,Urine Cloudy (Clear); Color,Urine Amber (Yellw/Straw); Glucose,Urine (UA) Negative (Negative); Leukocyte Esterase,Urine Large (Negative); Nitrite,Urine Negative (Negative); Specific Gravity,Urine 1.019 (1.002-1.035); Squamous Epithelial Cell,Urine 1 /hpf (0-5); Urobilinogen,Urine 4 or Greater mg/dL (Less than 2)
[2018-07-26 08:54] LABS: Baso % (Auto) 0.8 % (0.0-2.0); Eos # (Auto) 0.2 th/mm3 (0.0-0.4); Eos % (Auto) 6.2 % (0.0-4.0); Hematocrit 38.6 % (39.0-51.0); Hemoglobin 12.5 gm/dL (13.0-17.0); Lymph # (Auto) 0.9 th/mm3 (1.0-4.8); Lymph % (Auto) 25.4 % (9.0-44.0); Mean Corpuscular HGB Conc 32.5 % (32.0-36.0); Mean Corpuscular Hemoglobin 25.6 pg (27.0-34.0); Mean Corpuscular Volume 78.8 fL (80.0-100.0); Mean Platelet Volume 7.4 fL (7.0-11.0); Mono # (Auto) 0.4 th/mm3 (0.0-0.9); Mono % (Auto) 11.9 % (0.0-8.0); Neut % (Auto) 55.7 % (16.0-70.0); Platelet Count 216 th/mm3 (150-450); Red Blood Count 4.91 mil/mm3 (4.50-5.90); Red Cell Distribution Width 25.5 % (11.6-17.2); White Blood Count 3.6 th/mm3 (4.0-11.0)
[2018-07-26] MEDS: Senna/Docusate Sodium 8.6/50 MG Tablet PO SCH (09:02)
[2018-07-26] MEDS: Ferrous Sulfate 325 MG Tablet PO SCH ×2 (09:02→22:11)
[2018-07-26] MEDS: Pantoprazole Sodium 20 MG DR Tablet PO SCH (09:02)
[2018-07-26] MEDS: Sodium Chloride 0.9% 2 ML Flush BID IV.FLUSH SCH ×2 (09:02→22:11)
[2018-07-26] MEDS: guaiFENesin 600 MG ER Tablet PO SCH ×2 (09:02→22:11)
[2018-07-26 09:28] LABS: Calcium 7.7 mg/dL (8.5-10.1); Potassium 3.2 meq/L (3.5-5.1)
[2018-07-26 09:34] LABS: Dimorphic RBC Present; Ovalocytes 1+
[2018-07-26 09:36] LABS: Spherocytes Occ
[2018-07-26] MEDS ORDERED: Diatrizoate Meglum/Diatrizoate Sod Liq 9 ML UDC PO ONE (10:15)
[2018-07-26] MEDS: Magnesium Oxide 400 MG Tablet PO SCH (10:17)
[2018-07-26] MEDS ORDERED: Sodium Chlor 0.9% Inj 500 ML IV.SIG SCH (11:44)
--- NOTE | 2018-07-26 15:21 | P.DIET ---
Nutritional Evaluation Type of nutrition evaluation: initial Nutrition screening: Weight Loss > 10 lbs, MDC (Malnutrition) Screening comments: No ht entered in EMR. Used estimated ht of 70 inches for calculations Subjective Subjective Comments: Ate 75% of breakfast. C/O diarrhea and being exhausted. Reports weight loss is from pain and nausea. Objective - Diagnosis Acute Renal Injury, Renal Cell CA - Objective % IBW: 170 (IBW 166#) Body Weight Used for Calculations: Upper end of IBW (83 kg) Energy Needs - Lower Range (kCal/kg): 28 Energy Needs - Upper Range (kCal/kg): 32 Lower Limit kCal/kg (kCals): 2,324 Upper Limit kCal/kg (kCals): 2,656 Lower Limit Protein Factor (Grams per Kg): 1.2 Upper Limit Protein Factor (Grams per Kg): 1.5 Lower Protein Needs (Protein): 100 Upper Protein Needs (Protein): 125 Dietitian Reviewed in Medical Record: Current diet, Curent medications, Intake & Output, Labs, Medical history Diet Order: Regular Objective Comments: Hx includes DM, Stage 4 metastatic renal cell CA with mets to lung, bone and brain Assessment Assessment: Pt is at high nutrition risk 2' to dx and unintentional weight loss. Po intake this morning was good. Hx of DM noted, however glucose is in fair to good control. RD will monitor for the need of diet modification. Will send Kim Domingo on trays for added nutrition. Each 8 oz serving provides 220 kcals and 10 gms protein. Recommendations: 1. Continue regular diet 2. Glucertal Domingo tid Dietitian to Monitor: Lab values, Glucose level, Supplement acceptance, Intake & Output, Diet tolerance, Weight change, PO Intake, Medical course
[2018-07-26] MEDS ORDERED: Loperamide 2 MG Capsule PO ONE (16:41)
--- NOTE | 2018-07-26 18:08 | CT ---
EXAM DATE: 07/26/2018 5:59 PM EST AGE/SEX: 58 years / Male INDICATIONS: Neoplasm; evaluate for metastatic disease. CLINICAL DATA: This is the patient's subsequent encounter. Patient reports that signs and symptoms h ave been present for 4 - 6 months and indicates a pain score of 0/10. MEDICAL/SURGICAL HISTORY: Diabetes. Renal calculi. Hypertension. Renal cell carcinoma . Nephrol ithotomy RADIATION DOSE: 20.16 CTDI (mGy) ; Combined studies COMPARISON: [facility] – [place], [place] CHEST W CONTRAST, 06/18/2018. . TECHNIQUE: Multiple contiguous axial images were obtained through the chest during bolus infusion of 94 ml Omnipaque 350 (iohexol) nonionic water-soluble contrast as a cumulative dose for multiple exa ms. Images were obtained in suspended respiration using multiple row detector helical technique. U sing automated exposure control and adjustment of the mA and/or kV according to patient size, radiati on dose was kept as low as reasonably achievable to obtain optimal diagnostic quality images. DICOM format image data is available electronically for review and comparison. FINDINGS: Lungs: Multiple bilateral pulmonary parenchymal nodules of varying sizes, largest several measuring just under 2 cm. Mediastinum: Bilateral thyroid nodules. Small pericardial effusion. Coronary calcifications. Pulmona ry embolism with filling defect most conspicuously in the distal right main pulmonary artery and righ t lower lobe segmental vessel. Moderate-sized hiatal hernia. Slightly greater than 2.5 cm subcarinal probable lymph node. Mid esophageal probable traction diverticulum. Pleurae: No evidence of focal thickening or pleural effusion. Axillae: Unremarkable. Bony Structures: Lucent lesion in the left humeral head and obvious destructive lucent lesion in the left scapula. Miscellaneous: Multiple small subcutaneous nodular masses, largest around 2 cm in size consistent wit h additional soft tissue metastatic disease CONCLUSION: 1. Widespread metastatic disease involving lungs, mediastinum, bony elements and subcutaneous tissue s. 2. Small pericardial effusion of undetermined etiology. 3. Pulmonary embolism Electronically signed by: Jose Roberto Maddox MD 07/26/2018 6:07 PM EST
--- NOTE | 2018-07-26 18:21 | CT ---
EXAM DATE: 07/26/2018 5:59 PM EST AGE/SEX: 58 years / Male INDICATIONS: Neoplasm; evaluate for metastatic disease. CLINICAL DATA: This is the patient's subsequent encounter. Patient reports that signs and symptoms h ave been present for 4 - 6 months and indicates a pain score of 0/10. MEDICAL/SURGICAL HISTORY: Diabetes. Renal calculi. Hypertension. Renal cell carcinoma . Nep hrolithotomy ORAL CONTRAST: Prescribed oral contrast ingested. RADIATION DOSE: 20.16 CTDI (mGy) ; Combined studies COMPARISON: [facility] – [place], [place] ABDOMEN & PELVIS W CONTRAST, 06/18/2018. . TECHNIQUE: Multiple contiguous axial images were obtained through the abdomen and pelvis following b olus infusion of 94 ml Omnipaque 350 (iohexol) nonionic water-soluble contrast as a cumulative dose for multiple exams. Prescribed oral contrast ingested. Using automated exposure control and adjustm ent of the mA and/or kV according to patient size, radiation dose was kept as low as reasonably achie vable to obtain optimal diagnostic quality images. DICOM format image data is available electronical ly for review and comparison. FINDINGS: Liver: Several small low density lesions in the right lobe. No evidence of biliary ductal dilatation. Spleen: Homogeneous density without enlargement. Pancreas: Unremarkable without mass or calcification. Kidneys: Greater than 13 cm complex mass involving the mid to lower pole lateral and inferior cortex of the left kidney consistent with renal cell carcinoma. Nonspecific multiple masses in the contrala teral right kidney, several worrisome for potential metastatic disease. No evidence of hydronephrosis . No definite renal vein thrombosis. Adrenal Glands: Nodular masses involving the right adrenal gland consistent with metastatic disease . Aorta: The aorta and proximal iliac vessels are grossly unremarkable without aneurysmal dilation. Bowel/Mesentery: The bowel loops are grossly unremarkable. The cecum and sigmoid colon have a normal configuration. Abdominal Wall: Multiple small soft tissue density subcutaneous nodules present, likely subcutaneous metastatic disease Retroperitoneum: Small para-aortic lymph nodes Bladder: Contours are smooth. Reproductive Organs: No abnormal masses or calcifications seen. Inguinal: The inguinal region is unremarkable without evidence of adenopathy. Bony Structures: Large destructive lytic mass and adjacent soft tissue mass involving the anterior r ight iliac crest and smaller lytic lesions more posteriorly in the right ilium. Lytic lesions in the left femoral head and acetabular region. Small lytic lesions in the left sacral ala. CONCLUSION: Large left renal cell carcinoma with metastatic disease likely to contralateral kidney, liver, right adrenal gland, subcutaneous tissues, bony elements and para-aortic lymph nodes Electronically signed by: Jose Roberto Maddox MD 07/26/2018 6:19 PM EST
[2018-07-26] MEDS: LORazepam 0.5 MG Tablet PO PRN (20:15)
[2018-07-26] MEDS ORDERED: Gadobutrol PF 10 MMOL/10 ML Vial (for RAD) IV.SIG ONE (21:00)
--- NOTE | 2018-07-26 21:22 | MR ---
EXAM DATE: 07/26/2018 9:12 PM EST AGE/SEX: 58 years / Male INDICATIONS: Altered mental status. CLINICAL DATA: This is the patient's initial encounter. Patient reports that signs and symptoms have been present for 2 days and indicates a pain score of 5/10. MEDICAL/SURGICAL HISTORY: Diabetes mellitus type II. Hypertension. Stage IV Metastatic Renal C ell Carcinoma, Metastatic to the Lung, Retroperitoneum Bone and Brain caner. Lithotripsy. Hiatal he rnia sx, Facial sx, Lt arm sx, Skin grafts. COMPARISON: [facility], MR BRAIN W AND W/O CONTRAST, 04/24/2018. [facility], MR BRAIN W AND W/O CONTRAST, 02/06. . TECHNIQUE: Multiplanar, multisequence examination of the brain was performed without and with 10 ml G adavist (gadobutrol) contrast as a single exam dose. FINDINGS: Cerebrum: The ventricles are normal for age. No evidence of midline shift, mass lesion, hemorrhage or acute infarction. No extraaxial fluid collections are seen. The pituitary gland and suprasellar cistern are normal in configuration. White Matter: No significant signal abnormalities are seen in the white matter. Posterior Fossa: The cerebellum and brainstem are intact. The 4th ventricle is midline. The cerebel lopontine angle is unremarkable. The cerebellar tonsils are normal in position. Diffusion Imaging: No focal areas of restricted diffusion are seen. No evidence of acute infarction . Extracranial: The visualized portions of the orbits and paranasal sinuses are unremarkable. Post Contrast: No abnormal areas of parenchymal or dural enhancement. No evidence of blood-brain ba rrier breakdown. Previously noted scattered areas of enhancement in the supratentorial brain have res olved. CONCLUSION: 1. History of metastatic disease to the brain. No residual enhancing lesions, mass effect, or areas of cerebral edema. Electronically signed by: Lucas Tyelr MD 07/26/2018 9:21 PM EST
--- NOTE | 2018-07-27 00:26 | MB ---
cc: Elvira Badillo MD DATE: 07/26/2018 DATE OF SERVICE: 07/26/2018 CHIEF COMPLAINT: 1. Metastatic renal cell carcinoma. 2. Pulmonary embolism. HISTORY OF PRESENT ILLNESS: Mr. Gillette is a 58-year-old gentleman with a history of widely metastatic renal cell carcinoma, who was admitted to the hospital on 07/25/2018 as a direct admit from clinic due to failure to thrive. His cancer history: He was initially found to have metastatic renal cell carcinoma. He was hospitalized in December 2017 for worsening right hip pain and he was found to have a large lytic lesion. He has been treated with dual immune therapy with nivolumab and ipilimumab with overt progression of disease. He was also found to have metastatic lesions to his brain and he is status post radiation therapy. He had a CT scan of the chest, abdomen, and pelvis done inpatient. Unfortunately, the radiologist did not compare this to his prior scans. Will review with radiology team tomorrow. He was admitted to the hospital with failure to thrive, diarrhea and encephalopathy. PAST MEDICAL HISTORY: Acid reflux, diabetes, thyroid disease, hypertension, COPD, nephrolithiasis. PAST SURGICAL HISTORY: Hernia repair surgery, plastic surgery in 2007. ALLERGIES: DEMEROL. HOSPITAL MEDICATIONS: Include: 1. . 2. Ipratropium. 3. Rocephin. 4. Celexa. 5. Clonidine. 6. Iron. 7. Losartan. 8. Magnesium. 9. Potassium. 10. Senna. FAMILY HISTORY: Sister with a history of ovarian cancer. SOCIAL HISTORY: He is and a former smoker. REVIEW OF SYSTEMS: Other than HPI, all others negative. PHYSICAL EXAMINATION: GENERAL: Overweight, chronically ill-appearing man, in no distress. HEENT: Head is normocephalic, atraumatic. Eyes: No scleral icterus. NECK: Supple. No palpable lymphadenopathy. CARDIOVASCULAR: Regular rate and rhythm. RESPIRATORY: Clear to auscultation bilaterally. ABDOMEN: Soft, nontender, nondistended. Bowel sounds present. EXTREMITIES: No edema. NEUROLOGIC: Grossly nonfocal. PSYCHIATRIC: Appropriate mood and affect. LABORATORY STUDIES: White blood cell count 3.6, hemoglobin 12.5, platelet count 216,000. Chemistry studies with a creatinine of 1.22. ASSESSMENT AND PLAN: 1. Metastatic renal cell carcinoma. concern for progression of disease. We will confirm with radiologist tomorrow, this scan compared to his prior scans that were done in the outpatient setting. We will continue to hold cabozantinib. 2. History of metastatic disease to the brain. He is status post radiation therapy. 3. Anemia, mixed anemia of chronic disease, iron deficiency anemia. Would continue to monitor. 4. Chronic malignant pain. He will continue on Percocet as needed. 5. Pulmonary embolism that was found on a recent scan. He will hold on systemic anticoagulation at this point in time, he may need to have an IVC filter in place. Patients at increased risk of bleeding are those with brain metastasis from certain cancers and these include renal cell carcinoma, as there is increased risk for spontaneous hemorrhage. The patient does have some mental slowing and encephalopathy. We will obtain MRI of the brain to evaluate metastatic lesions and to ensure that there is no hemorrhage. Studies showed that in patients with renal cell carcinoma, anticoagulation must be individualized as there are no studies in this patient's population to inform balance, risk and benefits. No known past history of intratumoral hemorrhage and he does have treated brain metastasis. Continue with heparin prophylaxis doses at this point in time. MD SIENNA Coburn/berny/lucrecia , 07:31 PM , 07:40 PM TI
[2018-07-27] MEDS: Insulin NovoLOG Aspart Correctional Sugar Inj SQ SCH ×5 (03:11→21:35)
[2018-07-27] MEDS: Heparin - SQ 10,000 UNITS/ML Vial SQ SCH (06:18)
[2018-07-27 07:28] LABS: Calcium 7.1 mg/dL (8.5-10.1); Carbon Dioxide 24.7 meq/L (21.0-32.0); Magnesium 1.4 mg/dL (1.5-2.5); Potassium 3.8 meq/L (3.5-5.1)
[2018-07-27 07:58] LABS: Total Protein 6.3 g/dL (6.4-8.2)
[2018-07-27] MEDS: Sod Chloride 0.9% Inj 1,000 ML IV.CONT SCH ×3 (09:49→17:36)
[2018-07-27] MEDS: guaiFENesin 600 MG ER Tablet PO SCH ×2 (10:16→21:32)
[2018-07-27] MEDS: Pantoprazole Sodium 20 MG DR Tablet PO SCH (10:16)
[2018-07-27] MEDS: Magnesium Oxide 400 MG Tablet PO SCH (10:16)
[2018-07-27] MEDS: Ferrous Sulfate 325 MG Tablet PO SCH ×2 (10:17→21:32)
[2018-07-27] MEDS: Sodium Chloride 0.9% 2 ML Flush BID IV.FLUSH SCH ×2 (10:17→21:33)
[2018-07-27] MEDS: Enoxaparin Inj 100 MG/ML Syringe SQ SCH ×2 (10:41→21:32)
--- NOTE | 2018-07-27 11:28 | P.PN ---
Subjective Interval history: This is a pleasant 58 y/o Male with Hypertension, DM II, COPD, GERD, benign heart murmur, Right thyroid nodules status post biopsy, with Stage IV Metastatic Renal Cell Carcinoma, Metastatic to the Lung retroperitoneum Bone and Brain. Doctor Elvira Badillo Notes: He had previously been followed while in the inpatient hospital stay he was hospitalized from January 06, 2018 through January 142017. He initially presented to the hospital with a 4-5 week history of worsening right hip pain. This hip pain is been present for several weeks however over the past several days leading up to admission it had been progressively worsening. Imaging studies in the emergency room revealed a pathologic right iliac wing fracture with a 4.9 cm lytic lesion involving the lateral iliac wing with associated soft tissue swelling. He also has unintentional weight loss low-grade fever and drenching night sweats. CT scan of the chest with numerous lung nodules consistent with widespread metastatic disease large left renal mass thought to represent renal cell carcinoma moderate hiatal hernia and a 2.[address] scan of the abdomen and pelvis showed a large left renal mass enlarged lymph node in the left retroperitoneum numerous masses in the lung bases likely related to metastatic disease pathologic fracture through metastatic lesion in the right iliac bone.. He underwent biopsy of the right ilium lesion which showed metastatic clear cell renal carcinoma. Recent results of MRI brain with 3 small intraparenchymal located within the right frontal lobe right temporal lobe and left temporal lobe. Cutaneous nodule involving the right parietal soft tissues. This extends from the outer cortex of the calvarium superficially forming an exophytic soft tissue. Cutaneous metastasis cannot be excluded. Patient reports that he has been to see the coordinate measuring machine technician. Biopsy of lesions on head returned as renal cell carcinoma. On this opportunity send by his Primary front desk specialist due to that the patient is dehydrated not eating or drinking properly, probable infection, asked for CT abdomen and Pelvis and laboratory stat and direct admission performed. started on IV fluids, probable infection to rule out , palliative care consult. 07/26: Stable in his bedroom discussed with nurse Miss Dominguez and with his he had a loose stool asked for Imodium this medicine was given in the past by his Primary front desk specialist, at this time continue IV fluids and replace electrolytes. 07/27: Seen by front desk specialist there is a progression of disease, to hold his Cabozantinib, Pulmonary Emboli on hold anticoagulation and may need IVC filter, due to high risk for bleeding due to metastatic brain disease, recommended for MRI brain, continue dose of Heparin for Prophylaxis use only. ordered Echocardiogram. started on Lovenox 100 mg BID, MRI brain with no evidence of residual lesions, Physical Exam Vital signs: Vital Signs 07/26/18 12:00 07/26/18 12:46 07/26/18 16:00 Temperature 97.2 F L 97.5 F L Pulse Rate 82 95 H 88 Respiratory Rate 18 18 18 Blood Pressure 120/76 113/55 L Pulse Oximetry 92 L 90 L 07/26/18 19:26 07/26/18 20:00 07/27/18 00:00 Temperature 97.2 F L 97.5 F L Pulse Rate 88 91 H 91 H Respiratory Rate 18 19 19 Blood Pressure 141/71 H 142/80 H Pulse Oximetry 94 L 95 07/27/18 03:34 07/27/18 04:29 07/27/18 08:00 Temperature 97.2 F L 97.9 F Pulse Rate 94 H 87 90 Respiratory Rate 18 Blood Pressure 141/69 H 134/77 Pulse Oximetry 98 92 L 07/27/18 10:37 Temperature Pulse Rate 84 Respiratory Rate 16 Blood Pressure Pulse Oximetry Intake & Output 07/26/18 07/27/18 07/27/18 18:59 06:59 18:59 Intake Total 1786 / 1786 1520 / 1520 1000 / 1000 Output Total 100 / 100 Balance 1686 / 1686 1520 / 1520 1000 / 1000 Weight 100.3 kg Intake: IV 600 / 600 1000 / 1000 1000 / 1000 NS Inj 1,000 ML @ 125 mls/hr IV 1000 / 1000 1000 / 1000 .CONT .Q8H JOLENE Rx#:[id number] NS Inj 500 ML @ 1000 mls/hr IV. 500 / 500 SIG BOLUS JOLENE Rx#:[id number] Rocephin Inj 1,000 MG In NS Inj 100 / 100 100 ML @ 200 mls/hr IV.SIG Q24H JOLENE Rx#:[id number] Oral 1186 / 1186 520 / 520 Output: Urine 100 / 100 Other: # Voids 1 Weight On Admission 99.7 kg Narrative: GENERAL: This, well-developed patient, in no apparent distress. dry mucous membranes CARDIOVASCULAR: Regular rate and rhythm without murmurs, gallops, or rubs. RESPIRATORY: Clear to auscultation. Breath sounds equal bilaterally. No wheezes , rales, or rhonchi. GASTROINTESTINAL: Abdomen soft, non-tender, nondistended. Normal active bowel sounds MUSCULOSKELETAL: Extremities without clubbing, cyanosis, or edema. NEURO: Alert & Oriented x4 to person, place, time, situation. Moves all ext x4 Results - Labs CBC & Chem 7: 07/26/18 07:57 07/27/18 06:30 Laboratory Results - last 24 hr 07/26/18 07/26/18 07/26/18 12:07 18:15 22:15 Sodium Potassium Chloride Carbon Dioxide Anion Gap BUN Creatinine Estimated GFR POC Glucose 194 H 127 H 153 H Random Glucose Calcium Prot Corrected Calcium Magnesium Total Protein 07/27/18 07/27/18 07/27/18 03:08 06:30 08:26 Sodium 141 Potassium 3.8 Chloride 107 Carbon Dioxide 24.7 Anion Gap 9 BUN 11 Creatinine 1.02 Estimated GFR 75 L POC Glucose 115 H 117 H Random Glucose 120 H Calcium 7.1 L* Prot Corrected Calcium 7.5 L Magnesium 1.4 L Total Protein 6.3 L D - Imaging Impressions Abdomen/Pelvis CT 07/26/18 00:00 CONCLUSION: Large left renal cell carcinoma with metastatic disease likely to contralateral kidney, liver, right adrenal gland, subcutaneous tissues, bony elements and para -aortic lymph nodes Chest CT 07/26/18 00:00 CONCLUSION: 1. Widespread metastatic disease involving lungs, mediastinum, bony elements and subcutaneous tissues. 2. Small pericardial effusion of undetermined etiology. 3. Pulmonary embolism Head MRI 07/26/18 00:00 CONCLUSION: 1. History of metastatic disease to the brain. No residual enhancing lesions, mass effect, or areas of cerebral edema. - Procedures None Assessment and Plan - Plan 1. Metastatic Renal Cell Carcinoma to the Lung, Retroperitoneum, Bone and Brain , followed by his Primary front desk specialist Doctor Elvira Badillo the patient is not been eating properly was asked for direct admission asked for Laboratory, to include, TSH, Blood cultures, CBC, CMP, hemoglobin A1C, Lipid panel, lactic acid, 07/27: Seen by front desk specialist recommended for MRI brain, ordered Echocardiogram. started on Lovenox 100 mg BID, MRI brain with no evidence of residual lesions. 2. Hypertension controlled. decreased Losartan to 50 mg daily. 3. COPD continue Bronchodilator, Mucolytic incentive spirometry 4. DM II continue sliding scale 5. GERD on GI prophylaxis 6. Anemia on chronic disease Oncology following. 7. UTI on Ceftriaxone. Lovenox for DVT prophylaxis. Code Status: Full code. Discussed Condition With: Patient, and Nurse. Discharge Planning: Once cleared by specialist.
--- NOTE | 2018-07-27 12:30 | P.PNONC ---
Subjective Interval history: Resting comfortably in bed, sleeping at bedside Objective Vital Signs/Intake & Output: Vital Signs 07/26/18 12:46 07/26/18 16:00 07/26/18 19:26 Temperature 97.5 F L Pulse Rate 95 H 88 88 Respiratory Rate 18 18 18 Blood Pressure 113/55 L Pulse Oximetry 90 L 07/26/18 20:00 07/27/18 00:00 07/27/18 03:34 Temperature 97.2 F L 97.5 F L 97.2 F L Pulse Rate 91 H 91 H 94 H Respiratory Rate 19 19 17 Blood Pressure 141/71 H 142/80 H 141/69 H Pulse Oximetry 94 L 95 98 07/27/18 04:29 07/27/18 08:00 07/27/18 10:37 Temperature 97.9 F Pulse Rate 87 90 84 Respiratory Rate 16 18 16 Blood Pressure 134/77 Pulse Oximetry 92 L Intake & Output 07/26/18 07/27/18 07/27/18 18:59 06:59 18:59 Intake Total 1786 / 1786 1520 / 1520 1000 / 1000 Output Total 100 / 100 Balance 1686 / 1686 1520 / 1520 1000 / 1000 Weight 100.3 kg Intake: IV 600 / 600 1000 / 1000 1000 / 1000 NS Inj 1,000 ML @ 125 mls/hr IV 1000 / 1000 1000 / 1000 .CONT .Q8H YADI Rx#:[id number] NS Inj 500 ML @ 1000 mls/hr IV. 500 / 500 SIG BOLUS YADI Rx#:[id number] Rocephin Inj 1,000 MG In NS Inj 100 / 100 100 ML @ 200 mls/hr IV.SIG Q24H YADI Rx#:[id number] Oral 1186 / 1186 520 / 520 Output: Urine 100 / 100 Other: # Voids 1 Weight On Admission 99.7 kg Result Diagrams: 07/26/18 07:57 07/27/18 06:30 Laboratory Results: Laboratory Results - last 24 hr 07/26/18 07/26/18 07/27/18 18:15 22:15 03:08 Sodium Potassium Chloride Carbon Dioxide Anion Gap BUN Creatinine Estimated GFR POC Glucose 127 H 153 H 115 H Random Glucose Calcium Prot Corrected Calcium Magnesium Total Protein 07/27/18 07/27/18 07/27/18 06:30 08:26 11:49 Sodium 141 Potassium 3.8 Chloride 107 Carbon Dioxide 24.7 Anion Gap 9 BUN 11 Creatinine 1.02 Estimated GFR 75 L POC Glucose 117 H 139 H Random Glucose 120 H Calcium 7.1 L* Prot Corrected Calcium 7.5 L Magnesium 1.4 L Total Protein 6.3 L D Imaging Studies: Impressions Abdomen/Pelvis CT 07/26/18 00:00 CONCLUSION: Large left renal cell carcinoma with metastatic disease likely to contralateral kidney, liver, right adrenal gland, subcutaneous tissues, bony elements and para -aortic lymph nodes Chest CT 07/26/18 00:00 CONCLUSION: 1. Widespread metastatic disease involving lungs, mediastinum, bony elements and subcutaneous tissues. 2. Small pericardial effusion of undetermined etiology. 3. Pulmonary embolism Head MRI 07/26/18 00:00 CONCLUSION: 1. History of metastatic disease to the brain. No residual enhancing lesions, mass effect, or areas of cerebral edema. Medications: Active Medications Generic Name Dose Route Start Last Admin Trade Name Freq PRN Reason Stop Dose Admin Albuterol 1 ampul 07/25/18 19:00 07/27/18 10:37 Duoneb Neb (Yadi) NEB 1 ampul Q6HR ALT NEB YADI Administration Citalopram Hydrobromide 40 mg 07/26/18 09:00 07/27/18 10:17 Celexa PO 40 mg DAILY YADI Administration Clonidine HCl 0.2 mg 07/26/18 09:00 07/27/18 10:17 Catapres PO 0.2 mg DAILY YADI Administration Enoxaparin Sodium 100 mg 07/27/18 10:30 07/27/18 10:41 Lovenox Inj SQ 100 mg Q12HR YADI Administration Ferrous Sulfate 325 mg 07/26/18 09:00 07/27/18 10:17 Ferosul PO 325 mg BID YADI Administration Guaifenesin 600 mg 07/25/18 21:00 07/27/18 10:16 Mucinex Er PO 600 mg BID YADI Administration Sodium Chloride 1,000 mls @ 125 mls/hr 07/25/18 17:45 07/27/18 09:49 Ns Inj IV.CONT 125 mls/hr .Q8H YADI Administration Ceftriaxone Sodium 1,000 mg/ 100 mls @ 200 mls/hr 07/26/18 17:00 07/26/18 18: 28 Sodium Chloride IV.SIG Infused Q24H YADI Infusion Insulin Aspart 0 unit 07/27/18 12:00 07/27/18 12:20 Novolog Insulin Correctional Sugar Inj SQ Not Given ,,, [facility] Protocol Lorazepam 0.5 mg 07/25/18 23:04 07/26/18 20:15 Ativan PO 0.5 mg BID PRN Administration Anxiety Losartan Potassium 100 mg 07/26/18 09:00 07/27/18 10:16 Cozaar PO 100 mg DAILY YADI Administration Magnesium Oxide 400 mg 07/26/18 11:00 07/27/18 10:16 Mag-Ox PO 400 mg DAILY@1100 [facility] Administration Oxycodone/Acetaminophen 1 tab 07/25/18 23:06 07/27/18 10:16 Percocet 5/325 Mg PO 1 tab Q6H PRN Administration PAIN SCALE 1 TO 10 Pantoprazole Sodium 20 mg 07/26/18 09:00 07/27/18 10:16 Protonix PO 20 mg DAILY YADI Administration Sodium Chloride 2 ml 07/25/18 21:00 07/27/18 10:17 Ns Flush IV.FLUSH Not Given BID [facility] Objective Remarks: GENERAL: chronically ill appearing man SKIN: Warm and dry. HEAD: Normocephalic. EYES: No scleral icterus. No injection or drainage. RESPIRATORY: Breath sounds equal bilaterally. No accessory muscle use. GASTROINTESTINAL: Abdomen soft, non-tender, nondistended. EXTREMITIES: No cyanosis, or edema. MUSCULOSKELETAL: Adequate muscle tone. NEUROLOGICAL: No obvious focal deficit. Awake, alert, and oriented x3. Assessment/Plan - Plan 1. Metastatic RCC. Reviewed imaging with radiology team. Stability to improvement of disease. Will hold cabozantinib while inpatient and will plan to resume outpatient. 2. Cardiomegaly seen on CT: will order ECHO 3. PE seen on CT: will order bilateral lower extremity venous duplex ultrasound. Will start on Lovenox 100 mg BID. MRI brain with no evidence of residual lesions. Discussed risks/benefits of anticoagulation with patient and . 4. Diarrhea: likely secondary to cabozantinib. Continue prn immodium. 5. FTT: secondary to disease and treatment continue with supportive care.
--- NOTE | 2018-07-27 15:12 | US ---
EXAM DATE: 07/27/2018 3:09 PM EST AGE/SEX: 58 years / Male INDICATIONS: Bilateral leg pain. CLINICAL DATA: This is the patient's initial encounter. Patient reports that signs and symptoms have been present for 1 day and indicates a pain score of 0/10. MEDICAL/SURGICAL HISTORY: Diabetes. Hypertension. Nephrolithotomy with removal of calculi. No ne. COMPARISON: [facility], US LEG VENOUS DOPPLER, BILATERAL, 01/25/2018. . TECHNIQUE: Venous ultrasound of both lower extremities was performed from the inguinal ligament to t he proximal calf. Real-time, color Doppler and spectral tracing, compression and augmentation techni ques were used. FINDINGS: Right Leg: Deep venous thrombus is noted within the right common femoral, greater saphenous and post erior tibial veins. Left Leg: Normal compression of the deep venous system from the inguinal region to the proximal calf . No echogenic clot is seen. Normal response of the venous system to augmentation and respiration. Other: None. CONCLUSION: Deep venous thrombus within the right common femoral, greater saphenous and posterior tibial veins. Electronically signed by: Cayden Saab MD 07/27/2018 3:11 PM EST
--- NOTE | 2018-07-27 17:45 | CT ---
EXAM DATE: 07/27/2018 5:27 PM EST AGE/SEX: 58 years / Male INDICATIONS: Left humerus pain. CLINICAL DATA: This is the patient's subsequent encounter. Patient reports that signs and symptoms h ave been present for 1 day and indicates a pain score of 7/10. MEDICAL/SURGICAL HISTORY: Renal cell carcinoma. Hypertension. None. RADIATION DOSE: 18.99 CTDI (mGy) COMPARISON: [facility] [place], 07/23/2018. [facility] [place] CHEST W [place]AST, 07/26/2018. . TECHNIQUE: Multiple contiguous axial images were acquired using a multirow detector CT scanner witho ut contrast. Multiplanar reconstruction was performed in the sagittal and coronal planes. Using aut omated exposure control and adjustment of the mA and/or kV according to patient size, radiation dose was kept as low as reasonably achievable to obtain optimal diagnostic quality images. DICOM format i mage data is available electronically for review and comparison. FINDINGS: There is an osteolytic lesion of the subglenoid scapula causing cortical destruction of the posterior margin of the scapula and a small area of cortical discontinuity anteriorly. The lytic lesion measur es 2.5 cm. The cortex of the glenoid remains intact. There is a second lytic lesion involving the sup erior humeral head at the 12:00 region measuring 1.4 cm with loss of the superior cortex about this l esion. The shaft of the humerus is intact. No soft tissue calcifications. There is a soft tissue nodu le in the subcutaneous soft tissues of the lateral chest wall mid axillary line measuring 2.2 cm. CONCLUSION: 1. There are 2 osteolytic lesions identified, involving the subglenoid scapula and the superior ritu ral head. There is also a subcutaneous soft tissue nodule lateral left chest wall. These are similar in appearance to yesterday's CT thorax. Electronically signed by: Lucas Tyler MD 07/27/2018 5:44 PM EST
[2018-07-27] MEDS: LORazepam 0.5 MG Tablet PO PRN (21:00)
[2018-07-28] MEDS: Sod Chloride 0.9% Inj 1,000 ML IV.CONT SCH ×3 (04:41→17:09)
[2018-07-28] MEDS: Insulin NovoLOG Aspart Correctional Sugar Inj SQ SCH ×4 (07:40→20:33)
--- NOTE | 2018-07-28 09:03 | P.PNIM ---
Subjective Interval history: f/u; renal cell carcinoma/ PE in no acute distress. no chest pain or sob. diarrhea has improved. no new complaints. d/w the RN. Physical Exam Vital signs: Vital Signs 07/27/18 10:37 07/27/18 12:00 07/27/18 13:45 Temperature 98.5 F Pulse Rate 84 98 H 64 Respiratory Rate 16 18 16 Blood Pressure 92/60 L Pulse Oximetry 92 L 07/27/18 16:00 07/27/18 20:00 07/27/18 20:08 Temperature 97.7 F 97.7 F Pulse Rate 95 H 88 86 Respiratory Rate 18 20 20 Blood Pressure 136/81 145/71 H Pulse Oximetry 92 L 91 L 07/28/18 00:00 07/28/18 04:00 07/28/18 07:42 Temperature 97.4 F L 97.8 F Pulse Rate 97 H 97 H 94 H Respiratory Rate 20 19 16 Blood Pressure 176/80 H 154/85 H Pulse Oximetry 91 L 91 L 07/28/18 08:00 Temperature 97.5 F L Pulse Rate 94 H Respiratory Rate 18 Blood Pressure 139/92 H Pulse Oximetry 91 L Intake & Output 07/27/18 07/28/18 07/28/18 18:59 06:59 18:59 Intake Total 2580 / 2580 1360 / 1360 Output Total 800 / 800 Balance 2580 / 2580 560 / 560 Weight 102.1 kg Intake: IV 2100 / 2100 1000 / 1000 NS Inj 1,000 ML @ 75 mls/hr IV. 2000 / 2000 1000 / 1000 CONT .[id number] JOLENE Rx#:[id number] Rocephin Inj 1,000 MG In NS Inj 100 / 100 100 ML @ 200 mls/hr IV.SIG Q24H JOLENE Rx#:[id number] Oral 480 / 480 360 / 360 Output: Urine 800 / 800 Other: # Voids 2 Date of Last Bowel Movement 07/27/18 - Constitutional no acute distress - Routine Respiratory Exam Present: CTA bilaterally - Routine Cardiovascular Exam Present: RRR - Routine Abdominal Exam Present: soft - Routine Extremities Exam Comments: no pedal edema. - Routine Neurological Exam Present: alert, oriented X3 Results - Labs CBC & Chem 7: 07/26/18 07:57 07/27/18 06:30 Laboratory Results - last 24 hr 07/27/18 07/27/18 07/27/18 11:49 17:36 21:34 POC Glucose 139 H 183 H 119 H 07/28/18 07:38 POC Glucose 108 Microbiology 07/26/18 08:15 Clean Catch Urine Urine Culture - Final 50-100,000 cfu/mL mixed tavia (probable contaminants ) - Imaging Impressions Humerus CT 07/27/18 00:00 CONCLUSION: 1. There are 2 osteolytic lesions identified, involving the subglenoid scapula and the superior humeral head. There is also a subcutaneous soft tissue nodule lateral left chest wall. These are similar in appearance to yesterday's CT thorax. Venous Doppler Study 07/27/18 00:00 CONCLUSION: Deep venous thrombus within the right common femoral, greater saphenous and posterior tibial veins. - Procedures None Assessment and Plan - Plan A/P 1. Metastatic Renal Cell Carcinoma to the Lung, Retroperitoneum, Bone and Brain , - Oncology following. 2. PE/ DVT of the right lower extremity started on subq Lovenox- Hematology following. echo pending. 3. Hypertension controlled. decreased Losartan to 50 mg daily. 4. COPD continue Bronchodilator, Mucolytic incentive spirometry 5. DM II continue sliding scale 6. GERD on GI prophylaxis 7. Anemia on chronic disease Oncology following. 8. abnormal UA- UC with mixed Tavia- stop antibiotics. Discussed Condition With: the patient and RN. Discharge Planning: when cleared by Oncology.
[2018-07-28] MEDS: Ferrous Sulfate 325 MG Tablet PO SCH ×2 (09:05→20:17)
[2018-07-28] MEDS: guaiFENesin 600 MG ER Tablet PO SCH ×2 (09:05→20:17)
[2018-07-28] MEDS: Enoxaparin Inj 100 MG/ML Syringe SQ SCH ×2 (09:06→20:17)
[2018-07-28] MEDS: Pantoprazole Sodium 20 MG DR Tablet PO SCH (09:06)
[2018-07-28] MEDS: Sodium Chloride 0.9% 2 ML Flush BID IV.FLUSH SCH ×2 (09:06→20:17)
[2018-07-28] MEDS: Magnesium Oxide 400 MG Tablet PO SCH (11:44)
--- NOTE | 2018-07-28 13:06 | P.PNONC ---
Subjective Interval history: Afebrile Patient reports he feels tired today Denies shortness of breath or pain No other acute complaints Objective Vital Signs/Intake & Output: Vital Signs 07/27/18 13:45 07/27/18 16:00 07/27/18 20:00 Temperature 97.7 F 97.7 F Pulse Rate 64 95 H 88 Respiratory Rate 16 18 20 Blood Pressure 136/81 145/71 H Pulse Oximetry 92 L 91 L 07/27/18 20:08 07/28/18 00:00 07/28/18 04:00 Temperature 97.4 F L 97.8 F Pulse Rate 86 97 H 97 H Respiratory Rate 20 20 19 Blood Pressure 176/80 H 154/85 H Pulse Oximetry 91 L 91 L 07/28/18 07:42 07/28/18 08:00 07/28/18 12:00 Temperature 97.5 F L Pulse Rate 94 H 92 H 85 Respiratory Rate 16 18 Blood Pressure 139/92 H Pulse Oximetry 91 L Intake & Output 07/27/18 07/28/18 07/28/18 18:59 06:59 18:59 Intake Total 2580 / 2580 1360 / 1360 Output Total 800 / 800 Balance 2580 / 2580 560 / 560 Weight 225 lb 1.471 oz Intake: IV 2100 / 2100 1000 / 1000 NS Inj 1,000 ML @ 75 mls/hr IV. 2000 / 2000 1000 / 1000 CONT .[id number] [facility] Rx#:[id number] Rocephin Inj 1,000 MG In NS Inj 100 / 100 100 ML @ 200 mls/hr IV.SIG Q24H [facility] Rx#:[id number] Oral 480 / 480 360 / 360 Output: Urine 800 / 800 Other: # Voids 2 Date of Last Bowel Movement 07/27/18 Result Diagrams: 07/26/18 07:57 07/27/18 06:30 Laboratory Results: Laboratory Results - last 24 hr 07/27/18 07/27/18 07/28/18 17:36 21:34 07:38 POC Glucose 183 H 119 H 108 07/28/18 11:46 POC Glucose 151 H Culture Results: Microbiology 07/26/18 08:15 Urine Culture - Final Clean Catch Urine 50-100,000 cfu/mL mixed doc (probable contaminants) Imaging Studies: Impressions Humerus CT 07/27/18 00:00 CONCLUSION: 1. There are 2 osteolytic lesions identified, involving the subglenoid scapula and the superior humeral head. There is also a subcutaneous soft tissue nodule lateral left chest wall. These are similar in appearance to yesterday's CT thorax. Venous Doppler Study 07/27/18 00:00 CONCLUSION: Deep venous thrombus within the right common femoral, greater saphenous and posterior tibial veins. Medications: Active Medications Generic Name Dose Route Start Last Admin Trade Name Freq PRN Reason Stop Dose Admin Hydrocodone Bitart/Acetaminophen 1 tab 07/28/18 09:04 07/28/18 09:28 [place] 10/325 PO 1 tab Q4H PRN Administration pain Albuterol 1 ampul 07/25/18 19:00 07/28/18 00:24 Duoneb Neb (Jolene) NEB Not Given Q6HR ALT NEB JOLENE Citalopram Hydrobromide 40 mg 07/26/18 09:00 07/28/18 09:05 Celexa PO 40 mg DAILY J[facility] Administration Clonidine HCl 0.2 mg 07/26/18 09:00 07/28/18 09:06 Catapres PO 0.2 mg DAILY [facility] Administration Enoxaparin Sodium 100 mg 07/27/18 10:30 07/28/18 09:06 Lovenox Inj SQ 100 mg Q12HR [facility] Administration Ferrous Sulfate 325 mg 07/26/18 09:00 07/28/18 09:05 Ferosul PO 325 mg BID [facility] Administration Guaifenesin 600 mg 07/25/18 21:00 07/28/18 09:05 Mucinex Er PO 600 mg BID J[facility]ENE Administration Sodium Chloride 1,000 mls @ 75 mls/hr 07/25/18 17:45 07/28/18 05:06 Ns Inj IV.CONT 125 mls/hr .[id number] [facility] Administration Insulin Aspart 0 unit 07/27/18 12:00 07/28/18 11:51 Novolog Insulin Correctional Sugar Inj SQ Not Given ,,, [facility] Protocol Lorazepam 0.5 mg 07/25/18 23:04 07/27/18 21:00 Ativan PO 0.5 mg BID PRN Administration Anxiety Losartan Potassium 50 mg 07/28/18 09:00 07/28/18 09:06 Cozaar PO 50 mg DAILY JOLENE Administration Magnesium Oxide 400 mg 07/26/18 11:00 07/28/18 11:44 Mag-Ox PO 400 mg DAILY@1100 [facility] Administration Pantoprazole Sodium 20 mg 07/26/18 09:00 07/28/18 09:06 Protonix PO 20 mg DAILY JOLENE Administration Sodium Chloride 2 ml 07/25/18 21:00 07/28/18 09:06 Ns Flush IV.FLUSH Not Given BID [facility] Objective Remarks: GENERAL: Older overweight male resting in bed in no acute distress SKIN: Warm and dry. HEAD: Normocephalic. EYES: No scleral icterus. No injection or drainage. NECK: Supple, trachea midline. No JVD or lymphadenopathy. CARDIOVASCULAR: Regular rate and rhythm without murmurs. RESPIRATORY: Breath sounds equal bilaterally. No accessory muscle use. GASTROINTESTINAL: Abdomen soft, non-tender, nondistended. EXTREMITIES: No cyanosis, or edema. MUSCULOSKELETAL: Adequate muscle tone. NEUROLOGICAL: No obvious focal deficit. Awake, alert, and oriented x3. Assessment/Plan - Plan 1. Continue to hold cabozantinib for history of metastatic renal cell carcinoma 2. Cardiomegaly seen on CT: Awaiting results of echocardiogram 3. PE seen on CT: DVT noted in the right common femoral, greater saphenous and posterior tibial veins. Continue on Lovenox 100 mg BID. MRI brain with no evidence of residual lesions. 4. Diarrhea: likely secondary to cabozantinib. Continue prn immodium. 5. FTT: secondary to disease and treatment continue with supportive care. - Attending Statement The exam, history, and the medical decision-making described in the above note were completed with the assistance of the mid-level provider. I reviewed and agree with the findings presented. I attest that I had a [id number] encounter with the patient on the same day, and personally performed and documented my assessment and findings in the medical record. MEtastatic RCC admitted with FTT. Left arm pain from metastatic lesion. Will discuss with radiation oncology team. continue supportive care.
--- NOTE | 2018-07-28 14:39 | ECHRPT ---
Indication: CARDIOMYOPATHY CONCLUSIONS Normal left ventricular size. Mild concentric left ventricular hypertrophy. The left ventricular systolic function is mildly reduced with an estimated ejection fraction in the range of 45- 50%. Inferior hypokeinsis. The estimated pulmonary arterial pressure is 29 mmHg. There is mild tricuspid valve regurgitation. There is a small pericardial effusion present, no evidence of hemodynamic compromise. Technically difficult study, some images off-axis BP: / HR: Rhythm: MEASUREMENTS (Male / Female) Normal Values Technical Quality:Technically difficult study 2D ECHO LV Diastolic Diameter PLAX 5.1 cm 4.2 - 5.9 / 3.9 - 5.3 cm LV Systolic Diameter PLAX 3.9 cm IVS Diastolic Thickness 1.5 cm 0.6 - 1.0 / 0.6 - 0.9 cm LVPW Diastolic Thickness 0.9 cm 0.6 - 1.0 / 0.6 - 0.9 cm LV Relative Wall Thickness 0.5 RV Internal Dim ED PLAX 3.1 cm LVOT Diameter 1.9 cm Aortic Root Diameter 2.5 cm LA Systolic Diameter LX 3.8 cm 3.0 - 4.0 / 2.7 - 3.8 cm LV Ejection Fraction MOD BP 44.2 % >= 55 % LV Ejection Fraction MOD 4C 51.1 % LV Ejection Fraction 4C AL 52.8 % LV Ejection Fraction MOD 2C 43.2 % LV Ejection Fraction 2C AL 44.4 % M-MODE Aortic Root Diameter MM 3.0 cm LA Systolic Diameter MM 3.9 cm LA Ao Ratio MM 1.3 AV Cusp Separation MM 2.1 cm DOPPLER AV Peak Velocity 131.0 cm/s AV Peak Gradient 6.9 mmHg LVOT Peak Velocity 94.8 cm/s LVOT Peak Gradient 3.6 mmHg AV Area Cont Eq pk 2.1 cm Mitral E Point Velocity 50.3 cm/s Mitral A Point Velocity 91.3 cm/s Mitral E to A Ratio 0.6 LV E' Lateral Velocity 9.1 cm/s Mitral E to LV E' Lateral Ratio 5.5 LV E' Septal Velocity 4.8 cm/s Mitral E to LV E' Septal Ratio 10.5 TR Peak Velocity 219.0 cm/s TR Peak Gradient 19.2 mmHg Right Atrial Pressure 10.0 mmHg Pulmonary Artery Systolic Pressu 29.2 mmHg Right Ventricular Systolic Press 29.2 mmHg PV Peak Velocity 77.4 cm/s PV Peak Gradient 2.4 mmHg FINDINGS LEFT VENTRICLE Normal left ventricular size. Mild concentric left ventricular hypertrophy. The left ventricular systolic function is mildly reduced with an estimated ejection fraction in the range of 45- 50%. Doppler parameters are consistent with impaired left ventricular relaxtion (grade 1 diastolic dysfun ction). RIGHT VENTRICLE Normal right ventricular size and systolic function. LEFT ATRIUM The left atrial size is normal. RIGHT ATRIUM The right atrial size is normal. ATRIAL SEPTUM Normal atrial septal thickness without atrial level shunting by limited color doppler interrogation. AORTA The aortic root and proximal ascending aorta are normal in size on limited imaging. MITRAL VALVE Structurally normal mitral valve. No mitral valve stenosis or regurgitation. AORTIC VALVE Trileaflet aortic valve. No aortic valve stenosis or regurgitation. TRICUSPID VALVE The estimated pulmonary arterial pressure is 29 mmHg. There is mild tricuspid valve regurgitation. PULMONARY VALVE No pulmonary valve regurgitation or stenosis. VESSELS The inferior vena cava is normal in size. PERICARDIUM There is a small pericardial effusion present. Uriel Bedolla MD (Electronically Signed) Final Date:28 July 2018 14:38
[2018-07-29] MEDS: Sod Chloride 0.9% Inj 1,000 ML IV.CONT SCH ×2 (04:55→18:12)
[2018-07-29] MEDS: guaiFENesin 600 MG ER Tablet PO SCH ×2 (08:06→20:43)
[2018-07-29] MEDS: Ferrous Sulfate 325 MG Tablet PO SCH ×2 (08:07→20:43)
[2018-07-29] MEDS: Enoxaparin Inj 100 MG/ML Syringe SQ SCH ×2 (08:07→20:43)
[2018-07-29] MEDS: Pantoprazole Sodium 20 MG DR Tablet PO SCH (08:07)
[2018-07-29] MEDS: Sodium Chloride 0.9% 2 ML Flush BID IV.FLUSH SCH ×2 (08:07→20:48)
[2018-07-29] MEDS: Insulin NovoLOG Aspart Correctional Sugar Inj SQ SCH ×4 (08:09→20:48)
[2018-07-29] MEDS ORDERED: HYDROmorphone PF Inj 1 MG/ML Ampul IV.PUSH PRN (09:45)
[2018-07-29] MEDS: Magnesium Oxide 400 MG Tablet PO SCH (11:10)
--- NOTE | 2018-07-29 14:32 | P.PNONC ---
Subjective Interval history: Resting comfortably in bed. Slowed and inappropriate responses to questions. Left arm pain Objective Vital Signs/Intake & Output: Vital Signs 07/28/18 16:00 07/28/18 19:00 07/28/18 20:00 Temperature 97.9 F 98 F Pulse Rate 88 77 88 Respiratory Rate 18 18 Blood Pressure 139/74 141/91 H Pulse Oximetry 93 L 94 L 07/29/18 00:00 07/29/18 04:00 07/29/18 04:32 Temperature 98.4 F 97.7 F Pulse Rate 93 H 98 H 91 H Respiratory Rate 19 18 17 Blood Pressure 140/92 H 149/92 H Pulse Oximetry 96 07/29/18 07:00 07/29/18 07:54 07/29/18 11:00 Temperature 98.2 F Pulse Rate 95 H 94 H 81 Respiratory Rate 18 Blood Pressure 145/91 H Pulse Oximetry 97 07/29/18 11:05 07/29/18 12:03 Temperature 98.2 F Pulse Rate 83 72 Respiratory Rate 24 16 Blood Pressure 106/74 Pulse Oximetry 93 L Intake & Output 07/28/18 07/29/18 07/29/18 18:59 06:59 18:59 Intake Total 1000 / 1000 1240 / 1240 Output Total 300 / 300 800 / 800 Balance 700 / 700 440 / 440 Weight 99.9 kg Intake: IV 1000 / 1000 1000 / 1000 NS Inj 1,000 ML @ 75 mls/hr IV. 1000 / 1000 1000 / 1000 CONT .[id number] [facility] Rx#:[id number] Oral 240 / 240 Output: Urine 300 / 300 800 / 800 Other: # Voids 1 # Urine Diapers 1 Date of Last Bowel Movement 07/27/18 07/27/18 Result Diagrams: 07/26/18 07:57 07/27/18 06:30 Laboratory Results: Laboratory Results - last 24 hr 07/28/18 07/28/18 07/29/18 17:02 20:28 07:58 POC Glucose 125 H 124 H 92 07/29/18 11:58 POC Glucose 111 H Culture Results: Microbiology 07/26/18 08:15 Urine Culture - Final Clean Catch Urine 50-100,000 cfu/mL mixed doc (probable contaminants) Medications: Active Medications Generic Name Dose Route Start Last Admin Trade Name Freq PRN Reason Stop Dose Admin Hydrocodone Bitart/Acetaminophen 1 tab 07/28/18 09:04 07/29/18 09:47 [place] 10/325 PO 1 tab Q4H PRN Administration pain Albuterol 1 ampul 07/25/18 19:00 07/29/18 12:02 Duoneb Neb (Jolene) NEB 1 ampul Q6HR ALT NEB JOLENE Administration Citalopram Hydrobromide 40 mg 07/26/18 09:00 07/29/18 09:47 Celexa PO 40 mg DAILY JLOENE Administration Clonidine HCl 0.2 mg 07/26/18 09:00 07/29/18 08:07 Catapres PO 0.2 mg DAILY JOLENE Administration Enoxaparin Sodium 100 mg 07/27/18 10:30 07/29/18 08:07 Lovenox Inj SQ 100 mg Q12HR J[facility] Administration Ferrous Sulfate 325 mg 07/26/18 09:00 07/29/18 08:07 Ferosul PO 325 mg BID JOLENE Administration Guaifenesin 600 mg 07/25/18 21:00 07/29/18 08:06 Mucinex Er PO 600 mg BID JOLENE Administration Sodium Chloride 1,000 mls @ 75 mls/hr 07/25/18 17:45 07/29/18 04:55 Ns Inj IV.CONT 125 mls/hr .[id number] [facility]OL[facility] Administration Insulin Aspart 0 unit 07/27/18 12:00 07/29/18 12:00 Novolog Insulin Correctional Sugar Inj SQ Not Given ,,, [facility] Protocol Lorazepam 0.5 mg 07/25/18 23:04 07/27/18 21:00 Ativan PO 0.5 mg BID PRN Administration Anxiety Losartan Potassium 50 mg 07/28/18 09:00 07/29/18 08:06 Cozaar PO 50 mg DAILY JOLENE Administration Magnesium Oxide 400 mg 07/26/18 11:00 07/29/18 11:10 Mag-Ox PO 400 mg DAILY@1100 JOLENE Administration Pantoprazole Sodium 20 mg 07/26/18 09:00 07/29/18 08:07 Protonix PO 20 mg DAILY J[facility]ENE Administration Sodium Chloride 2 ml 07/25/18 21:00 07/29/18 08:07 Ns Flush IV.FLUSH 2 ml BID JOLENE Administration Objective Remarks: GENERAL: chronically ill appearing man SKIN: Warm and dry. HEAD: Normocephalic. EYES: No scleral icterus. No injection or drainage. RESPIRATORY: No accessory muscle use. GASTROINTESTINAL: Abdomen soft, non-tender, nondistended. EXTREMITIES: No cyanosis, or edema. MUSCULOSKELETAL: Favors left arm due to pain NEUROLOGICAL: No obvious focal deficit. PSYCHIATRIC: delayed responses, inappropriate responses to questions Assessment/Plan - Plan 1. Metastatic RCC: holding cabozantinib. Good control of disease on CT scan. MRI brain with no further lesions. Will hold cabozantinib. Long discussion with patient and . Discussed concern that althougth there is good control of disease, he has had progressive decline in performance status. He is unable to perform ADL. ECOG 3-4. He is unable to take of himself at home. Unfortunately his condition has not improved after severals in the hosptial with IVF. He has limited appetite. At this time he would not be a candidate for further treatment. Will consult hospice. concerned that she would be unable to pay for hospice and will discuss with hospice team. 2. PE seen on CT: DVT noted in the right common femoral, greater saphenous and posterior tibial veins. Continue on Lovenox 100 mg BID. MRI brain with no evidence of residual lesions. 3. Diarrhea: likely secondary to cabozantinib. Continue prn immodium. 4. FTT: secondary to disease and treatment continue with supportive care.
--- NOTE | 2018-07-29 15:23 | P.PNIM ---
Subjective Interval history: The patient was uncomfortable with his position in bed. His family was at the bedside. They discussed with oncology and were interested in pursuing hospice at a care center. The patient has not been eating much. He has endorsed some shortness of breath. Discussed with nursing. Physical Exam Vital signs: Vital Signs 07/28/18 16:00 07/28/18 19:00 07/28/18 20:00 Temperature 97.9 F 98 F Pulse Rate 88 77 88 Respiratory Rate 18 18 Blood Pressure 139/74 141/91 H Pulse Oximetry 93 L 94 L 07/29/18 00:00 07/29/18 04:00 07/29/18 04:32 Temperature 98.4 F 97.7 F Pulse Rate 93 H 98 H 91 H Respiratory Rate 19 18 17 Blood Pressure 140/92 H 149/92 H Pulse Oximetry 96 07/29/18 07:00 07/29/18 07:54 07/29/18 11:00 Temperature 98.2 F Pulse Rate 95 H 94 H 81 Respiratory Rate 18 Blood Pressure 145/91 H Pulse Oximetry 97 07/29/18 11:05 07/29/18 12:03 Temperature 98.2 F Pulse Rate 83 72 Respiratory Rate 24 16 Blood Pressure 106/74 Pulse Oximetry 93 L Intake & Output 07/28/18 07/29/18 07/29/18 18:59 06:59 18:59 Intake Total 1000 / 1000 1240 / 1240 Output Total 300 / 300 800 / 800 Balance 700 / 700 440 / 440 Weight 99.9 kg Intake: IV 1000 / 1000 1000 / 1000 NS Inj 1,000 ML @ 75 mls/hr IV. 1000 / 1000 1000 / 1000 CONT .[id number] [facility] Rx#:[id number] Oral 240 / 240 Output: Urine 300 / 300 800 / 800 Other: # Voids 1 # Urine Diapers 1 Date of Last Bowel Movement 07/27/18 07/27/18 Narrative: GENERAL: This, well-developed patient, in no apparent distress. CARDIOVASCULAR: Regular rate and rhythm without murmurs, gallops, or rubs. RESPIRATORY: Clear to auscultation. Breath sounds equal bilaterally. No wheezes , rales, or rhonchi. GASTROINTESTINAL: Abdomen soft, non-tender, nondistended. Normal active bowel sounds. MUSCULOSKELETAL: Extremities without clubbing, cyanosis, or edema. NEURO: Alert & Oriented. Moves all ext x4. Results - Labs CBC & Chem 7: 07/26/18 07:57 07/27/18 06:30 Laboratory Results - last 24 hr 07/28/18 07/28/18 07/29/18 17:02 20:28 07:58 POC Glucose 125 H 124 H 92 07/29/18 11:58 POC Glucose 111 H - Procedures None Assessment and Plan - Plan Metastatic Renal Cell Carcinoma to the Lung, Retroperitoneum, Bone and Brain, -Oncology following. Hospice consult has been placed. -continue supportive care. Added IV Dilaudid for breakthrough pain. PE/ DVT of the right lower extremity Echo with EF 45-50%. -started on subq Lovenox- Hematology following. Hypertension controlled. -decreased Losartan to 50 mg daily. COPD -continue Bronchodilator, Mucolytic incentive spirometry. DM II -continue sliding scale. GERD -on GI prophylaxis. Anemia of chronic disease -Oncology following. PPx: Lovenox Discharge Planning: Await hospice consult
[2018-07-30] MEDS: Sod Chloride 0.9% Inj 1,000 ML IV.CONT SCH ×2 (10:12→17:50)
[2018-07-30] MEDS: Ferrous Sulfate 325 MG Tablet PO SCH ×2 (10:12→21:05)
[2018-07-30] MEDS: guaiFENesin 600 MG ER Tablet PO SCH ×2 (10:12→21:05)
[2018-07-30] MEDS: Insulin NovoLOG Aspart Correctional Sugar Inj SQ SCH ×3 (10:12→21:06)
[2018-07-30] MEDS: Pantoprazole Sodium 20 MG DR Tablet PO SCH (10:12)
[2018-07-30] MEDS: Magnesium Oxide 400 MG Tablet PO SCH (10:12)
[2018-07-30] MEDS: Sodium Chloride 0.9% 2 ML Flush BID IV.FLUSH SCH ×2 (10:15→21:05)
[2018-07-30] MEDS: Enoxaparin Inj 100 MG/ML Syringe SQ SCH ×2 (10:15→21:05)
--- NOTE | 2018-07-30 12:06 | P.PNONC ---
Subjective Interval history: Resting in bed. Hospice consult performed. Objective Vital Signs/Intake & Output: Vital Signs 07/29/18 12:03 07/29/18 15:00 07/29/18 15:20 Temperature 97.9 F Pulse Rate 72 85 82 Respiratory Rate 16 18 Blood Pressure 123/85 Pulse Oximetry 95 07/29/18 19:59 07/29/18 20:00 07/29/18 20:08 Temperature 97.8 F Pulse Rate 82 96 H 89 Respiratory Rate 18 18 Blood Pressure 141/77 H Pulse Oximetry 96 07/30/18 00:00 07/30/18 04:00 Temperature 99.7 F H 97.5 F L Pulse Rate 96 H 91 H Respiratory Rate 20 20 Blood Pressure 143/92 H 131/86 Pulse Oximetry 97 Intake & Output 07/29/18 07/30/18 07/30/18 18:59 06:59 18:59 Intake Total 1720 / 1720 1200 / 1200 Output Total 550 / 550 Balance 1170 / 1170 1200 / 1200 Weight 100.1 kg Intake: IV 1000 / 1000 1000 / 1000 NS Inj 1,000 ML @ 75 mls/hr IV. 1000 / 1000 1000 / 1000 CONT .[id number] [facility] Rx#:[id number] Oral 720 / 720 200 / 200 Output: Urine 550 / 550 Other: # Voids 1 Date of Last Bowel Movement 07/27/18 07/27/18 Result Diagrams: 07/26/18 07:57 07/27/18 06:30 Laboratory Results: Laboratory Results - last 24 hr 07/29/18 07/29/18 07/30/18 16:47 20:48 07:57 POC Glucose 99 96 95 Culture Results: Microbiology 07/26/18 08:15 Urine Culture - Final Clean Catch Urine 50-100,000 cfu/mL mixed doc (probable contaminants) Medications: Active Medications Generic Name Dose Route Start Last Admin Trade Name Freq PRN Reason Stop Dose Admin Hydrocodone Bitart/Acetaminophen 1 tab 07/28/18 09:04 07/30/18 10:11 [place] 10/325 PO 1 tab Q4H PRN Administration pain Citalopram Hydrobromide 40 mg 07/26/18 09:00 07/30/18 10:12 Celexa PO 40 mg DAILY JOLENE Administration Clonidine HCl 0.2 mg 07/26/18 09:00 07/30/18 10:12 Catapres PO 0.2 mg DAILY J[facility]ENE Administration Enoxaparin Sodium 100 mg 07/27/18 10:30 07/30/18 10:15 Lovenox Inj SQ 100 mg Q12HR [facility] Administration Ferrous Sulfate 325 mg 07/26/18 09:00 07/30/18 10:12 Ferosul PO 325 mg BID [facility] Administration Guaifenesin 600 mg 07/25/18 21:00 07/30/18 10:12 Mucinex Er PO 600 mg BID J[facility]ENE Administration Sodium Chloride 1,000 mls @ 75 mls/hr 07/25/18 17:45 07/30/18 10:12 Ns Inj IV.CONT 125 mls/hr .[id number] [facility] Administration Insulin Aspart 0 unit 07/27/18 12:00 07/30/18 10:12 Novolog Insulin Correctional Sugar Inj SQ Not Given ,,, [facility] Protocol Lorazepam 0.5 mg 07/25/18 23:04 07/27/18 21:00 Ativan PO 0.5 mg BID PRN Administration Anxiety Losartan Potassium 50 mg 07/28/18 09:00 07/30/18 10:12 Cozaar PO 50 mg DAILY JOLENE Administration Magnesium Oxide 400 mg 07/26/18 11:00 07/30/18 10:12 Mag-Ox PO 400 mg DAILY@1100 JOLENE Administration Pantoprazole Sodium 20 mg 07/26/18 09:00 07/30/18 10:12 Protonix PO 20 mg DAILY JOLENE Administration Sodium Chloride 2 ml 07/25/18 21:00 07/30/18 10:15 Ns Flush IV.FLUSH Not Given BID [facility] Objective Remarks: GENERAL: chronically ill appearing man SKIN: Warm and dry. HEAD: Normocephalic. EYES: No scleral icterus. No injection or drainage. NECK: Supple, trachea midline. No JVD or lymphadenopathy. LYMPHATIC: No adenopathy. RESPIRATORY: No accessory muscle use. GASTROINTESTINAL: Abdomen soft, non-tender, nondistended. EXTREMITIES: No cyanosis, or edema. MUSCULOSKELETAL: pain in left arm NEUROLOGICAL: No obvious focal deficit. Assessment/Plan - Plan 1. Metastatic RCC: holding cabozantinib. Hospice consult. 2. PE seen on CT: DVT noted in the right common femoral, greater saphenous and posterior tibial veins. Continue on Lovenox 100 mg BID. MRI brain with no evidence of residual lesions. 3. Diarrhea: likely secondary to cabozantinib. Continue prn immodium. 4. FTT: secondary to disease and treatment continue with supportive care.
--- NOTE | 2018-07-30 14:22 | P.PN ---
Subjective Interval history: Follow-up renal cell carcinoma with metastasis/PE and DVT July 30, 2018-patient seen and examined,. Denies any chest pain or shortness of breath. Diarrhea improving. Hospice consultation pending Physical Exam Vital signs: Vital Signs 07/29/18 15:00 07/29/18 15:20 07/29/18 19:59 Temperature 97.9 F Pulse Rate 85 82 82 Respiratory Rate 18 18 Blood Pressure 123/85 Pulse Oximetry 95 07/29/18 20:00 07/29/18 20:08 07/30/18 00:00 Temperature 97.8 F 99.7 F H Pulse Rate 96 H 89 96 H Respiratory Rate 18 20 Blood Pressure 141/77 H 143/92 H Pulse Oximetry 96 07/30/18 04:00 07/30/18 08:00 Temperature 97.5 F L 98.1 F Pulse Rate 91 H 92 H Respiratory Rate 20 22 Blood Pressure 131/86 145/87 H Pulse Oximetry 97 96 Intake & Output 07/29/18 07/30/18 07/30/18 18:59 06:59 18:59 Intake Total 1720 / 1720 1200 / 1200 Output Total 550 / 550 Balance 1170 / 1170 1200 / 1200 Weight 100.1 kg Intake: IV 1000 / 1000 1000 / 1000 NS Inj 1,000 ML @ 75 mls/hr IV. 1000 / 1000 1000 / 1000 CONT .[id number] [facility] Rx#:[id number] Oral 720 / 720 200 / 200 Output: Urine 550 / 550 Other: # Voids 1 Date of Last Bowel Movement 07/27/18 07/27/18 07/27/18 Narrative: GENERAL: This, well-developed patient, in no apparent distress. CARDIOVASCULAR: Regular rate and rhythm without murmurs, gallops, or rubs. RESPIRATORY: Clear to auscultation. Breath sounds equal bilaterally. No wheezes , rales, or rhonchi. GASTROINTESTINAL: Abdomen soft, non-tender, nondistended. Normal active bowel sounds. MUSCULOSKELETAL: Extremities without clubbing, cyanosis, or edema. NEURO: Alert & Oriented. Moves all ext x4. Results - Labs CBC & Chem 7: 07/26/18 07:57 07/27/18 06:30 Laboratory Results - last 24 hr 07/29/18 07/29/18 07/30/18 16:47 20:48 07:57 POC Glucose 99 96 95 07/30/18 12:28 POC Glucose 102 - Procedures None Assessment and Plan - Plan 58-year-old man with Metastatic Renal Cell Carcinoma to the Lung, Retroperitoneum, Bone and Brain, -Oncology following and Carbozantinib on hold. Hospice consult has been placed. -continue supportive care. Continue current pain medication along with IV Dilaudid for breakthrough pain. PE/ DVT of the right lower extremity Echo with EF 45-50%. -Continue with Lovenox 100 mg twice daily per hematology Hypertension controlled. -Currently on losartan 50 mg daily. COPD -continue Bronchodilator, Mucolytic incentive spirometry. DM II -continue sliding scale. GERD -on GI prophylaxis. Anemia of chronic disease -Oncology following. PPx: Lovenox
[2018-07-30 22:11] VITALS: RESP 18
[2018-07-31] MEDS: Sod Chloride 0.9% Inj 1,000 ML IV.CONT SCH (06:11)
[2018-07-31] MEDS: Pantoprazole Sodium 20 MG DR Tablet PO SCH (10:49)
[2018-07-31] MEDS: Magnesium Oxide 400 MG Tablet PO SCH (10:49)
[2018-07-31] MEDS: Enoxaparin Inj 100 MG/ML Syringe SQ SCH (10:50)
[2018-07-31] MEDS: guaiFENesin 600 MG ER Tablet PO SCH (10:50)
[2018-07-31] MEDS: Ferrous Sulfate 325 MG Tablet PO SCH (10:50)
[2018-07-31] MEDS: Sodium Chloride 0.9% 2 ML Flush BID IV.FLUSH SCH (10:51)
--- NOTE | 2018-07-31 11:24 | P.PNONC ---
Subjective Interval history: Patient lying in bed, in no acute distress. His is at the bedside. He reports constant nausea, increase in cough and shortness of breath. Objective Vital Signs/Intake & Output: Vital Signs 07/30/18 12:00 07/30/18 16:00 07/30/18 20:00 Temperature 98.6 F 98 F 98.1 F Pulse Rate 98 H 82 89 Respiratory Rate 18 20 18 Blood Pressure 103/79 131/80 148/95 H Pulse Oximetry 96 96 99 07/31/18 00:00 07/31/18 04:00 07/31/18 08:00 Temperature 97.7 F 98.4 F 98.5 F Pulse Rate 94 H 96 H 101 H Respiratory Rate 18 18 18 Blood Pressure 105/77 152/90 H 147/96 H Pulse Oximetry 96 98 99 Intake & Output 07/30/18 07/31/18 07/31/18 18:59 06:59 18:59 Intake Total 1860 / 1860 1200 / 1200 Output Total 640 / 640 700 / 700 Balance 1220 / 1220 500 / 500 Weight 102 kg Intake: IV 1000 / 1000 1000 / 1000 NS Inj 1,000 ML @ 75 mls/hr IV. 1000 / 1000 1000 / 1000 CONT .[id number] [facility] Rx#:[id number] Oral 860 / 860 200 / 200 Output: Urine 640 / 640 700 / 700 Other: # Voids 1 Date of Last Bowel Movement 07/27/18 07/27/18 07/27/18 # Bowel Movements 1 Result Diagrams: 07/26/18 07:57 07/27/18 06:30 Laboratory Results: Laboratory Results - last 24 hr 07/30/18 07/30/18 07/30/18 12:28 17:28 21:04 POC Glucose 102 118 H 143 H Medications: Active Medications Generic Name Dose Route Start Last Admin Trade Name Freq PRN Reason Stop Dose Admin Hydrocodone Bitart/Acetaminophen 1 tab 07/28/18 09:04 07/30/18 10:11 [place] 10/325 PO 1 tab Q4H PRN Administration pain Citalopram Hydrobromide 40 mg 07/26/18 09:00 07/31/18 10:50 Celexa PO 40 mg DAILY JOLENE Administration Clonidine HCl 0.2 mg 07/26/18 09:00 07/31/18 10:49 Catapres PO 0.2 mg DAILY JOLENE Administration Enoxaparin Sodium 100 mg 07/27/18 10:30 07/31/18 10:50 Lovenox Inj SQ 100 mg Q12HR J[facility] Administration Ferrous Sulfate 325 mg 07/26/18 09:00 07/31/18 10:50 Ferosul PO 325 mg BID JOLENE Administration Guaifenesin 600 mg 07/25/18 21:00 07/31/18 10:50 Mucinex Er PO 600 mg BID JOLENE Administration Sodium Chloride 1,000 mls @ 75 mls/hr 07/25/18 17:45 07/31/18 06:11 Ns Inj IV.CONT 75 mls/hr .[id number] [facility] Administration Insulin Aspart 0 unit 07/27/18 12:00 07/30/18 21:06 Novolog Insulin Correctional Sugar Inj SQ Not Given ,,, [facility] Protocol Lorazepam 0.5 mg 07/25/18 23:04 07/27/18 21:00 Ativan PO 0.5 mg BID PRN Administration Anxiety Losartan Potassium 50 mg 07/28/18 09:00 07/31/18 10:49 Cozaar PO 50 mg DAILY JOLENE Administration Magnesium Oxide 400 mg 07/26/18 11:00 07/31/18 10:49 Mag-Ox PO 400 mg DAILY@1100 JOLENE Administration Pantoprazole Sodium 20 mg 07/26/18 09:00 07/31/18 10:49 Protonix PO 20 mg DAILY JOLENE Administration Sodium Chloride 2 ml 07/25/18 21:00 07/31/18 10:51 Ns Flush IV.FLUSH 2 ml BID JOLENE Administration Objective Remarks: GENERAL: Well-nourished, well-developed male patient, in no acute distress. SKIN: Warm and dry. HEAD: Normocephalic. EYES: No scleral icterus. No injection or drainage. NECK: Supple, trachea midline. CARDIOVASCULAR: Regular rate and rhythm without murmurs. RESPIRATORY: Anterior breath sounds with expiratory wheezes, equal bilaterally. No accessory muscle use. O2 via nasal cannula. GASTROINTESTINAL: Abdomen soft, non-tender, nondistended. EXTREMITIES: No cyanosis, or edema. MUSCULOSKELETAL: Adequate muscle tone. NEUROLOGICAL: No obvious focal deficit. Awake, alert, and oriented x3. PSYCHIATRIC: Flat affect; insight and judgment normal. Assessment/Plan - Plan 1. Metastatic RCC: holding cabozantinib. Patient's prefers to take him home with hospice care. Hospice has been following and have a meeting today at 1300. 2. PE seen on CT: DVT noted in the right common femoral, greater saphenous and posterior tibial veins. Continue on Lovenox 100 mg BID. MRI brain with no evidence of residual lesions. 3. Increasing cough and expiratory wheezing. Albuterol nebulizer as needed. 4. Continue supportive care.
--- NOTE | 2018-07-31 12:17 | P.PN ---
Subjective Interval history: Follow-up renal cell carcinoma with metastasis/PE and DVT July 30, 2018-patient seen and examined,. Denies any chest pain or shortness of breath. Diarrhea improving. Hospice consultation pending July 31, 2018-patient seen and examined, he has no complaint this AM; no SOB /CP/Dizziness. States he had a better night. afebrile Physical Exam Vital signs: Vital Signs 07/30/18 16:00 07/30/18 20:00 07/31/18 00:00 Temperature 98 F 98.1 F 97.7 F Pulse Rate 82 89 94 H Respiratory Rate 20 18 18 Blood Pressure 131/80 148/95 H 105/77 Pulse Oximetry 96 99 96 07/31/18 04:00 07/31/18 08:00 Temperature 98.4 F 98.5 F Pulse Rate 96 H 101 H Respiratory Rate 18 Blood Pressure 152/90 H 147/96 H Pulse Oximetry 98 99 Intake & Output 07/30/18 07/31/18 07/31/18 18:59 06:59 18:59 Intake Total 1860 / 1860 1200 / 1200 Output Total 640 / 640 700 / 700 Balance 1220 / 1220 500 / 500 Weight 102 kg Intake: IV 1000 / 1000 1000 / 1000 NS Inj 1,000 ML @ 75 mls/hr IV. 1000 / 1000 1000 / 1000 CONT .[id number] [facility] Rx#:[id number] Oral 860 / 860 200 / 200 Output: Urine 640 / 640 700 / 700 Other: # Voids 1 Date of Last Bowel Movement 07/27/18 07/27/18 07/27/18 # Bowel Movements 1 Narrative: GENERAL: This, well-developed patient, in no apparent distress. CARDIOVASCULAR: Regular rate and rhythm without murmurs, gallops, or rubs. RESPIRATORY: Clear to auscultation. Breath sounds equal bilaterally. No wheezes , rales, or rhonchi. GASTROINTESTINAL: Abdomen soft, non-tender, nondistended. Normal active bowel sounds. MUSCULOSKELETAL: Extremities without clubbing, cyanosis, or edema. NEURO: Alert & Oriented. Moves all ext x4. Results - Labs CBC & Chem 7: 07/26/18 07:57 07/27/18 06:30 Laboratory Results - last 24 hr 07/30/18 07/30/18 07/30/18 12:28 17:28 21:04 POC Glucose 102 118 H 143 H 07/31/18 11:24 POC Glucose 104 - Procedures None Assessment and Plan - Plan 58-year-old man with Metastatic Renal Cell Carcinoma to the Lung, Retroperitoneum, Bone and Brain, -Oncology following and Carbozantinib on hold. Hospice consult pending and will have meeting with the family today 07/31/18 @13:00 -continue supportive care. Continue current pain medication along with IV Dilaudid for breakthrough pain. PE/ DVT of the right lower extremity Echo with EF 45-50%. -Continue with Lovenox 100 mg twice daily per hematology Hypertension controlled. -Currently on losartan 50 mg daily. COPD -continue Bronchodilator, Mucolytic incentive spirometry. DM II -continue sliding scale. GERD -on GI prophylaxis. Anemia of chronic disease -Oncology following. PPx: Lovenox
[2018-07-31 14:03] VITALS: BP 119/88; PULSE 89; TEMP 97.6; O2SAT 97
--- NOTE | 2018-07-31 14:34 | P.DS ---
Date of admission: 07/25/18 16:43 Primary care physician: UNKNOWN Brief History from admission: This is a pleasant 58 y/o Male with Hypertension, DM II, COPD, GERD, benign heart murmur, Right thyroid nodules status post biopsy, with Stage IV Metastatic Renal Cell Carcinoma, Metastatic to the Lung retroperitoneum Bone and Brain. Doctor Elvira Badillo Notes: He had previously been followed while in the inpatient hospital stay he was hospitalized from January 06, 2018 through January [id number]. He initially presented to the hospital with a 4-5 week history of worsening right hip pain. This hip pain is been present for several weeks however over the past several days leading up to admission it had been progressively worsening. Imaging studies in the emergency room revealed a pathologic right iliac wing fracture with a 4.9 cm lytic lesion involving the lateral iliac wing with associated soft tissue swelling. He also has unintentional weight loss low-grade fever and drenching night sweats. CT scan of the chest with numerous lung nodules consistent with widespread metastatic disease large left renal mass thought to represent renal cell carcinoma moderate hiatal hernia and a 2.[address] scan of the abdomen and pelvis showed a large left renal mass enlarged lymph node in the left retroperitoneum numerous masses in the lung bases likely related to metastatic disease pathologic fracture through metastatic lesion in the right iliac bone.. He underwent biopsy of the right ilium lesion which showed metastatic clear cell renal carcinoma. Recent results of MRI brain with 3 small intraparenchymal located within the right frontal lobe right temporal lobe and left temporal lobe. Cutaneous nodule involving the right parietal soft tissues. This extends from the outer cortex of the calvarium superficially forming an exophytic soft tissue. Cutaneous metastasis cannot be excluded. Patient reports that he has been to see the harvester operator. Biopsy of lesions on head returned as renal cell carcinoma. On this opportunity send by his Primary military technology specialist due to that the patient is dehydrated not eating or drinking properly, probable infection, asked for CT abdomen and Pelvis and laboratory stat and direct admission performed. started on IV fluids, probable infection to rule out , palliative care consult. DS: Summary Hospital Course: while in the hospital, patient was treated for: Metastatic Renal Cell Carcinoma to the Lung, Retroperitoneum, Bone and Brain, -Oncology following and Carbozantinib on hold. Hospice was consulted and patient will be discharged home with Hospice -continue supportive care. Continue current pain medication along with IV Dilaudid for breakthrough pain. PE/ DVT of the right lower extremity Echo with EF 45-50%. -Continue with Lovenox 100 mg twice daily per hematology ; Patient will be discharged on Eliquis Hypertension controlled. -Treated with losartan 50 mg daily. COPD -Treated with Bronchodilator, Mucolytic incentive spirometry. DM II -continue sliding scale. GERD -on GI prophylaxis. Anemia of chronic disease -Oncology following. PPx: Lovenox - Time Spent with Patient Total time spent providing and/or coordinating discharge services: Greater than 30 minutes - Quality: VTE Deep Vein Thrombosis/Pulmonary Embolism Present on Admission: No Exam Vital signs: Vital Signs 07/30/18 16:00 07/30/18 20:00 07/31/18 00:00 Temperature 98 F 98.1 F 97.7 F Pulse Rate 82 89 94 H Respiratory Rate 18 18 Blood Pressure 131/80 148/95 H 105/77 Pulse Oximetry 96 99 96 07/31/18 04:00 07/31/18 08:00 07/31/18 12:00 Temperature 98.4 F 98.5 F 97.6 F Pulse Rate 96 H 101 H 89 Respiratory Rate 18 18 Blood Pressure 152/90 H 147/96 H 119/88 Pulse Oximetry 98 99 97 Intake & Output 07/30/18 07/31/18 07/31/18 18:59 06:59 18:59 Intake Total 1860 / 1860 1200 / 1200 Output Total 640 / 640 700 / 700 Balance 1220 / 1220 500 / 500 Weight 102 kg Intake: IV 1000 / 1000 1000 / 1000 NS Inj 1,000 ML @ 75 mls/hr IV. 1000 / 1000 1000 / 1000 CONT .[id number] [facility] Rx#:[id number] Oral 860 / 860 200 / 200 Output: Urine 640 / 640 700 / 700 Other: # Voids 1 Date of Last Bowel Movement 07/27/18 07/27/18 07/27/18 # Bowel Movements 1 Narrative: GENERAL: This, well-developed patient, in no apparent distress. CARDIOVASCULAR: Regular rate and rhythm without murmurs, gallops, or rubs. RESPIRATORY: Clear to auscultation. Breath sounds equal bilaterally. No wheezes , rales, or rhonchi. GASTROINTESTINAL: Abdomen soft, non-tender, nondistended. Normal active bowel sounds. MUSCULOSKELETAL: Extremities without clubbing, cyanosis, or edema. NEURO: Alert & Oriented. Moves all ext x4. Results Procedures completed during hospitalization: None Labs on day of discharge: Labs from last 24 hours 07/31/18 07/31/18 07/30/18 14:06 11:24 21:04 POC Glucose 124 H 104 143 H 07/30/18 17:28 POC Glucose 118 H - Impressions ITS Impressions Abdomen/Pelvis CT 07/26/18 00:00 CONCLUSION: Large left renal cell carcinoma with metastatic disease likely to contralateral kidney, liver, right adrenal gland, subcutaneous tissues, bony elements and para -aortic lymph nodes Chest CT 07/26/18 00:00 CONCLUSION: 1. Widespread metastatic disease involving lungs, mediastinum, bony elements and subcutaneous tissues. 2. Small pericardial effusion of undetermined etiology. 3. Pulmonary embolism Head MRI 07/26/18 00:00 CONCLUSION: 1. History of metastatic disease to the brain. No residual enhancing lesions, mass effect, or areas of cerebral edema. Humerus CT 07/27/18 00:00 CONCLUSION: 1. There are 2 osteolytic lesions identified, involving the subglenoid scapula and the superior humeral head. There is also a subcutaneous soft tissue nodule lateral left chest wall. These are similar in appearance to yesterday's CT thorax. Venous Doppler Study 07/27/18 00:00 CONCLUSION: Deep venous thrombus within the right common femoral, greater saphenous and posterior tibial veins. Discharge Plan - Discharge Disposition Patient Disposition: 50 Hospice/Home - Discharge Condition Condition: Fair - Discharge Order Discharge Orders: Discharge Order (Routine); Ordered 07/31/18 Ordered By: Endy Mullins - Physicians Team Primary Care Provider: UNKNOWN, Attending Provider: Endy Mullins Other Providers: Elvira Badillo N - Rxs /Orders / Referrals /Forms Prescriptions: New apixaban [Eliquis] 2.5 mg Tablet 5 mg PO BID Qty: 60 RF: 0 Continue bisacodyl 5 mg PO PRN cabozantinib [Cabometyx] 60 mg Tablet 60 mg PO DAILY citalopram 40 mg Tablet 40 mg PO DAILY clonidine HCl 0.2 mg Tablet 0.2 mg PO DAILY ferrous sulfate 324 mg (65 mg iron) Tablet,Delayed Release (Dr/Ec) 324 mg PO BID glimepiride 4 mg PO BID lorazepam 0.5 mg Tablet 0.5 mg PO PRN PRN (Reason: Anxiety) losartan 100 mg PO DAILY omeprazole 20 mg Tablet,Delayed Release (Dr/Ec) 20 mg PO DAILY ondansetron HCl 8 mg PO PRN oxycodone-acetaminophen 5 - 325 mg PO Q6HR PRN (Reason: Pain) prochlorperazine maleate 10 mg Tablet 10 mg PO PRN triamterene-hydrochlorothiazid 37.5-25 mg Tablet 1 tab PO DAILY Referrals: UNKNOWN, [Primary Care Provider] - See Instructions
== END 2018-07-31 17:06 | disposition hospice, home (50) ==
LOC: N04 16:43 → HCIN 07-28 17:32
PROVIDERS: ADMIT Hospitalist; ATTEND Hospitalist